=== PATIENT | female | born 1940 | race Caucasian/White ===

== ENCOUNTER → 2017-10-16 | Outpatient (CLI) | payer MEDICARE, BC ==
[~2017-10-16] MED LIST: ASPI325 PO; BREO ELLIPTA 11 EACH IH; CULTURELLE1 EACH PO; Dilt-Xr120 MG PO; ESTROGEN PATCH; FOLIC ACID PO; METTREX2.5; OMEP20ER PO; POLY500 PO; PROBIOTIC1 EAC2 PO; Remicade100 MG IV; [UNRECOGNIZED DRUG - OTHER]; [UNRECOGNIZED DRUG - REMARK]
== END ==
LOC: LAB SHORT 08:15 → LAB 08:15 → LAB FUT 10-11 15:10
DX: A09 Infectious gastroenteritis and colitis, unspecified (principal)
CPT/HCPCS: 87015; 87045; 87046; 87177; 87205; 87209; 87493; 87899

== ENCOUNTER 2017-10-21 00:42 | Day surgery (SDC) | payer MEDICARE, BC ==
[~2017-10-21 00:42] MED LIST changes: -CULTURELLE1 EACH PO
[2017-10-21 09:31] LABS: BASOPHILS ABSOLUTE AUTO 0.06 K/mm3 (0.00-0.23); BASOPHILS PERCENT AUTO 1 % (0-2); EOSINOPHILS ABSOLUTE AUTO 0.34 K/mm3 (0.00-0.68); EOSINOPHILS PERCENT AUTO 5 % (0-6); Hematocrit 38.8 % (33.0-51.0); IMMATURE GRAN ABSOLUTE AUTO 0.02 K/mm3 (0.00-0.10); IMMATURE GRAN PERCENT AUTO 0 % (0-1); LYMPHOCYTES ABSOLUTE AUTO 1.86 K/mm3 (0.84-5.20); LYMPHOCYTES PERCENT AUTO 26 % (21-46); MONOCYTES PERCENT AUTO 14 % (4-13); Mean Corpuscular HGB 33.3 pg (26.0-34.0); Mean Corpuscular HGB Conc 33.5 g/dL (31.5-36.5); Mean Corpuscular Volume 100 fL (80-100); Mean Platelet Volume 9.4 fL (9.1-12.4); NEUTROPHILS ABSOLUTE AUTO 3.96 K/mm3 (1.96-9.15); NEUTROPHILS PERCENT AUTO 55 % (41-73); Platelet Count 315 K/mm3 (150-400); RDW Coefficient Variation 14.7 % (11.7-14.2); RDW Standard Deviation 53.4 fL (35.1-46.3); White Blood Cell Count 7.24 K/mm3 (4.00-11.30)
[2017-10-21 09:51] LABS: Alanine Aminotransfer (ALT/SGP 18 U/L (12-78); Albumin, Blood 3.5 g/dL (3.4-5.0); Albumin/Globulin Ratio 0.9 (0.8-1.8); Alk Phos 73 U/L (50-136); Anion Gap 6 mmol/L (6-16); Aspartate Aminotrans (AST/SGOT 15 U/L (12-37); Bilirubin, Total 0.3 mg/dL (0.1-1.0); Blood Urea Nitrogen 22 mg/dL (8-24); Bun/Creatinine Ratio 30.6 (12.0-20.0); CO2, Blood 26 mmol/L (21-32); Calcium, Blood 8.9 mg/dL (8.5-10.1); Chloride, Blood 108 mmol/L (98-108); Creatinine, Blood 0.72 mg/dL (0.40-1.00); Globulin, Blood 4.1 g/dL (2.2-4.0); Glomerular Filtration Rate >60 (60-); Glucose, Blood 84 mg/dL (70-99); Potassium, Blood 4.6 mmol/L (3.5-5.5); Sodium, Blood 140 mmol/L (136-145); Total Protein, Blood 7.6 g/dL (6.4-8.2)
== END 2017-10-21 11:23 | disposition home or self-care (01) ==
LOC: ATC 00:42
PROVIDERS: Family Medicine
DX: M06.9 Rheumatoid arthritis, unspecified (principal); Z87.891 Personal history of nicotine dependence; I10 Essential (primary) hypertension; K21.9 Gastro-esophageal reflux disease without esophagitis
CPT/HCPCS: 80053; 85025; 96413; 96415; J1745; J7050; Q5102-ZB

== ENCOUNTER 2017-12-16 01:15 | Day surgery (SDC) | payer MEDICARE, BC ==
[2017-12-16] MEDS ORDERED: CULTURELLE1 EACH PO (09:18)
[2017-12-16 09:29] LABS: BASOPHILS ABSOLUTE AUTO 0.06 K/mm3 (0.00-0.23); BASOPHILS PERCENT AUTO 1 % (0-2); EOSINOPHILS ABSOLUTE AUTO 0.26 K/mm3 (0.00-0.68); EOSINOPHILS PERCENT AUTO 4 % (0-6); Hemoglobin 13.7 g/dL (11.5-16.0); IMMATURE GRAN ABSOLUTE AUTO 0.01 K/mm3 (0.00-0.10); IMMATURE GRAN PERCENT AUTO 0 % (0-1); LYMPHOCYTES ABSOLUTE AUTO 1.96 K/mm3 (0.84-5.20); LYMPHOCYTES PERCENT AUTO 28 % (21-46); MONOCYTES ABSOLUTE AUTO 0.88 K/mm3 (0.16-1.47); MONOCYTES PERCENT AUTO 12 % (4-13); Mean Corpuscular HGB 32.6 pg (26.0-34.0); Mean Corpuscular HGB Conc 32.6 g/dL (31.5-36.5); Mean Corpuscular Volume 100 fL (80-100); Mean Platelet Volume 8.8 fL (9.1-12.4); NEUTROPHILS ABSOLUTE AUTO 3.91 K/mm3 (1.96-9.15); NEUTROPHILS PERCENT AUTO 55 % (41-73); Platelet Count 271 K/mm3 (150-400); RDW Coefficient Variation 13.9 % (11.7-14.2); RDW Standard Deviation 51.1 fL (35.1-46.3); White Blood Cell Count 7.08 K/mm3 (4.00-11.30)
[2017-12-16 09:57] LABS: Alanine Aminotransfer (ALT/SGP 23 U/L (12-78); Albumin, Blood 3.6 g/dL (3.4-5.0); Albumin/Globulin Ratio 0.8 (0.8-1.8); Alk Phos 78 U/L (50-136); Anion Gap 9 mmol/L (6-16); Aspartate Aminotrans (AST/SGOT 23 U/L (12-37); Bilirubin, Total 0.5 mg/dL (0.1-1.0); Blood Urea Nitrogen 24 mg/dL (8-24); Bun/Creatinine Ratio 31.3 (12.0-20.0); CO2, Blood 24 mmol/L (21-32); Calcium, Blood 9.3 mg/dL (8.5-10.1); Chloride, Blood 106 mmol/L (98-108); Creatinine, Blood 0.77 mg/dL (0.40-1.00); Globulin, Blood 4.5 g/dL (2.2-4.0); Glomerular Filtration Rate >60 (60-); Glucose, Blood 71 mg/dL (70-99); Potassium, Blood 4.2 mmol/L (3.5-5.5); Sodium, Blood 139 mmol/L (136-145); Total Protein, Blood 8.1 g/dL (6.4-8.2)
== END 2017-12-16 11:29 | disposition home or self-care (01) ==
LOC: ATC 01:15
PROVIDERS: Family Medicine
DX: M06.9 Rheumatoid arthritis, unspecified (principal)
CPT/HCPCS: 80053; 85025; 96413; 96415

== ENCOUNTER → 2018-06-16 | Outpatient (CLI) | payer MEDICARE, BC ==
[~2018-06-16] MED LIST changes: +CULTURELLE1 EACH PO
[2018-06-18 15:08] LABS: HPV 16 Negative (Negative); HPV 18 Negative (Negative); HPV OTHER HR TYPES Negative (Negative)
== END ==
LOC: LAB 15:11 → LAB SHORT 15:11
PROVIDERS: Nurse Practitioner Women's Health
DX: Z12.72 Encounter for screening for malignant neoplasm of vagina (principal)
CPT/HCPCS: 87624; G0123

== ENCOUNTER 2018-11-24 00:06 | Day surgery (SDC) | payer MEDICARE, BC ==
[2018-11-24 08:30] LABS: BASOPHILS PERCENT AUTO 1 % (0-2); EOSINOPHILS ABSOLUTE AUTO 0.41 K/mm3 (0.00-0.68); EOSINOPHILS PERCENT AUTO 5 % (0-6); Hematocrit 42.6 % (33.0-51.0); Hemoglobin 13.7 g/dL (11.5-16.0); IMMATURE GRAN ABSOLUTE AUTO 0.03 K/mm3 (0.00-0.10); IMMATURE GRAN PERCENT AUTO 0 % (0-1); LYMPHOCYTES ABSOLUTE AUTO 2.03 K/mm3 (0.84-5.20); LYMPHOCYTES PERCENT AUTO 25 % (21-46); MONOCYTES ABSOLUTE AUTO 1.08 K/mm3 (0.16-1.47); MONOCYTES PERCENT AUTO 13 % (4-13); Mean Corpuscular HGB 32.5 pg (26.0-34.0); Mean Corpuscular HGB Conc 32.2 g/dL (31.5-36.5); Mean Corpuscular Volume 101 fL (80-100); Mean Platelet Volume 9.3 fL (9.1-12.4); NEUTROPHILS ABSOLUTE AUTO 4.54 K/mm3 (1.96-9.15); NEUTROPHILS PERCENT AUTO 55 % (41-73); Platelet Count 294 K/mm3 (150-400); RDW Standard Deviation 51.5 fL (35.1-46.3); Red Blood Cell Count 4.21 M/mm3 (3.80-5.20); White Blood Cell Count 8.19 K/mm3 (4.00-11.30)
[2018-11-24 08:40] LABS: Alanine Aminotransfer (ALT/SGP 22 U/L (12-78); Albumin, Blood 3.4 g/dL (3.4-5.0); Albumin/Globulin Ratio 0.7 (0.8-1.8); Alk Phos 75 U/L (50-136); Anion Gap 7 mmol/L (6-16); Aspartate Aminotrans (AST/SGOT 22 U/L (12-37); Bilirubin, Total 0.3 mg/dL (0.1-1.0); Blood Urea Nitrogen 24 mg/dL (8-24); Bun/Creatinine Ratio 28.6 (12.0-20.0); CO2, Blood 25 mmol/L (21-32); Chloride, Blood 108 mmol/L (98-108); Creatinine, Blood 0.84 mg/dL (0.40-1.00); Globulin, Blood 4.6 g/dL (2.2-4.0); Glomerular Filtration Rate >60 (60-); Glucose, Blood 86 mg/dL (70-99); Potassium, Blood 4.1 mmol/L (3.5-5.5); Sodium, Blood 140 mmol/L (136-145)
== END 2018-11-24 10:26 | disposition home or self-care (01) ==
LOC: ATC 00:06
PROVIDERS: Family Medicine
DX: M06.9 Rheumatoid arthritis, unspecified (principal); Z79.899 Other long term (current) drug therapy; Z88.8 Allergy status to other drugs, medicaments and biological substances
CPT/HCPCS: 80053; 85025; 96413; 96415; J7050; Q5103

== ENCOUNTER 2019-01-19 00:24 | Day surgery (SDC) | payer MEDICARE, BC ==
--- NOTE | 2019-01-19 09:59 | NUR ---
UNABLE TO DRAW BLOOD BACK FROM IV, APPEARS TO BE AGAINST VALVE. PT STATES SHE DOESNT WANT TO BE HAVE ANOTHER NEEDLE FOR LABS AND SHE WILL EITHER WAIT UNTIL NEXT INFUSION OR GO TO OUTPATIENT LAB.
== END 2019-01-19 12:20 | disposition home or self-care (01) ==
LOC: ATC 00:24
DX: M06.9 Rheumatoid arthritis, unspecified (principal); K21.9 Gastro-esophageal reflux disease without esophagitis; I10 Essential (primary) hypertension; K59.09 Other constipation; Z88.2 Allergy status to sulfonamides; Z88.1 Allergy status to other antibiotic agents; Z88.5 Allergy status to narcotic agent
CPT/HCPCS: J7050; Q5103

== ENCOUNTER 2019-03-16 08:27 | Day surgery (SDC) | payer MEDICARE, BC ==
[2019-03-16 09:06] LABS: BASOPHILS ABSOLUTE AUTO 0.05 K/mm3 (0.00-0.23); BASOPHILS PERCENT AUTO 1 % (0-2); EOSINOPHILS ABSOLUTE AUTO 0.32 K/mm3 (0.00-0.68); EOSINOPHILS PERCENT AUTO 5 % (0-6); Hematocrit 39.4 % (33.0-51.0); Hemoglobin 12.8 g/dL (11.5-16.0); IMMATURE GRAN ABSOLUTE AUTO 0.01 K/mm3 (0.00-0.10); IMMATURE GRAN PERCENT AUTO 0 % (0-1); LYMPHOCYTES ABSOLUTE AUTO 1.92 K/mm3 (0.84-5.20); LYMPHOCYTES PERCENT AUTO 29 % (21-46); MONOCYTES ABSOLUTE AUTO 0.85 K/mm3 (0.16-1.47); MONOCYTES PERCENT AUTO 13 % (4-13); Mean Corpuscular HGB Conc 32.5 g/dL (31.5-36.5); Mean Corpuscular Volume 102 fL (80-100); Mean Platelet Volume 9.6 fL (9.1-12.4); NEUTROPHILS ABSOLUTE AUTO 3.49 K/mm3 (1.96-9.15); NEUTROPHILS PERCENT AUTO 53 % (41-73); Platelet Count 263 K/mm3 (150-400); RDW Coefficient Variation 13.7 % (11.7-14.2); Red Blood Cell Count 3.88 M/mm3 (3.80-5.20); White Blood Cell Count 6.64 K/mm3 (4.00-11.30)
[2019-03-16 09:31] LABS: Alanine Aminotransfer (ALT/SGP 19 U/L (12-78); Albumin, Blood 3.5 g/dL (3.4-5.0); Albumin/Globulin Ratio 0.8 (0.8-1.8); Alk Phos 67 U/L (50-136); Anion Gap 6 mmol/L (6-16); Aspartate Aminotrans (AST/SGOT 26 U/L (12-37); Bilirubin, Total 0.4 mg/dL (0.1-1.0); Blood Urea Nitrogen 27 mg/dL (8-24); Bun/Creatinine Ratio 32.2 (12.0-20.0); CO2, Blood 26 mmol/L (21-32); Calcium, Blood 8.8 mg/dL (8.5-10.1); Chloride, Blood 108 mmol/L (98-108); Creatinine, Blood 0.84 mg/dL (0.40-1.00); Globulin, Blood 4.2 g/dL (2.2-4.0); Glomerular Filtration Rate >60 (60-); Glucose, Blood 71 mg/dL (70-99); Potassium, Blood 4.2 mmol/L (3.5-5.5); Sodium, Blood 140 mmol/L (136-145); Total Protein, Blood 7.7 g/dL (6.4-8.2)
== END 2019-03-16 11:04 | disposition home or self-care (01) ==
LOC: ATC 08:27
PROVIDERS: Family Medicine
DX: M06.9 Rheumatoid arthritis, unspecified (principal); I10 Essential (primary) hypertension; K21.9 Gastro-esophageal reflux disease without esophagitis; Z79.899 Other long term (current) drug therapy; Z87.891 Personal history of nicotine dependence
CPT/HCPCS: 80053; 85025; 96413; 96415; J7050; Q5103

== ENCOUNTER 2019-05-11 08:30 | Day surgery (SDC) | payer MEDICARE, BC ==
[2019-05-11 09:08] LABS: BASOPHILS ABSOLUTE AUTO 0.09 K/mm3 (0.00-0.23); BASOPHILS PERCENT AUTO 1 % (0-2); EOSINOPHILS ABSOLUTE AUTO 0.34 K/mm3 (0.00-0.68); EOSINOPHILS PERCENT AUTO 5 % (0-6); Hematocrit 40.5 % (33.0-51.0); Hemoglobin 13.1 g/dL (11.5-16.0); IMMATURE GRAN ABSOLUTE AUTO 0.02 K/mm3 (0.00-0.10); IMMATURE GRAN PERCENT AUTO 0 % (0-1); LYMPHOCYTES ABSOLUTE AUTO 1.76 K/mm3 (0.84-5.20); LYMPHOCYTES PERCENT AUTO 26 % (21-46); MONOCYTES ABSOLUTE AUTO 0.89 K/mm3 (0.16-1.47); MONOCYTES PERCENT AUTO 13 % (4-13); Mean Corpuscular HGB 32.6 pg (26.0-34.0); Mean Corpuscular HGB Conc 32.3 g/dL (31.5-36.5); Mean Corpuscular Volume 101 fL (80-100); Mean Platelet Volume 9.4 fL (9.1-12.4); NEUTROPHILS ABSOLUTE AUTO 3.66 K/mm3 (1.96-9.15); NEUTROPHILS PERCENT AUTO 54 % (41-73); Platelet Count 249 K/mm3 (150-400); RDW Coefficient Variation 13.4 % (11.7-14.2); RDW Standard Deviation 49.6 fL (35.1-46.3); Red Blood Cell Count 4.02 M/mm3 (3.80-5.20); White Blood Cell Count 6.76 K/mm3 (4.00-11.30)
[2019-05-11 09:32] LABS: Alanine Aminotransfer (ALT/SGP 16 U/L (12-78); Albumin, Blood 3.3 g/dL (3.4-5.0); Albumin/Globulin Ratio 0.8 (0.8-1.8); Alk Phos 70 U/L (50-136); Anion Gap 7 mmol/L (6-16); Aspartate Aminotrans (AST/SGOT 14 U/L (12-37); Bilirubin, Total 0.3 mg/dL (0.1-1.0); Blood Urea Nitrogen 32 mg/dL (8-24); Bun/Creatinine Ratio 40.3 (12.0-20.0); CO2, Blood 26 mmol/L (21-32); Chloride, Blood 107 mmol/L (98-108); Globulin, Blood 4.3 g/dL (2.2-4.0); Glomerular Filtration Rate >60 (60-); Glucose, Blood 86 mg/dL (70-99); Potassium, Blood 4.2 mmol/L (3.5-5.5); Sodium, Blood 140 mmol/L (136-145); Total Protein, Blood 7.6 g/dL (6.4-8.2)
== END 2019-05-11 11:20 | disposition home or self-care (01) ==
LOC: ATC 08:30
PROVIDERS: Family Medicine
DX: M06.9 Rheumatoid arthritis, unspecified (principal); K59.09 Other constipation; K21.9 Gastro-esophageal reflux disease without esophagitis; I10 Essential (primary) hypertension; Z88.2 Allergy status to sulfonamides; Z88.1 Allergy status to other antibiotic agents; Z88.5 Allergy status to narcotic agent
CPT/HCPCS: 80053; 85025; 96413; 96415; J7050; Q5103

== ENCOUNTER 2019-07-06 00:11 | Day surgery (SDC) | payer MEDICARE, BC ==
[2019-07-06] MEDS ORDERED: FURO20 (08:32)
[2019-07-06 09:04] LABS: BASOPHILS ABSOLUTE AUTO 0.06 K/mm3 (0.00-0.23); BASOPHILS PERCENT AUTO 1 % (0-2); EOSINOPHILS ABSOLUTE AUTO 0.23 K/mm3 (0.00-0.68); EOSINOPHILS PERCENT AUTO 3 % (0-6); Hematocrit 41.7 % (33.0-51.0); Hemoglobin 13.4 g/dL (11.5-16.0); IMMATURE GRAN ABSOLUTE AUTO 0.01 K/mm3 (0.00-0.10); IMMATURE GRAN PERCENT AUTO 0 % (0-1); LYMPHOCYTES ABSOLUTE AUTO 2.26 K/mm3 (0.84-5.20); LYMPHOCYTES PERCENT AUTO 31 % (21-46); MONOCYTES ABSOLUTE AUTO 0.96 K/mm3 (0.16-1.47); MONOCYTES PERCENT AUTO 13 % (4-13); Mean Corpuscular HGB 31.8 pg (26.0-34.0); Mean Corpuscular HGB Conc 32.1 g/dL (31.5-36.5); Mean Corpuscular Volume 99 fL (80-100); Mean Platelet Volume 9.7 fL (9.1-12.4); NEUTROPHILS ABSOLUTE AUTO 3.77 K/mm3 (1.96-9.15); NEUTROPHILS PERCENT AUTO 52 % (41-73); Platelet Count 288 K/mm3 (150-400); RDW Coefficient Variation 13.6 % (11.7-14.2); RDW Standard Deviation 49.2 fL (35.1-46.3); Red Blood Cell Count 4.22 M/mm3 (3.80-5.20); White Blood Cell Count 7.29 K/mm3 (4.00-11.30)
[2019-07-06 09:23] LABS: Alanine Aminotransfer (ALT/SGP 13 U/L (12-78); Albumin, Blood 3.5 g/dL (3.4-5.0); Albumin/Globulin Ratio 0.8 (0.8-1.8); Alk Phos 74 U/L (50-136); Anion Gap 4 mmol/L (6-16); Aspartate Aminotrans (AST/SGOT 16 U/L (12-37); Bilirubin, Total 0.3 mg/dL (0.1-1.0); Blood Urea Nitrogen 37 mg/dL (8-24); Bun/Creatinine Ratio 39.8 (12.0-20.0); CO2, Blood 28 mmol/L (21-32); Chloride, Blood 106 mmol/L (98-108); Creatinine, Blood 0.93 mg/dL (0.40-1.00); Globulin, Blood 4.3 g/dL (2.2-4.0); Glomerular Filtration Rate >60 (60-); Glucose, Blood 98 mg/dL (70-99); Potassium, Blood 3.9 mmol/L (3.5-5.5); Sodium, Blood 138 mmol/L (136-145); Total Protein, Blood 7.8 g/dL (6.4-8.2)
== END 2019-07-06 11:01 | disposition home or self-care (01) ==
LOC: ATC 00:11
PROVIDERS: Family Medicine
DX: M06.9 Rheumatoid arthritis, unspecified (principal); I10 Essential (primary) hypertension; Z88.2 Allergy status to sulfonamides; Z88.1 Allergy status to other antibiotic agents; Z88.5 Allergy status to narcotic agent
CPT/HCPCS: 80053; 85025; 96413; 96415; J7050; Q5103

== ENCOUNTER 2019-08-31 00:26 | Day surgery (SDC) | payer MEDICARE, BC ==
[~2019-08-31 00:26] MED LIST changes: +FURO20
[2019-08-31] MEDS ORDERED: INFLECTRA100 MG IV (09:48)
[2019-08-31 10:11] LABS: BASOPHILS ABSOLUTE AUTO 0.07 K/mm3 (0.00-0.23); BASOPHILS PERCENT AUTO 1 % (0-2); EOSINOPHILS ABSOLUTE AUTO 0.22 K/mm3 (0.00-0.68); EOSINOPHILS PERCENT AUTO 3 % (0-6); Hemoglobin 12.4 g/dL (11.5-16.0); IMMATURE GRAN ABSOLUTE AUTO 0.01 K/mm3 (0.00-0.10); IMMATURE GRAN PERCENT AUTO 0 % (0-1); LYMPHOCYTES PERCENT AUTO 21 % (21-46); MONOCYTES ABSOLUTE AUTO 1.01 K/mm3 (0.16-1.47); MONOCYTES PERCENT AUTO 13 % (4-13); Mean Corpuscular HGB Conc 32.6 g/dL (31.5-36.5); Mean Corpuscular Volume 101 fL (80-100); Mean Platelet Volume 11.7 fL (9.1-12.4); NEUTROPHILS PERCENT AUTO 63 % (41-73); Platelet Count 361 K/mm3 (150-400); RDW Coefficient Variation 14.7 % (11.7-14.2); RDW Standard Deviation 53.2 fL (35.1-46.3); Red Blood Cell Count 3.76 M/mm3 (3.80-5.20); White Blood Cell Count 7.81 K/mm3 (4.00-11.30)
--- NOTE | 2019-08-31 12:21 | NUR ---
PER LAB, CHEM PANEL WAS NOT REPORTED D/T BEING HEMOLYZIED. CBC WAS DRAWN IN 10ML, SAME GREEN TOP. ATTEMPTED TO DRAW OUT OF IV AFTER INFUSION COMPLETE AND FLUSHED WITH 20 ML NS. NOT ABLE TO WITHDRAW BLOOD AND PT REPORTED SHE DID NOT WANT A BLOOD DRAW "STICK". CBC REPORT BACK FROM LAB.
== END 2019-08-31 12:18 | disposition home or self-care (01) ==
LOC: ATC 00:26
PROVIDERS: Family Medicine
DX: M06.9 Rheumatoid arthritis, unspecified (principal); B35.1 Tinea unguium; L84 Corns and callosities; I70.209 Unspecified atherosclerosis of native arteries of extremities, unspecified extremity; M20.40 Other hammer toe(s) (acquired), unspecified foot; Z87.891 Personal history of nicotine dependence
CPT/HCPCS: 85025; 96413; 96415; J7050; Q5103

== ENCOUNTER 2020-01-04 00:30 | Day surgery (SDC) | payer MEDICARE, BC ==
[~2020-01-04 00:30] MED LIST changes: +INFLECTRA100 MG IV
[2020-01-04] MEDS ORDERED: ALBU3IS INH (09:00)
[2020-01-04 09:38] LABS: BASOPHILS ABSOLUTE AUTO 0.08 K/mm3 (0.00-0.23); BASOPHILS PERCENT AUTO 1 % (0-2); EOSINOPHILS ABSOLUTE AUTO 0.33 K/mm3 (0.00-0.68); EOSINOPHILS PERCENT AUTO 4 % (0-6); Hematocrit 41.2 % (33.0-51.0); Hemoglobin 13.2 g/dL (11.5-16.0); IMMATURE GRAN ABSOLUTE AUTO 0.02 K/mm3 (0.00-0.10); IMMATURE GRAN PERCENT AUTO 0 % (0-1); LYMPHOCYTES ABSOLUTE AUTO 2.27 K/mm3 (0.84-5.20); LYMPHOCYTES PERCENT AUTO 29 % (21-46); MONOCYTES ABSOLUTE AUTO 0.82 K/mm3 (0.16-1.47); MONOCYTES PERCENT AUTO 11 % (4-13); Mean Corpuscular HGB 32.4 pg (26.0-34.0); Mean Corpuscular Volume 101 fL (80-100); Mean Platelet Volume 10.3 fL (9.1-12.4); NEUTROPHILS PERCENT AUTO 55 % (41-73); Platelet Count 292 K/mm3 (150-400); RDW Coefficient Variation 14.1 % (11.7-14.2); RDW Standard Deviation 50.2 fL (35.1-46.3); Red Blood Cell Count 4.08 M/mm3 (3.80-5.20); White Blood Cell Count 7.82 K/mm3 (4.00-11.30)
== END 2020-01-04 11:38 | disposition home or self-care (01) ==
LOC: ATC 00:30
PROVIDERS: Family Medicine
DX: M06.9 Rheumatoid arthritis, unspecified (principal); B35.1 Tinea unguium; L84 Corns and callosities; I70.209 Unspecified atherosclerosis of native arteries of extremities, unspecified extremity; M20.40 Other hammer toe(s) (acquired), unspecified foot; Z87.891 Personal history of nicotine dependence
CPT/HCPCS: 85025; J7050; Q5103

== ENCOUNTER 2020-03-07 00:20 | Day surgery (SDC) | payer MEDICARE, BC ==
[~2020-03-07 00:20] MED LIST changes: +ALBU3IS INH
[2020-03-07 09:49] LABS: BASOPHILS ABSOLUTE AUTO 0.04 K/mm3 (0.00-0.23); BASOPHILS PERCENT AUTO 1 % (0-2); EOSINOPHILS ABSOLUTE AUTO 0.27 K/mm3 (0.00-0.68); EOSINOPHILS PERCENT AUTO 4 % (0-6); Hematocrit 35.8 % (33.0-51.0); Hemoglobin 11.6 g/dL (11.5-16.0); IMMATURE GRAN ABSOLUTE AUTO 0.02 K/mm3 (0.00-0.10); IMMATURE GRAN PERCENT AUTO 0 % (0-1); LYMPHOCYTES ABSOLUTE AUTO 1.46 K/mm3 (0.84-5.20); LYMPHOCYTES PERCENT AUTO 22 % (21-46); MONOCYTES ABSOLUTE AUTO 0.81 K/mm3 (0.16-1.47); MONOCYTES PERCENT AUTO 12 % (4-13); Mean Corpuscular HGB 31.8 pg (26.0-34.0); Mean Corpuscular HGB Conc 32.4 g/dL (31.5-36.5); Mean Corpuscular Volume 98 fL (80-100); Mean Platelet Volume 9.3 fL (9.1-12.4); NEUTROPHILS PERCENT AUTO 61 % (41-73); Platelet Count 250 K/mm3 (150-400); RDW Coefficient Variation 14.3 % (11.7-14.2); RDW Standard Deviation 51.6 fL (35.1-46.3); Red Blood Cell Count 3.65 M/mm3 (3.80-5.20)
[2020-03-07 10:23] LABS: C-REACTIVE PROTEIN, EXT RANGE <0.290 mg/dL (0.000-0.300)
[2020-03-07 10:24] LABS: Alanine Aminotransfer (ALT/SGP 13 U/L (12-78); Albumin, Blood 3.1 g/dL (3.4-5.0); Albumin/Globulin Ratio 0.8 (0.8-1.8); Alk Phos 64 U/L (50-136); Anion Gap 7 mmol/L (6-16); Aspartate Aminotrans (AST/SGOT 19 U/L (12-37); Bilirubin, Total 0.4 mg/dL (0.1-1.0); Blood Urea Nitrogen 24 mg/dL (8-24); Bun/Creatinine Ratio 29.2 (12.0-20.0); CO2, Blood 21 mmol/L (21-32); Calcium, Blood 8.3 mg/dL (8.5-10.1); Chloride, Blood 112 mmol/L (98-108); Creatinine, Blood 0.82 mg/dL (0.40-1.00); Globulin, Blood 3.7 g/dL (2.2-4.0); Glomerular Filtration Rate >60 (60-); Glucose, Blood 88 mg/dL (70-99); Potassium, Blood 3.8 mmol/L (3.5-5.5); Sodium, Blood 140 mmol/L (136-145); Total Protein, Blood 6.8 g/dL (6.4-8.2)
== END 2020-03-07 11:50 | disposition home or self-care (01) ==
LOC: ATC 00:20
PROVIDERS: Family Medicine
DX: M06.9 Rheumatoid arthritis, unspecified (principal); Z87.891 Personal history of nicotine dependence; B35.1 Tinea unguium; L84 Corns and callosities; I70.209 Unspecified atherosclerosis of native arteries of extremities, unspecified extremity; M20.40 Other hammer toe(s) (acquired), unspecified foot
CPT/HCPCS: 80053; 85025; 86140; J7050; Q5103

== ENCOUNTER 2020-04-03 22:37 | Inpatient (IN) | payer MEDICARE, BC ==
[~2020-04-03] VITALS: Ht 154.9 cm; Wt 64.0 kg
[~2020-04-03 22:37] MED LIST changes: -ASPI325 PO; +Aspirin EC81 MG PO; -FURO20; +FURO20 PO; -METTREX2.5; +METTREX2.5 PO
[2020-04-03 23:24] LABS: BASOPHILS ABSOLUTE AUTO 0.07 K/mm3 (0.00-0.23); BASOPHILS PERCENT AUTO 1 % (0-2); EOSINOPHILS PERCENT AUTO 3 % (0-6); Hematocrit 40.4 % (33.0-51.0); Hemoglobin 13.1 g/dL (11.5-16.0); IMMATURE GRAN ABSOLUTE AUTO 0.02 K/mm3 (0.00-0.10); IMMATURE GRAN PERCENT AUTO 0 % (0-1); LYMPHOCYTES ABSOLUTE AUTO 2.25 K/mm3 (0.84-5.20); LYMPHOCYTES PERCENT AUTO 23 % (21-46); MONOCYTES ABSOLUTE AUTO 1.12 K/mm3 (0.16-1.47); MONOCYTES PERCENT AUTO 11 % (4-13); Mean Corpuscular HGB 31.3 pg (26.0-34.0); Mean Corpuscular HGB Conc 32.4 g/dL (31.5-36.5); Mean Corpuscular Volume 97 fL (80-100); Mean Platelet Volume 9.6 fL (9.1-12.4); NEUTROPHILS ABSOLUTE AUTO 6.25 K/mm3 (1.96-9.15); NEUTROPHILS PERCENT AUTO 62 % (41-73); Platelet Count 394 K/mm3 (150-400); RDW Coefficient Variation 14.5 % (11.7-14.2); RDW Standard Deviation 51.1 fL (35.1-46.3); Red Blood Cell Count 4.18 M/mm3 (3.80-5.20); White Blood Cell Count 10.01 K/mm3 (4.00-11.30)
[2020-04-03 23:45] LABS: Alanine Aminotransfer (ALT/SGP 21 U/L (12-78); Albumin, Blood 3.3 g/dL (3.4-5.0); Albumin/Globulin Ratio 0.7 (0.8-1.8); Alk Phos 87 U/L (50-136); Anion Gap 6 mmol/L (6-16); Aspartate Aminotrans (AST/SGOT 28 U/L (12-37); Bilirubin, Total 0.3 mg/dL (0.1-1.0); Blood Urea Nitrogen 31 mg/dL (8-24); Bun/Creatinine Ratio 35.3 (12.0-20.0); CO2, Blood 25 mmol/L (21-32); Calcium, Blood 8.8 mg/dL (8.5-10.1); Chloride, Blood 108 mmol/L (98-108); Creatinine, Blood 0.88 mg/dL (0.40-1.00); Globulin, Blood 4.9 g/dL (2.2-4.0); Glomerular Filtration Rate >60 (60-); Glucose, Blood 103 mg/dL (70-99); Potassium, Blood 4.1 mmol/L (3.5-5.5); Sodium, Blood 139 mmol/L (136-145); Total Protein, Blood 8.2 g/dL (6.4-8.2); Troponin I <0.015 ng/mL (0.000-0.040)
[2020-04-04 00:10] LABS: Source, Urine Clean Catch
[2020-04-04 00:16] LABS: Bilirubin, Urine Neg (Neg); Blood, Urine Neg (Neg); Glucose Qualitative, Urine Neg (Neg); Ketones, Urine Neg (Neg); Leukocyte Esterase, Urine Neg (Neg); Nitrite, Urine Neg (Neg); Protein, Urine Neg (Neg); Urobilinogen, Urine NORM (Normal); pH, Urine 6.5 (5.0-8.0)
[2020-04-04 00:23] LABS: Appearance, Urine Clear (Clear); Color, Urine Yellow (P-Yellow)
--- NOTE | 2020-04-04 02:45 | NUR ---
PT ARRIVED TO ROOM, A/O, BP ELEVATED, BELOW PRN PARAMETERS, PT DENIES CP/PRESSURE. PT REP PAIN IN MID-RUQ ABD, STATES PAIN BEGAN APPX 1300 04/03/20. PRN MEDS REV W/PT, PT STATES BETTER RELIEF W/DILAUDID VS FENTANYL. PLAN TO NOTIFY MD. BT HYPO, PT DENIES N/V AT THIS TIME. PT UP OOB W/SBA, SARAH WELL. PT ORIENTED TO ROOM/CALL LIGHT, WILL CONT TO MONITOR AND TX PER ORDERS.
--- NOTE | 2020-04-04 04:05 | NUR ---
DR LIND IN TO SEE PT. PLAN FOR OR EARLY THIS AM. NURSING SPECTACLE TRUER AWARE.
--- NOTE | 2020-04-04 04:41 | NUR ---
PT OR VIA ROOM BED. PT CALLED FOR UPDATE. ABX SENT W/LAP REGULATOR.
--- NOTE | 2020-04-04 07:27 | NUR ---
[place] of Care: Care assumed at 0700hr. NOC shift Rn reports patient arrived for PACU recovery at 0630hr. At shift change, patient drowsy but rouses to verbal stimuli. Oriented x4, able to move all extremities to command. C/o nausea, x1 prn phenergan given shortly after shift change. C/o pain, but patient sleeping, appears comfortable when not stimulated by staff, awaiting for patient to be more alert before administering prn pain medications. Mid-line ABD incision covered with gauze and clear occlusive dressing, BREN drain in place. ABD dressing compressed and intact, scant amount of red blood drainage at lower end of dressing, not actively bleeding, no drainage noted in BREN drain tubing. Ag cath in place, draining clear yellow urine. Peripheral IV x1 patent and intact. Will continue to monitor until transfer back to surgical floor.
[2020-04-04 12:02] LABS: BASOPHILS ABSOLUTE AUTO 0.02 K/mm3 (0.00-0.23); BASOPHILS PERCENT AUTO 0 % (0-2); EOSINOPHILS PERCENT AUTO 0 % (0-6); Hematocrit 41.9 % (33.0-51.0); Hemoglobin 13.3 g/dL (11.5-16.0); IMMATURE GRAN ABSOLUTE AUTO 0.04 K/mm3 (0.00-0.10); IMMATURE GRAN PERCENT AUTO 0 % (0-1); LYMPHOCYTES ABSOLUTE AUTO 0.37 K/mm3 (0.84-5.20); LYMPHOCYTES PERCENT AUTO 3 % (21-46); MONOCYTES ABSOLUTE AUTO 1.01 K/mm3 (0.16-1.47); MONOCYTES PERCENT AUTO 8 % (4-13); Mean Corpuscular HGB 31.5 pg (26.0-34.0); Mean Corpuscular HGB Conc 31.7 g/dL (31.5-36.5); Mean Corpuscular Volume 99 fL (80-100); Mean Platelet Volume 8.9 fL (9.1-12.4); NEUTROPHILS ABSOLUTE AUTO 10.82 K/mm3 (1.96-9.15); NEUTROPHILS PERCENT AUTO 88 % (41-73); Platelet Count 300 K/mm3 (150-400); RDW Coefficient Variation 14.6 % (11.7-14.2); RDW Standard Deviation 53.1 fL (35.1-46.3); Red Blood Cell Count 4.22 M/mm3 (3.80-5.20); White Blood Cell Count 12.26 K/mm3 (4.00-11.30)
[2020-04-04 12:19] LABS: Alanine Aminotransfer (ALT/SGP 149 U/L (12-78); Albumin, Blood 3.1 g/dL (3.4-5.0); Albumin/Globulin Ratio 0.7 (0.8-1.8); Alk Phos 85 U/L (50-136); Anion Gap 8 mmol/L (6-16); Aspartate Aminotrans (AST/SGOT 173 U/L (12-37); Bilirubin, Total 0.4 mg/dL (0.1-1.0); Blood Urea Nitrogen 20 mg/dL (8-24); Bun/Creatinine Ratio 26.1 (12.0-20.0); CO2, Blood 27 mmol/L (21-32); Calcium, Blood 8.3 mg/dL (8.5-10.1); Chloride, Blood 105 mmol/L (98-108); Creatinine, Blood 0.77 mg/dL (0.40-1.00); Globulin, Blood 4.3 g/dL (2.2-4.0); Glomerular Filtration Rate >60 (60-); Glucose, Blood 138 mg/dL (70-99); Potassium, Blood 3.2 mmol/L (3.5-5.5); Sodium, Blood 140 mmol/L (136-145); Total Protein, Blood 7.4 g/dL (6.4-8.2)
--- NOTE | 2020-04-04 19:41 | NUR ---
SHIFT SUMMARY PT A&OX4, VSS, RA, S/P EXP LAP R HEMICOLECTOMY, BREN DRY INTACT, SARAH CL DIET FOR DINNER, PAIN MANAGED WITH 0.5 MG DILAUDID PRN. IGLESIAS PATENT & DRAINING YELLOW URINE. REPORT GIVEN TO LONDON BUSTILLOS.
--- NOTE | 2020-04-05 06:43 | NUR ---
PATIENT WAS ABLE TO SLEEP AFTER BEING GIVEN PAIN MEDICATION FOR UP TO 4 HOURS LAST NIGHT. SHE MOVES SELF IN BED AND OCCASIONALLY FORGETS THAT SHE HAS A IGLESIAS CATH. NO ACUTE CHANGES. CALL LIGHT WITHIN REACH.
[2020-04-05 11:09] LABS: BASOPHILS ABSOLUTE AUTO 0.03 K/mm3 (0.00-0.23); BASOPHILS PERCENT AUTO 0 % (0-2); EOSINOPHILS PERCENT AUTO 0 % (0-6); Hematocrit 35.1 % (33.0-51.0); Hemoglobin 11.4 g/dL (11.5-16.0); IMMATURE GRAN ABSOLUTE AUTO 0.08 K/mm3 (0.00-0.10); IMMATURE GRAN PERCENT AUTO 1 % (0-1); LYMPHOCYTES ABSOLUTE AUTO 1.67 K/mm3 (0.84-5.20); LYMPHOCYTES PERCENT AUTO 10 % (21-46); MONOCYTES ABSOLUTE AUTO 0.93 K/mm3 (0.16-1.47); MONOCYTES PERCENT AUTO 6 % (4-13); Mean Corpuscular HGB 32.1 pg (26.0-34.0); Mean Corpuscular HGB Conc 32.5 g/dL (31.5-36.5); Mean Corpuscular Volume 99 fL (80-100); Mean Platelet Volume 9.5 fL (9.1-12.4); NEUTROPHILS ABSOLUTE AUTO 13.86 K/mm3 (1.96-9.15); NEUTROPHILS PERCENT AUTO 84 % (41-73); Platelet Count 272 K/mm3 (150-400); RDW Coefficient Variation 15.1 % (11.7-14.2); RDW Standard Deviation 54.6 fL (35.1-46.3); Red Blood Cell Count 3.55 M/mm3 (3.80-5.20); White Blood Cell Count 16.57 K/mm3 (4.00-11.30)
[2020-04-05 11:18] LABS: Calcium, Blood 8.2 mg/dL (8.5-10.1); Creatinine, Blood 1.36 mg/dL (0.40-1.00); Magnesium, Blood 1.9 mg/dL (1.6-2.4); Potassium, Blood 3.6 mmol/L (3.5-5.5)
--- NOTE | 2020-04-05 17:04 | NUR ---
SHIFT SUMMARY PT A&OX4, VSS/RA, POD1 R HEMICOLECTOMY, BREN MIDLINE. PAIN MANAGED WITH 0.5 MG DILAUDID. AMBULATION W/SBA & FWW OOB TO CHAIR. SARAH CL DIET; VERY LOW PO INTAKE. IVF LR @ 100 MLS/HR; ABX INFUSED PER EMAR. WILL REPORT TO ONCOMING NOC TRESSA.
[2020-04-06 04:14] LABS: BASOPHILS ABSOLUTE AUTO 0.02 K/mm3 (0.00-0.23); BASOPHILS PERCENT AUTO 0 % (0-2); EOSINOPHILS ABSOLUTE AUTO 0.09 K/mm3 (0.00-0.68); EOSINOPHILS PERCENT AUTO 1 % (0-6); Hematocrit 29.5 % (33.0-51.0); Hemoglobin 9.6 g/dL (11.5-16.0); IMMATURE GRAN ABSOLUTE AUTO 0.07 K/mm3 (0.00-0.10); IMMATURE GRAN PERCENT AUTO 1 % (0-1); LYMPHOCYTES ABSOLUTE AUTO 1.38 K/mm3 (0.84-5.20); LYMPHOCYTES PERCENT AUTO 10 % (21-46); MONOCYTES ABSOLUTE AUTO 0.59 K/mm3 (0.16-1.47); MONOCYTES PERCENT AUTO 4 % (4-13); Mean Corpuscular HGB 31.9 pg (26.0-34.0); Mean Corpuscular HGB Conc 32.5 g/dL (31.5-36.5); Mean Corpuscular Volume 98 fL (80-100); Mean Platelet Volume 9.6 fL (9.1-12.4); NEUTROPHILS ABSOLUTE AUTO 11.23 K/mm3 (1.96-9.15); NEUTROPHILS PERCENT AUTO 84 % (41-73); Platelet Count 219 K/mm3 (150-400); RDW Standard Deviation 53.4 fL (35.1-46.3); Red Blood Cell Count 3.01 M/mm3 (3.80-5.20); White Blood Cell Count 13.38 K/mm3 (4.00-11.30)
[2020-04-06 04:33] LABS: Bun/Creatinine Ratio 22.5 (12.0-20.0); Creatinine, Blood 0.98 mg/dL (0.40-1.00); Phosphorus, Blood 2.2 mg/dL (2.5-4.9)
--- NOTE | 2020-04-06 06:04 | NUR ---
SHIFT SUMMARY: "ZAFAR" IS A&O X4. SHE IS A ONE PERSON STANDBY ASSIST TO THE BATHROOM. SHE REPORTS SOME URGENCY, BUT NO OTHER DIFFICULTIES URINATING. ATTENDS IN PLACE TO HELP PREVENT HER FROM RUSHING TO THE BATHROOM. SHE REPORTS THAT 0.5 MG OF DILAUDID IS EFFECTIVE FOR HER PAIN. SHE IS TOLERATING CLEAR LIQUIDS, BUT REPORTS THAT ONLY HOT TEA IS APPETIZING TO HER AT THIS TIME. HER POTASSIUM WAS 3.0 THIS MORNING AND A DOSE OF 40 MEQ WAS GIVEN PER THE HOSPITALIST FOREIGN LANGUAGE PROFESSOR. SCDs IN PLACE. VSS, NO ACUTE EVENTS OVERNIGHT. IV TO RIGHT HAND PATENT. SHE IS LYING IN BED WITH HER CALL LIGHT IN REACH. WILL REPORT TO DAY SHIFT RN.
--- NOTE | 2020-04-06 17:55 | NUR ---
SUMMARY NO ACUTE CHANGES T/O SHIFT. MEDICATED TWICE DURING SHIFT FOR PAIN AND ONCE FOR NAUSEA. TOLERATING CLEAR LIQUIDS. SHOWERED THIS SHIFT AND SAT UP IN CHAIR. AMBULATING TO RESTROOM TO VOID. CALL LIGHT IN REACH.
--- NOTE | 2020-04-07 08:09 | NUR ---
SUMMARY PT VERB GOODF PAIN CONTROLL WITH DILAUDID AND 1 DOSE OF SUBLIMAZE. O FLATUS YET.
--- NOTE | 2020-04-07 17:22 | NUR ---
SHIFT SUMMARY PAIN HAS BEEN MANGED WITH IV DILAUDID THIS SHIFT. PT WAS ABLE TO GET OOB AND AMBULATE A SHORT DISTANCE IN THE HALWAYS. PT DENIES PASSING FLATUS. FAMILY HAS BEEN AT BEDSIDE FOR SUPPORT. VSS. WILL MONITOR UNTIL REPORT TO ONCOMING RN.
--- NOTE | 2020-04-07 19:52 | NUR ---
NAUSEA PT CONTINUES TO BE NAUSEATED EVEN AFTER HAVING ZOFRAN. ISTRATE NOTIFIED. XRAY ORDERED. REPORT GIVEN TO MONET BUSTILLOS
--- NOTE | 2020-04-08 00:30 | NUR ---
NG TUBE PLACEMENT C/O N/V, ORDER OBTAINED FOR PT TO BE NPO, & NG TUBE PLACEMENT TO LIWS. MEDICATED FOR N/V AND PAIN BEFORE PLACING A 14FR NG TUBE TO LEFT NARE. DURING PALCEMENT PT VOMITED 200ML GREEN BILIOUS FLUID. ORAL AND SKIN CARE PROVIDED WITH GOWN AND LINEN CHANGE. PLACEMENT VERIFIED WITH AIR BOULS AND RESIDUAL CHECK. AFTER PLACEMENT AND CLEANUP 300ML VISOUS GREEN/BROWN FLUID NOTED IN CANISTER VIA SUCTION SET TO LIWS. PT STATES THAT SHE IS FEELING MUCH BETTER. SAFETY MEASURES IN PLACE. WILL CONTNUE TO MONITOR.
[2020-04-08 04:03] LABS: BASOPHILS ABSOLUTE AUTO 0.02 K/mm3 (0.00-0.23); BASOPHILS PERCENT AUTO 0 % (0-2); EOSINOPHILS ABSOLUTE AUTO 0.03 K/mm3 (0.00-0.68); EOSINOPHILS PERCENT AUTO 0 % (0-6); Hematocrit 35.8 % (33.0-51.0); Hemoglobin 11.6 g/dL (11.5-16.0); IMMATURE GRAN ABSOLUTE AUTO 0.05 K/mm3 (0.00-0.10); IMMATURE GRAN PERCENT AUTO 0 % (0-1); LYMPHOCYTES ABSOLUTE AUTO 0.69 K/mm3 (0.84-5.20); LYMPHOCYTES PERCENT AUTO 6 % (21-46); MONOCYTES PERCENT AUTO 9 % (4-13); Mean Corpuscular HGB Conc 32.4 g/dL (31.5-36.5); Mean Corpuscular Volume 99 fL (80-100); Mean Platelet Volume 9.3 fL (9.1-12.4); NEUTROPHILS ABSOLUTE AUTO 10.08 K/mm3 (1.96-9.15); NEUTROPHILS PERCENT AUTO 84 % (41-73); Platelet Count 278 K/mm3 (150-400); RDW Coefficient Variation 14.3 % (11.7-14.2); RDW Standard Deviation 51.1 fL (35.1-46.3); Red Blood Cell Count 3.63 M/mm3 (3.80-5.20); White Blood Cell Count 11.97 K/mm3 (4.00-11.30)
[2020-04-08 04:17] LABS: Anion Gap 10 mmol/L (6-16); Blood Urea Nitrogen 14 mg/dL (8-24); Bun/Creatinine Ratio 18.1 (12.0-20.0); CO2, Blood 27 mmol/L (21-32); Calcium, Blood 8.7 mg/dL (8.5-10.1); Chloride, Blood 100 mmol/L (98-108); Creatinine, Blood 0.77 mg/dL (0.40-1.00); Glomerular Filtration Rate >60 (60-); Glucose, Blood 109 mg/dL (70-99); Magnesium, Blood 2.3 mg/dL (1.6-2.4); Phosphorus, Blood 4.1 mg/dL (2.5-4.9); Potassium, Blood 3.4 mmol/L (3.5-5.5); Sodium, Blood 137 mmol/L (136-145)
--- NOTE | 2020-04-08 05:35 | NUR ---
SHIFT SUMMARY LYING IN SEMI FOWLERS WITH EYES OPEN. HAS TAKEN SMALL NAPS THROUGHOUT SHIFT. SLEEP STUDY COMPLETED BY RT. HAS RESTED WELL SINCE NG TUBE PLACEMENT. 400ML OUTPUT NOTED IN CANISTER. DENIES PAIN, DISCOMFORT, OR FURTHER NEEDS AT THIS TIME. SAFETY MEASURES IN PLACE. WILL CONTINUE TO MONITOR AND GIVE HAND OFF TO ONCOMING SHIFT USING SBAR DURING BEDSIDE REPORT.
--- NOTE | 2020-04-08 07:55 | NUR ---
pt resting wakes to verbal stimuli pt stated min abd pain no nausea absent bt's x4 pt abd still dist pt stated ngt is really helping pain was 8/ vs 01/14
[2020-04-08 09:06] LABS: Source, Urine Clean Catch
[2020-04-08 09:10] LABS: Bilirubin, Urine Neg (Neg); Blood, Urine 2+ (Neg); Glucose Qualitative, Urine Neg (Neg); Ketones, Urine 4+ (Neg); Leukocyte Esterase, Urine 1+ (Neg); Nitrite, Urine Neg (Neg); Protein, Urine 3+ (Neg); Specific Gravity, Urine 1.025 (1.003-1.022); Urobilinogen, Urine NORM (Normal)
[2020-04-08 09:21] LABS: Appearance, Urine Hazy (Clear); Color, Urine Yellow (P-Yellow)
[2020-04-08 09:23] LABS: Bacteria Many /hpf; Squamous Epithelial Cells Many /hpf (Few)
--- NOTE | 2020-04-08 10:01 | NUR ---
pt stated pain is inc 02/13 req pain meds
--- NOTE | 2020-04-08 10:49 | NUR ---
dr longo and dr antoine by to see pt
--- NOTE | 2020-04-08 12:21 | NUR ---
PT STATED SHE THINKS THAT HER NGT IS NOT WORKING CHECKED IT PT STILL HAVING OCC COUGH
--- NOTE | 2020-04-08 18:06 | NUR ---
DR CASTANON SWAT TEAM MEMBER FOR DR LIND PT HAD VERY LARGE BM OK TO D/C NGT
[2020-04-09 04:42] LABS: BASOPHILS ABSOLUTE AUTO 0.06 K/mm3 (0.00-0.23); BASOPHILS PERCENT AUTO 0 % (0-2); EOSINOPHILS PERCENT AUTO 2 % (0-6); Hematocrit 34.7 % (33.0-51.0); IMMATURE GRAN ABSOLUTE AUTO 0.11 K/mm3 (0.00-0.10); IMMATURE GRAN PERCENT AUTO 1 % (0-1); LYMPHOCYTES ABSOLUTE AUTO 1.05 K/mm3 (0.84-5.20); LYMPHOCYTES PERCENT AUTO 6 % (21-46); MONOCYTES ABSOLUTE AUTO 1.55 K/mm3 (0.16-1.47); MONOCYTES PERCENT AUTO 9 % (4-13); Mean Corpuscular HGB 31.3 pg (26.0-34.0); Mean Corpuscular HGB Conc 31.7 g/dL (31.5-36.5); Mean Corpuscular Volume 99 fL (80-100); Mean Platelet Volume 9.1 fL (9.1-12.4); NEUTROPHILS ABSOLUTE AUTO 13.49 K/mm3 (1.96-9.15); NEUTROPHILS PERCENT AUTO 81 % (41-73); Platelet Count 309 K/mm3 (150-400); RDW Coefficient Variation 14.2 % (11.7-14.2); RDW Standard Deviation 51.1 fL (35.1-46.3); Red Blood Cell Count 3.52 M/mm3 (3.80-5.20); White Blood Cell Count 16.56 K/mm3 (4.00-11.30)
[2020-04-09 05:04] LABS: Alanine Aminotransfer (ALT/SGP 37 U/L (12-78); Albumin, Blood 2.2 g/dL (3.4-5.0); Albumin/Globulin Ratio 0.4 (0.8-1.8); Alk Phos 89 U/L (50-136); Anion Gap 10 mmol/L (6-16); Aspartate Aminotrans (AST/SGOT 18 U/L (12-37); Bilirubin, Total 0.7 mg/dL (0.1-1.0); Blood Urea Nitrogen 15 mg/dL (8-24); Bun/Creatinine Ratio 22.9 (12.0-20.0); CO2, Blood 25 mmol/L (21-32); Calcium, Blood 8.5 mg/dL (8.5-10.1); Chloride, Blood 102 mmol/L (98-108); Creatinine, Blood 0.66 mg/dL (0.40-1.00); Globulin, Blood 4.9 g/dL (2.2-4.0); Glomerular Filtration Rate >60 (60-); Glucose, Blood 80 mg/dL (70-99); Potassium, Blood 3.3 mmol/L (3.5-5.5); Sodium, Blood 137 mmol/L (136-145); Total Protein, Blood 7.1 g/dL (6.4-8.2)
--- NOTE | 2020-04-09 08:06 | NUR ---
ASSUMED CARE OF PT @ 0030 PT HAS HOARSE VOICE, EDEMA AND TAKES LASIX AT HOME,ALSO SMALL STREAKING OF FRESH APPEARING BLOOD ON TOILET PAPER WHEN WIPING,PT REPORTS HX HEMORHOIDS AND BLEEDING ULCERS 20+ YEARS AGO. DAY RN PRAVIN AWARE AND WILL FOLLOW UP.
[2020-04-10 04:28] LABS: BASOPHILS ABSOLUTE AUTO 0.05 K/mm3 (0.00-0.23); BASOPHILS PERCENT AUTO 0 % (0-2); EOSINOPHILS ABSOLUTE AUTO 0.39 K/mm3 (0.00-0.68); EOSINOPHILS PERCENT AUTO 3 % (0-6); Hematocrit 30.2 % (33.0-51.0); Hemoglobin 9.7 g/dL (11.5-16.0); IMMATURE GRAN ABSOLUTE AUTO 0.11 K/mm3 (0.00-0.10); IMMATURE GRAN PERCENT AUTO 1 % (0-1); LYMPHOCYTES ABSOLUTE AUTO 1.23 K/mm3 (0.84-5.20); LYMPHOCYTES PERCENT AUTO 8 % (21-46); MONOCYTES ABSOLUTE AUTO 1.79 K/mm3 (0.16-1.47); MONOCYTES PERCENT AUTO 12 % (4-13); Mean Corpuscular HGB 31.7 pg (26.0-34.0); Mean Corpuscular HGB Conc 32.1 g/dL (31.5-36.5); Mean Corpuscular Volume 99 fL (80-100); NEUTROPHILS ABSOLUTE AUTO 12.04 K/mm3 (1.96-9.15); NEUTROPHILS PERCENT AUTO 77 % (41-73); Platelet Count 319 K/mm3 (150-400); RDW Coefficient Variation 14.2 % (11.7-14.2); RDW Standard Deviation 51.6 fL (35.1-46.3); Red Blood Cell Count 3.06 M/mm3 (3.80-5.20); White Blood Cell Count 15.61 K/mm3 (4.00-11.30)
[2020-04-10 04:47] LABS: Alanine Aminotransfer (ALT/SGP 27 U/L (12-78); Albumin/Globulin Ratio 0.4 (0.8-1.8); Alk Phos 84 U/L (50-136); Anion Gap 11 mmol/L (6-16); Aspartate Aminotrans (AST/SGOT 21 U/L (12-37); Bilirubin, Total 0.6 mg/dL (0.1-1.0); Blood Urea Nitrogen 14 mg/dL (8-24); Bun/Creatinine Ratio 19.7 (12.0-20.0); CO2, Blood 24 mmol/L (21-32); Calcium, Blood 8.2 mg/dL (8.5-10.1); Chloride, Blood 103 mmol/L (98-108); Creatinine, Blood 0.71 mg/dL (0.40-1.00); Globulin, Blood 4.6 g/dL (2.2-4.0); Glomerular Filtration Rate >60 (60-); Glucose, Blood 77 mg/dL (70-99); Potassium, Blood 3.1 mmol/L (3.5-5.5); Sodium, Blood 138 mmol/L (136-145); Total Protein, Blood 6.6 g/dL (6.4-8.2)
--- NOTE | 2020-04-10 05:45 | NUR ---
SHIFT SUMMARY: "ZAFAR" IS A&OX4. SHE IS A ONE PERSON STANDBY ASSIST TO THE BATHROOM. SHE IS HAVING LIQUID BMs AND URINATING WITHOUT DIFFICULTY. SHE DENIES PASSING GAS. SHE STATES THAT 1 MG OF DILAUDID IS EFFECTIVE AT KEEPING HER PAIN TOLERABLE. SHE HAS COMPLAINED OF LOW BACK PAIN WELL ABDOMINAL PAIN. SHE IS TOLERATING SIPS OF HOT TEA. SHE USES THE CALL LIGHT APPROPRIATELY. VSS, NO ACUTE EVENTS OVERNIGHT. HER BP REMAINS WITH SBPs IN THE 160s. POTASSIUM THIS MORNING 3.1, HOSPITALIST PASTING MACHINE OFFBEARER NOTIFIED. ZAFAR IS LYING IN BED WITH THE CALL LIGHT IN REACH. WILL REPORT TO DAY SHIFT RN.
--- NOTE | 2020-04-10 16:08 | NUR ---
SHIFT SUMMARY PT STARTED PASSING FLATUS THIS SHIFT AND TOLERATING CLEAR LIQS. MIDLINE BREN DRESSING UNCHANGED FROM THIS MORNING AND INTACT. 1 MG IV DILAUDID PRN FOR PAIN. IVF INFUSING PER ORDERS. PT UP IN CHAIR MOST OF SHIFT. 1 SBA/INDEPENDENT IN ROOM. SIG OTHER AT BEDSIDE FOR SUPPORT. USES CALL LIGHT APPROPRIATELY.
--- NOTE | 2020-04-10 23:45 | NUR ---
REPORT REC FROM TRESSA KAM. PT SLEEPING IN BED, RESP E/U, NO DISTRESS NOTED. WILL MONITOR AND TX PER ORDERS.
[2020-04-11 04:48] LABS: BASOPHILS ABSOLUTE AUTO 0.03 K/mm3 (0.00-0.23); BASOPHILS PERCENT AUTO 0 % (0-2); EOSINOPHILS ABSOLUTE AUTO 0.33 K/mm3 (0.00-0.68); EOSINOPHILS PERCENT AUTO 3 % (0-6); Hemoglobin 10.1 g/dL (11.5-16.0); IMMATURE GRAN ABSOLUTE AUTO 0.13 K/mm3 (0.00-0.10); IMMATURE GRAN PERCENT AUTO 1 % (0-1); LYMPHOCYTES ABSOLUTE AUTO 1.25 K/mm3 (0.84-5.20); LYMPHOCYTES PERCENT AUTO 10 % (21-46); MONOCYTES ABSOLUTE AUTO 1.53 K/mm3 (0.16-1.47); MONOCYTES PERCENT AUTO 12 % (4-13); Mean Corpuscular HGB 31.6 pg (26.0-34.0); Mean Corpuscular HGB Conc 32.6 g/dL (31.5-36.5); Mean Corpuscular Volume 97 fL (80-100); Mean Platelet Volume 8.8 fL (9.1-12.4); NEUTROPHILS ABSOLUTE AUTO 9.76 K/mm3 (1.96-9.15); NEUTROPHILS PERCENT AUTO 75 % (41-73); Platelet Count 372 K/mm3 (150-400); RDW Coefficient Variation 14.1 % (11.7-14.2); White Blood Cell Count 13.03 K/mm3 (4.00-11.30)
[2020-04-11 05:07] LABS: Alanine Aminotransfer (ALT/SGP 23 U/L (12-78); Albumin/Globulin Ratio 0.4 (0.8-1.8); Alk Phos 85 U/L (50-136); Anion Gap 8 mmol/L (6-16); Aspartate Aminotrans (AST/SGOT 21 U/L (12-37); Bilirubin, Total 0.5 mg/dL (0.1-1.0); Blood Urea Nitrogen 11 mg/dL (8-24); Bun/Creatinine Ratio 16.5 (12.0-20.0); CO2, Blood 26 mmol/L (21-32); Calcium, Blood 8.1 mg/dL (8.5-10.1); Chloride, Blood 104 mmol/L (98-108); Creatinine, Blood 0.67 mg/dL (0.40-1.00); Globulin, Blood 4.6 g/dL (2.2-4.0); Glomerular Filtration Rate >60 (60-); Glucose, Blood 92 mg/dL (70-99); Magnesium, Blood 1.9 mg/dL (1.6-2.4); Potassium, Blood 3.5 mmol/L (3.5-5.5); Sodium, Blood 138 mmol/L (136-145); Total Protein, Blood 6.6 g/dL (6.4-8.2)
--- NOTE | 2020-04-11 07:25 | NUR ---
POD 7 S/P NIKOLE COLECTOMY. PT VSS T/O NIGHT. BREN DRESSING INTACT W/SEAL/SX MAINTAINED. PT SARAH CL, REP MILD NAUSEA X2, NO EMESIS, PT HAD 1 LIQ BM THIS SHIFT. PT MED FOR PAIN X1, DID BECOME NAUSEOUS AFTER IV DILAUDID GIVEN. 2+ EDEMA NOTED TO BLE, LEGS ELEVATED IN BED. PT UP OOB W/SBA, SARAH WELL. PT USING CALL LIGHT FOR ASSISTANCE, REPORT GIVEN TO DAY RN.
--- NOTE | 2020-04-11 11:10 | NUR ---
SPOKE WITH THE DOCTOR ABOUT LOST IV ACCESS. PATIENT IS AWAITING NEW ACCESS BUT DOCTOR FEELS THAT IT IS APPROPRIATE TO ADVANCE THE PATIENT TOLERATED SINCE SHE IS TOLERATING PO INTAKE.
--- NOTE | 2020-04-11 12:30 | NUR ---
ASSUMED CARE OF PT.
[2020-04-12 05:11] LABS: BASOPHILS ABSOLUTE AUTO 0.04 K/mm3 (0.00-0.23); BASOPHILS PERCENT AUTO 0 % (0-2); EOSINOPHILS ABSOLUTE AUTO 0.14 K/mm3 (0.00-0.68); EOSINOPHILS PERCENT AUTO 1 % (0-6); Hemoglobin 10.3 g/dL (11.5-16.0); IMMATURE GRAN PERCENT AUTO 1 % (0-1); LYMPHOCYTES PERCENT AUTO 11 % (21-46); MONOCYTES ABSOLUTE AUTO 1.28 K/mm3 (0.16-1.47); MONOCYTES PERCENT AUTO 11 % (4-13); Mean Corpuscular HGB 31.3 pg (26.0-34.0); Mean Corpuscular HGB Conc 32.2 g/dL (31.5-36.5); Mean Corpuscular Volume 97 fL (80-100); NEUTROPHILS ABSOLUTE AUTO 8.54 K/mm3 (1.96-9.15); NEUTROPHILS PERCENT AUTO 75 % (41-73); Platelet Count 431 K/mm3 (150-400); RDW Coefficient Variation 14.3 % (11.7-14.2); RDW Standard Deviation 50.4 fL (35.1-46.3); Red Blood Cell Count 3.29 M/mm3 (3.80-5.20)
[2020-04-12 05:33] LABS: Anion Gap 8 mmol/L (6-16); Blood Urea Nitrogen 10 mg/dL (8-24); Bun/Creatinine Ratio 14.9 (12.0-20.0); CO2, Blood 26 mmol/L (21-32); Calcium, Blood 8.1 mg/dL (8.5-10.1); Chloride, Blood 104 mmol/L (98-108); Creatinine, Blood 0.67 mg/dL (0.40-1.00); Glomerular Filtration Rate >60 (60-); Glucose, Blood 103 mg/dL (70-99); Potassium, Blood 3.4 mmol/L (3.5-5.5); Sodium, Blood 138 mmol/L (136-145)
--- NOTE | 2020-04-12 06:25 | NUR ---
POD 8 S/P NIKOLE COLECTOMY. PT CONT TO STRUGGLE W/NAUSEA, HAD 2 EPISODES OF EMESIS GREEN EMESIS. BT HYPERACTIVE, PT HAVING LIQ BM. PT MED FOR PAIN X1 W/TYLENOL PER REQ. PT UP OOB W/SBA, REP FEELS WEAKER THIS AM. PT USING CALL LIGHT FOR ASSISTANCE, WILL CONT TO MONITOR UNITL REP GIVEN TO ONCOMING RN.
--- NOTE | 2020-04-12 15:24 | NUR ---
DRAINAGE DC'D BREN DRESSING PER ORDERS. UPON REMOVING, NOTED GREEN PURULENT DRAINAGE FROM INCISION. NOTIFIED DR LIND.
--- NOTE | 2020-04-12 15:51 | NUR ---
REMOVED BREN PER ORDERS AND PLACED MEDIPORE DRESSING TO MIDLINE ABD INCISION.
--- NOTE | 2020-04-12 17:32 | NUR ---
SUMMARY PT FELT NAUSEATED T/O MOST OF DAY UNTIL LATE THIS AFTERNOON. MEDICATED PER ORDERS FOR NAUSEA. PT REFUSING PO MEDS EXCEPT FOR NAUSEA AND PAIN, STATING WANTS TO GIVE STOMACH A REST. PT REPORTS FEELS MUCH BETTER THIS EVENING. AMBULATED IN DE PAZ W/FAMILY MEMBER. CALL LIGHT IN REACH.
[2020-04-13 04:17] LABS: BASOPHILS ABSOLUTE AUTO 0.05 K/mm3 (0.00-0.23); BASOPHILS PERCENT AUTO 0 % (0-2); EOSINOPHILS ABSOLUTE AUTO 0.31 K/mm3 (0.00-0.68); EOSINOPHILS PERCENT AUTO 3 % (0-6); Hematocrit 29.6 % (33.0-51.0); Hemoglobin 9.5 g/dL (11.5-16.0); IMMATURE GRAN ABSOLUTE AUTO 0.08 K/mm3 (0.00-0.10); IMMATURE GRAN PERCENT AUTO 1 % (0-1); LYMPHOCYTES ABSOLUTE AUTO 2.13 K/mm3 (0.84-5.20); LYMPHOCYTES PERCENT AUTO 19 % (21-46); MONOCYTES ABSOLUTE AUTO 1.35 K/mm3 (0.16-1.47); MONOCYTES PERCENT AUTO 12 % (4-13); Mean Corpuscular HGB 31.3 pg (26.0-34.0); Mean Corpuscular HGB Conc 32.1 g/dL (31.5-36.5); Mean Corpuscular Volume 97 fL (80-100); Mean Platelet Volume 8.9 fL (9.1-12.4); NEUTROPHILS ABSOLUTE AUTO 7.62 K/mm3 (1.96-9.15); NEUTROPHILS PERCENT AUTO 66 % (41-73); Platelet Count 443 K/mm3 (150-400); RDW Coefficient Variation 14.1 % (11.7-14.2); RDW Standard Deviation 50.3 fL (35.1-46.3); Red Blood Cell Count 3.04 M/mm3 (3.80-5.20); White Blood Cell Count 11.54 K/mm3 (4.00-11.30)
[2020-04-13 04:37] LABS: Anion Gap 8 mmol/L (6-16); Blood Urea Nitrogen 7 mg/dL (8-24); Bun/Creatinine Ratio 11.1 (12.0-20.0); CO2, Blood 25 mmol/L (21-32); Calcium, Blood 8.3 mg/dL (8.5-10.1); Chloride, Blood 103 mmol/L (98-108); Creatinine, Blood 0.63 mg/dL (0.40-1.00); Glomerular Filtration Rate >60 (60-); Glucose, Blood 82 mg/dL (70-99); Potassium, Blood 3.3 mmol/L (3.5-5.5); Sodium, Blood 136 mmol/L (136-145)
--- NOTE | 2020-04-13 06:33 | NUR ---
POD 9 S/P NIKOLE COLECTOMY. PT BP ELEVATED THIS AM, PT DENIED CP/PRESSURE. HR SINUS 90'S PER TELE MONITOR. PT HAD NO N/V, SARAH FL PO, DID HAVE 1 LARGE LIQ BM THIS AM. PT REP PAIN MINIMAL, DECLINED NEED FOR PAIN MEDS. PT STATES SHE FEELS OVERALL BETTER AND UP TO SHOWER THIS AM. PT USING CALL LIGHT FOR ASSISTANCE, WILL CONT TO MONITOR UNTIL REP GIVEN TO ONCOMING RN.
--- NOTE | 2020-04-13 09:00 | NUR ---
BP PT INFORMED OF HIGH BP. PT REFUSES TO TAKE IV HYDRALAZINE AT THIS TIME ORDERED.
--- NOTE | 2020-04-13 10:13 | NUR ---
TELE BOX RETURNED TO PCU.
--- NOTE | 2020-04-13 16:00 | NUR ---
SHIFT SUMMARY PT REPORTS FEELING BETTER THIS SHIFT. SLOWLY SARAH FULL LIQ DIET. PASSING GAS AND REPORTS HAVING A LIQ BM. PT DENIES PAIN. MIDLINE INCISION REMAINS UNCHANGED SINCE THIS AM ASSESSMENT. PT REPORTS FEELING LIKE SHE IS GETTING A "COLD" AND REPORTS HAVING THE "SNIFFLES". ROBITUSSEN PER ORDERS. INDEP IN ROOM. FAMILY AT BEDSIDE FOR SUPPORT. CALL LIGHT WITHIN REACH.
[2020-04-14 04:40] LABS: BASOPHILS ABSOLUTE AUTO 0.04 K/mm3 (0.00-0.23); BASOPHILS PERCENT AUTO 0 % (0-2); EOSINOPHILS ABSOLUTE AUTO 0.21 K/mm3 (0.00-0.68); EOSINOPHILS PERCENT AUTO 2 % (0-6); Hematocrit 31.5 % (33.0-51.0); Hemoglobin 10.1 g/dL (11.5-16.0); IMMATURE GRAN ABSOLUTE AUTO 0.11 K/mm3 (0.00-0.10); IMMATURE GRAN PERCENT AUTO 1 % (0-1); LYMPHOCYTES ABSOLUTE AUTO 2.11 K/mm3 (0.84-5.20); LYMPHOCYTES PERCENT AUTO 17 % (21-46); MONOCYTES ABSOLUTE AUTO 1.18 K/mm3 (0.16-1.47); MONOCYTES PERCENT AUTO 10 % (4-13); Mean Corpuscular HGB 31.4 pg (26.0-34.0); Mean Corpuscular HGB Conc 32.1 g/dL (31.5-36.5); Mean Corpuscular Volume 98 fL (80-100); NEUTROPHILS ABSOLUTE AUTO 8.82 K/mm3 (1.96-9.15); NEUTROPHILS PERCENT AUTO 71 % (41-73); RDW Coefficient Variation 14.3 % (11.7-14.2); RDW Standard Deviation 51.2 fL (35.1-46.3); Red Blood Cell Count 3.22 M/mm3 (3.80-5.20); White Blood Cell Count 12.47 K/mm3 (4.00-11.30)
[2020-04-14 04:46] LABS: Mean Platelet Volume 10.1 fL (9.1-12.4); Platelet Count 327 K/mm3 (150-400)
[2020-04-14 04:54] LABS: Anion Gap 10 mmol/L (6-16); Blood Urea Nitrogen 8 mg/dL (8-24); Bun/Creatinine Ratio 12.4 (12.0-20.0); CO2, Blood 23 mmol/L (21-32); Calcium, Blood 8.2 mg/dL (8.5-10.1); Chloride, Blood 104 mmol/L (98-108); Creatinine, Blood 0.65 mg/dL (0.40-1.00); Glomerular Filtration Rate >60 (60-); Glucose, Blood 92 mg/dL (70-99); Potassium, Blood 3.5 mmol/L (3.5-5.5); Sodium, Blood 137 mmol/L (136-145)
--- NOTE | 2020-04-14 06:23 | NUR ---
SHIFT SUMMARY: "ZAFAR" IS A&OX4. TOLERATING PO INTAKE WELL. VSS, NO ACUTE EVENTS OVERNIGHT. SHE IS INDEPENDENT TO THE BATHROOM. MIDLINE INCISION WITH MEDIPORE, C/D&I. SHE HAS COMPLAINED OF SINUS CONGESTION FOR WHICH SHE STATES THE ROBITUSSIN IS EFFECTIVE. SHE DENIES PAIN. SHE IS LYING IN BED WITH HER CALL LIGHT IN REACH. WILL REPORT TO DAY SHIFT RN.
--- NOTE | 2020-04-14 15:57 | NUR ---
SHIFT SUMMARY NO ACUTE CHANGES TODAY. PT CONT TO DENY PAIN. SARAH FULL LIQ DIET AND ADVANCING TO REG DIET AT DINNER. PASSING FLATUS AND HAVING OCCASSIONAL LIQ BMS. INDEP IN THE ROOM. MIDLINE INCISION OPEN TO AIR AND TOD ARE CDI. PLAN IS TO DISCHARGE HOME TOMORROW. PT USES CALL LIGHT APPROPRIATELY.
--- NOTE | 2020-04-14 20:28 | NUR ---
PT REPORTED "NOT FEELING WELL". AFTER ANSWERING MULTIPLE QUESTIONS TO DISCOVER HER SYMPTOMS, ZAFAR STATED THAT SHE WAS NAUSEATED AND "SCARED". SHE REPORTED THAT SHE HAD BEEN TOLD THAT SHE HAS AN INFECTION BUT WAS NOT TOLD WHERE OR WHAT THE CAUSE OF THE INFECTION WAS. SHE ALSO STATED THAT HER HAD CALLED MULTIPLE TIMES ASKING WHERE THE INFECTION WAS. SHE STATED THAT SHE DID NOT DISCHARGE HOME TODAY PLANNED D/T THE INFECTION. LAB RESULTS REVIEWED WITH ZAFAR. HOME MEDICATIONS DISCUSSED. REASSURANCE PROVIDED. ZAFAR REPORTED RELIEF FROM THE NAUSEA WITH PO ZOFRAN AND WOULD LIKE A HOME PRESCRIPTION. SHE REPORTED RELIEF FROM THE ANXIETY SYMPTOMS AFTER EXPRESSING HER FEARS.
[2020-04-15 04:10] LABS: BASOPHILS ABSOLUTE AUTO 0.05 K/mm3 (0.00-0.23); BASOPHILS PERCENT AUTO 0 % (0-2); EOSINOPHILS ABSOLUTE AUTO 0.25 K/mm3 (0.00-0.68); EOSINOPHILS PERCENT AUTO 2 % (0-6); Hematocrit 30.7 % (33.0-51.0); Hemoglobin 9.9 g/dL (11.5-16.0); IMMATURE GRAN ABSOLUTE AUTO 0.11 K/mm3 (0.00-0.10); IMMATURE GRAN PERCENT AUTO 1 % (0-1); LYMPHOCYTES ABSOLUTE AUTO 1.84 K/mm3 (0.84-5.20); LYMPHOCYTES PERCENT AUTO 16 % (21-46); MONOCYTES ABSOLUTE AUTO 1.15 K/mm3 (0.16-1.47); MONOCYTES PERCENT AUTO 10 % (4-13); Mean Corpuscular HGB 31.5 pg (26.0-34.0); Mean Corpuscular HGB Conc 32.2 g/dL (31.5-36.5); Mean Corpuscular Volume 98 fL (80-100); NEUTROPHILS ABSOLUTE AUTO 7.97 K/mm3 (1.96-9.15); NEUTROPHILS PERCENT AUTO 70 % (41-73); RDW Coefficient Variation 14.6 % (11.7-14.2); RDW Standard Deviation 52.1 fL (35.1-46.3); Red Blood Cell Count 3.14 M/mm3 (3.80-5.20); White Blood Cell Count 11.37 K/mm3 (4.00-11.30)
[2020-04-15 04:12] LABS: Mean Platelet Volume 9.6 fL (9.1-12.4); Platelet Count 374 K/mm3 (150-400)
[2020-04-15 04:26] LABS: Anion Gap 9 mmol/L (6-16); Blood Urea Nitrogen 11 mg/dL (8-24); Bun/Creatinine Ratio 16.4 (12.0-20.0); CO2, Blood 23 mmol/L (21-32); Calcium, Blood 7.8 mg/dL (8.5-10.1); Chloride, Blood 105 mmol/L (98-108); Creatinine, Blood 0.67 mg/dL (0.40-1.00); Glomerular Filtration Rate >60 (60-); Glucose, Blood 104 mg/dL (70-99); Potassium, Blood 3.5 mmol/L (3.5-5.5); Sodium, Blood 137 mmol/L (136-145)
--- NOTE | 2020-04-15 04:48 | NUR ---
SHIFT SUMMARY: "ZAFAR" IS A&OX4. SHE HAS RESTED INTERMITTENTLY THIS SHIFT AFTER ADMINISTRATION OF ZOFRAN FOR THE NAUSEA, WHICH SHE STATES WAS EFFECTIVE. BP IMPROVED AFTER ADMINISTRATION OF CLONIDINE. VSS, NO ACUTE EVENTS OVERNIGHT. SHE IS ABLE TO MAKE HER NEEDS KNOWN. MIDLINE INCISION FILLER SHAKER. SHE IS TOLERATING PO INTAKE WELL. SHE IS INDEPENDENT TO THE BATHROOM, NO DIFFICULTIES W/URINATION. SHE REPORTS PASSING FLATUS AND STOOL. WBC 11.37 THIS AM. SHE IS LYING IN BED WITH THE CALL LIGHT IN REACH. WILL REPORT TO DAY SHIFT RN.
--- NOTE | 2020-04-15 07:34 | NUR ---
pt watching tv reports min pain / pt stated that she had some gas pain last night but it went away after she passed a bunch of gas pain is ruq abd
[2020-04-15] MEDS ORDERED: Percocet 5-3251 EACH PO (09:08)
[2020-04-15] MEDS ORDERED: ACET325 PO (09:19)
[2020-04-15] MEDS ORDERED: CEPACOL SORE T1 EAC4 PO (09:19)
[2020-04-15] MEDS ORDERED: CLON.1 PO (09:20)
[2020-04-15] MEDS ORDERED: ROBITUSSIN COU237 M3 PO (09:21)
[2020-04-15] MEDS ORDERED: HYDR10 PO (09:22)
--- NOTE | 2020-04-15 09:22 | NUR ---
istrate by to see pt ok to discharge home
[2020-04-15] MEDS ORDERED: ONDA4ODT PO (09:23)
[2020-04-15] MEDS ORDERED: POTA20PAC PO (09:24)
--- NOTE | 2020-04-15 09:55 | NUR ---
DISCHARGE INST REVIEWED WITH PT SHE ALSO WANTS ME TO REVIEW WITH HER WHEN HE COMES ALSO RE DIET INFO HANDOUT GIVEN
--- NOTE | 2020-04-15 10:55 | NUR ---
WC ESCORT TO CAR NO ACUTE CHANGES
[2020-04-25] MEDS ORDERED: FOLI1 PO (16:13)
[2020-04-25] MEDS ORDERED: Diltiazem ER180 M1 PO (16:14)
[2020-04-25] MEDS ORDERED: MYRBETRIQ50 MG PO (16:14)
[2020-04-25] MEDS ORDERED: BREO ELLIPTA 11 EAC1 INH (16:14)
[2020-04-25] MEDS ORDERED: INFLECTRA100 MG IV (16:21)
[2020-04-25] MEDS ORDERED: OMEP20ER PO (22:29)
[2020-04-25] MEDS ORDERED: FLUC150A PO (22:31)
== END 2020-04-15 10:56 | disposition home or self-care (01) | DRG 329 ==
LOC: ER 22:37 → SURS 04-04 02:00 → ICUE 04-04 06:33 → SURS 04-04 08:17
PROVIDERS: Emergency Medicine; Family Medicine; Internal Medicine; Surgery; ADMIT Internal Medicine
PROC: 0DTF0ZZ Resection of Right Large Intestine, Open Approach (ICD-10-PCS; principal; 2020-04-04 05:00)
DX: K56.2 Volvulus (principal); A41.9 Sepsis, unspecified organism; N17.9 Acute kidney failure, unspecified; R65.10 Systemic inflammatory response syndrome (SIRS) of non-infectious origin without acute organ dysfunction; N39.0 Urinary tract infection, site not specified; M06.9 Rheumatoid arthritis, unspecified; I73.00 Raynaud's syndrome without gangrene; E87.6 Hypokalemia; I10 Essential (primary) hypertension; E83.39 Other disorders of phosphorus metabolism
CPT/HCPCS: 36415; 71045; 74018; 74177; 80048; 80053; 81001; 81003; 83690; 83735; 84100; 84484; 85025; 87040; 87086; 88307; 93005; 93010; 94640; 94760; 96361; 96374-59; 96375; 99285-25; A9270; A9270-GY; C9113; J0360; J0780; J1100; J1170; J1885; J1940; J2370; J2405; J2543; J2550; J2704; J2765; J3010; J7030; J7050; J7060; J7120; Q9967; U0002

== ENCOUNTER 2020-07-11 00:11 | Day surgery (SDC) | payer MEDICARE, BC ==
[~2020-07-11 00:11] MED LIST changes: +ACET325 PO; +BREO ELLIPTA 11 EAC1 INH; +CEPACOL SORE T1 EAC4 PO; +CLON.1 PO; +Diltiazem ER180 M1 PO; +FLUC150A PO; +FOLI1 PO; +HYDR10 PO; +MYRBETRIQ50 MG PO; +ONDA4ODT PO; +POTA20PAC PO; +Percocet 5-3251 EACH PO; +ROBITUSSIN COU237 M3 PO
[2020-07-11 09:47] LABS: BASOPHILS ABSOLUTE AUTO 0.07 K/mm3 (0.00-0.23); BASOPHILS PERCENT AUTO 1 % (0-2); EOSINOPHILS ABSOLUTE AUTO 0.36 K/mm3 (0.00-0.68); EOSINOPHILS PERCENT AUTO 5 % (0-6); Hematocrit 37.4 % (33.0-51.0); IMMATURE GRAN ABSOLUTE AUTO 0.01 K/mm3 (0.00-0.10); IMMATURE GRAN PERCENT AUTO 0 % (0-1); LYMPHOCYTES ABSOLUTE AUTO 1.98 K/mm3 (0.84-5.20); LYMPHOCYTES PERCENT AUTO 25 % (21-46); MONOCYTES ABSOLUTE AUTO 0.79 K/mm3 (0.16-1.47); MONOCYTES PERCENT AUTO 10 % (4-13); Mean Corpuscular HGB 31.3 pg (26.0-34.0); Mean Corpuscular HGB Conc 32.1 g/dL (31.5-36.5); Mean Corpuscular Volume 97 fL (80-100); Mean Platelet Volume 10.1 fL (9.1-12.4); NEUTROPHILS ABSOLUTE AUTO 4.64 K/mm3 (1.96-9.15); NEUTROPHILS PERCENT AUTO 59 % (41-73); Platelet Count 295 K/mm3 (150-400); RDW Coefficient Variation 16.9 % (11.7-14.2); RDW Standard Deviation 60.3 fL (35.1-46.3); Red Blood Cell Count 3.84 M/mm3 (3.80-5.20); White Blood Cell Count 7.85 K/mm3 (4.00-11.30)
[2020-07-11 10:02] LABS: Alanine Aminotransfer (ALT/SGP 14 U/L (12-78); Albumin, Blood 3.4 g/dL (3.4-5.0); Albumin/Globulin Ratio 0.7 (0.8-1.8); Alk Phos 81 U/L (50-136); Anion Gap 6 mmol/L (6-16); Aspartate Aminotrans (AST/SGOT 16 U/L (12-37); Bilirubin, Total 0.3 mg/dL (0.1-1.0); Blood Urea Nitrogen 29 mg/dL (8-24); Bun/Creatinine Ratio 34.5 (12.0-20.0); CO2, Blood 24 mmol/L (21-32); Calcium, Blood 9.9 mg/dL (8.5-10.1); Chloride, Blood 108 mmol/L (98-108); Creatinine, Blood 0.84 mg/dL (0.40-1.00); Globulin, Blood 5.1 g/dL (2.2-4.0); Glomerular Filtration Rate >60 (60-); Glucose, Blood 77 mg/dL (70-99); Potassium, Blood 4.3 mmol/L (3.5-5.5); Sodium, Blood 138 mmol/L (136-145); Total Protein, Blood 8.5 g/dL (6.4-8.2)
== END 2020-07-11 11:46 | disposition home or self-care (01) ==
LOC: ATC 00:11
PROVIDERS: Family Medicine
DX: M06.9 Rheumatoid arthritis, unspecified (principal); B35.1 Tinea unguium; L84 Corns and callosities; I70.209 Unspecified atherosclerosis of native arteries of extremities, unspecified extremity; M20.40 Other hammer toe(s) (acquired), unspecified foot; Z87.891 Personal history of nicotine dependence; Z79.899 Other long term (current) drug therapy
CPT/HCPCS: 80053; 85025; 96413; 96415; J7050; Q5103

== ENCOUNTER 2020-09-05 00:19 | Day surgery (SDC) | payer MEDICARE, BC ==
[2020-09-05] MEDS ORDERED: CYAN500 PO (09:30)
[2020-09-05] MEDS ORDERED: TOCO1000 PO (09:30)
[2020-09-05 10:19] LABS: BASOPHILS ABSOLUTE AUTO 0.09 K/mm3 (0.00-0.23); BASOPHILS PERCENT AUTO 1 % (0-2); EOSINOPHILS ABSOLUTE AUTO 0.51 K/mm3 (0.00-0.68); EOSINOPHILS PERCENT AUTO 7 % (0-6); Hematocrit 38.9 % (33.0-51.0); Hemoglobin 12.6 g/dL (11.5-16.0); IMMATURE GRAN ABSOLUTE AUTO 0.01 K/mm3 (0.00-0.10); IMMATURE GRAN PERCENT AUTO 0 % (0-1); LYMPHOCYTES ABSOLUTE AUTO 2.31 K/mm3 (0.84-5.20); LYMPHOCYTES PERCENT AUTO 30 % (21-46); MONOCYTES ABSOLUTE AUTO 0.93 K/mm3 (0.16-1.47); MONOCYTES PERCENT AUTO 12 % (4-13); Mean Corpuscular HGB 32.1 pg (26.0-34.0); Mean Corpuscular HGB Conc 32.4 g/dL (31.5-36.5); Mean Corpuscular Volume 99 fL (80-100); NEUTROPHILS ABSOLUTE AUTO 3.87 K/mm3 (1.96-9.15); NEUTROPHILS PERCENT AUTO 50 % (41-73); Platelet Count 295 K/mm3 (150-400); RDW Coefficient Variation 14.8 % (11.7-14.2); RDW Standard Deviation 53.5 fL (35.1-46.3); Red Blood Cell Count 3.93 M/mm3 (3.80-5.20); White Blood Cell Count 7.72 K/mm3 (4.00-11.30)
[2020-09-05 10:48] LABS: Alanine Aminotransfer (ALT/SGP 14 U/L (12-78); Albumin, Blood 3.2 g/dL (3.4-5.0); Albumin/Globulin Ratio 0.7 (0.8-1.8); Alk Phos 72 U/L (50-136); Anion Gap 5 mmol/L (6-16); Aspartate Aminotrans (AST/SGOT 21 U/L (12-37); Bilirubin, Total 0.3 mg/dL (0.1-1.0); Blood Urea Nitrogen 26 mg/dL (8-24); Bun/Creatinine Ratio 31.4 (12.0-20.0); CO2, Blood 26 mmol/L (21-32); Chloride, Blood 109 mmol/L (98-108); Creatinine, Blood 0.83 mg/dL (0.40-1.00); Globulin, Blood 4.5 g/dL (2.2-4.0); Glomerular Filtration Rate >60 (60-); Glucose, Blood 79 mg/dL (70-99); Potassium, Blood 4.1 mmol/L (3.5-5.5); Sodium, Blood 140 mmol/L (136-145); Total Protein, Blood 7.7 g/dL (6.4-8.2)
== END 2020-09-05 12:20 | disposition home or self-care (01) ==
LOC: ATC 00:19
PROVIDERS: Family Medicine
DX: M06.9 Rheumatoid arthritis, unspecified (principal); I10 Essential (primary) hypertension; Z88.1 Allergy status to other antibiotic agents; Z88.2 Allergy status to sulfonamides; Z88.5 Allergy status to narcotic agent; Z88.8 Allergy status to other drugs, medicaments and biological substances; Z79.51 Long term (current) use of inhaled steroids; Z79.82 Long term (current) use of aspirin; Z79.899 Other long term (current) drug therapy
CPT/HCPCS: 80053; 85025; 96413; 96415; J7050; Q5103

== ENCOUNTER 2020-10-05 09:53 | Inpatient (IN) | payer MEDICARE, BC ==
[~2020-10-05] VITALS: Ht 160 cm; Wt 59.0 kg
[~2020-10-05 09:53] MED LIST changes: -ALBU3IS INH; -Aspirin EC81 MG PO; -BREO ELLIPTA 11 EAC1 INH; -Diltiazem ER180 M1 PO; -FOLI1 PO; -METTREX2.5 PO
[2020-10-05 10:31] LABS: BASOPHILS ABSOLUTE AUTO 0.07 K/mm3 (0.00-0.23); BASOPHILS PERCENT AUTO 1 % (0-2); EOSINOPHILS ABSOLUTE AUTO 0.08 K/mm3 (0.00-0.68); EOSINOPHILS PERCENT AUTO 1 % (0-6); Hematocrit 40.9 % (33.0-51.0); Hemoglobin 13.5 g/dL (11.5-16.0); IMMATURE GRAN ABSOLUTE AUTO 0.05 K/mm3 (0.00-0.10); IMMATURE GRAN PERCENT AUTO 0 % (0-1); LYMPHOCYTES ABSOLUTE AUTO 2.78 K/mm3 (0.84-5.20); LYMPHOCYTES PERCENT AUTO 23 % (21-46); MONOCYTES ABSOLUTE AUTO 0.61 K/mm3 (0.16-1.47); MONOCYTES PERCENT AUTO 5 % (4-13); Mean Corpuscular HGB 32.2 pg (26.0-34.0); Mean Corpuscular Volume 98 fL (80-100); Mean Platelet Volume 9.3 fL (9.1-12.4); NEUTROPHILS ABSOLUTE AUTO 8.52 K/mm3 (1.96-9.15); NEUTROPHILS PERCENT AUTO 70 % (41-73); Platelet Count 275 K/mm3 (150-400); RDW Coefficient Variation 15.3 % (11.7-14.2); RDW Standard Deviation 54.3 fL (35.1-46.3); Red Blood Cell Count 4.19 M/mm3 (3.80-5.20); White Blood Cell Count 12.11 K/mm3 (4.00-11.30)
[2020-10-05 10:49] LABS: Alanine Aminotransfer (ALT/SGP 16 U/L (12-78); Albumin, Blood 3.5 g/dL (3.4-5.0); Albumin/Globulin Ratio 0.8 (0.8-1.8); Alk Phos 87 U/L (50-136); Anion Gap 11 mmol/L (6-16); Aspartate Aminotrans (AST/SGOT 21 U/L (12-37); Bilirubin, Total 0.4 mg/dL (0.1-1.0); Blood Urea Nitrogen 27 mg/dL (8-24); Bun/Creatinine Ratio 33.5 (12.0-20.0); CO2, Blood 22 mmol/L (21-32); Calcium, Blood 9.7 mg/dL (8.5-10.1); Chloride, Blood 107 mmol/L (98-108); Creatinine, Blood 0.81 mg/dL (0.40-1.00); Globulin, Blood 4.5 g/dL (2.2-4.0); Glomerular Filtration Rate >60 (60-); Glucose, Blood 164 mg/dL (70-99); Potassium, Blood 3.9 mmol/L (3.5-5.5); Sodium, Blood 140 mmol/L (136-145)
--- NOTE | 2020-10-05 12:39 | NUR ---
PATIENT WAS BROGHT TO D/S FOR HER PROCEDURE. TOOK OVER PATIENT CARE AFTER REPORT WAS RECEIVED.Surgical site prepped with 2% Chlorhexidine cloth wipe. Lungs clear T/O to Auscultation. Patient confirms NPO status and agrees with scheduled surgery. Pre-Op teaching done. Pt verbalizes understanding. Patient States Post-Procedure ride home has been arranged.
[2020-10-05 12:43] LABS: Influenza A, PCR Negative (NEGATIVE); Influenza B, PCR Negative (NEGATIVE); Resp Syncytial Virus, PCR Negative (NEGATIVE); SARS-Cov-2 (COVID-19) PCR, MMC Negative (NEGATIVE)
[2020-10-05] MEDS ORDERED: Diltiazem ER180 M1 PO (13:06)
[2020-10-05] MEDS ORDERED: OMEP20ER PO (13:06)
[2020-10-05] MEDS ORDERED: METTREX2.5 PO (13:07)
[2020-10-05] MEDS ORDERED: FOLI1 PO (13:07)
[2020-10-05] MEDS ORDERED: TOCO1000 PO (13:09)
[2020-10-05] MEDS ORDERED: Aspirin EC81 MG PO (13:09)
[2020-10-05] MEDS ORDERED: CYAN500 PO (13:09)
[2020-10-05] MEDS ORDERED: ALBU90OI INH (13:10)
[2020-10-05] MEDS ORDERED: BREO ELLIPTA 11 EAC1 INH (13:10)
--- NOTE | 2020-10-05 15:30 | NUR ---
pt arrived to room 228 from pacu pt is s/p small bowel resection pt has midline alba dressing with multiple small sang spots marked per pacu nurse pt reports pain 3/10 pt shivering additional blankets placed also called and left a message on pts spouse cell number oriented to room
[2020-10-05] MEDS ORDERED: ASPI325EC PO (17:16)
--- NOTE | 2020-10-05 17:30 | NUR ---
PT SLEEPING WAKES TO VERBAL STIMULI OFFERED PAIN MEDS PT DECLINED ALSO OFFERED CL DIET PT ALSO DECLINED PT TAKING IN ICE CHIPS AT THIS TIME
[2020-10-06 04:44] LABS: BASOPHILS ABSOLUTE AUTO 0.03 K/mm3 (0.00-0.23); BASOPHILS PERCENT AUTO 0 % (0-2); EOSINOPHILS PERCENT AUTO 0 % (0-6); Hematocrit 36.3 % (33.0-51.0); Hemoglobin 11.7 g/dL (11.5-16.0); IMMATURE GRAN ABSOLUTE AUTO 0.08 K/mm3 (0.00-0.10); IMMATURE GRAN PERCENT AUTO 1 % (0-1); LYMPHOCYTES ABSOLUTE AUTO 1.06 K/mm3 (0.84-5.20); LYMPHOCYTES PERCENT AUTO 6 % (21-46); MONOCYTES ABSOLUTE AUTO 1.47 K/mm3 (0.16-1.47); MONOCYTES PERCENT AUTO 9 % (4-13); Mean Corpuscular HGB 32.1 pg (26.0-34.0); Mean Corpuscular HGB Conc 32.2 g/dL (31.5-36.5); Mean Corpuscular Volume 100 fL (80-100); Mean Platelet Volume 9.6 fL (9.1-12.4); NEUTROPHILS ABSOLUTE AUTO 14.68 K/mm3 (1.96-9.15); NEUTROPHILS PERCENT AUTO 85 % (41-73); Platelet Count 240 K/mm3 (150-400); RDW Coefficient Variation 15.6 % (11.7-14.2); RDW Standard Deviation 56.3 fL (35.1-46.3); Red Blood Cell Count 3.65 M/mm3 (3.80-5.20); White Blood Cell Count 17.32 K/mm3 (4.00-11.30)
[2020-10-06 05:04] LABS: Anion Gap 7 mmol/L (6-16); Blood Urea Nitrogen 37 mg/dL (8-24); Bun/Creatinine Ratio 42.8 (12.0-20.0); CO2, Blood 24 mmol/L (21-32); Calcium, Blood 7.8 mg/dL (8.5-10.1); Chloride, Blood 111 mmol/L (98-108); Creatinine, Blood 0.87 mg/dL (0.40-1.00); Glomerular Filtration Rate >60 (60-); Glucose, Blood 123 mg/dL (70-99); Sodium, Blood 142 mmol/L (136-145)
--- NOTE | 2020-10-06 07:29 | NUR ---
POD 1 S/P EX LAP W/RESECTION. PT VSS T/O NIGHT; SATS >90% ON RA. BREN DRESSING W/MOD AMT SANG DRNG, SEAL AND SX INTACT. ABD SOFT, MILDLY DISTENDED, BT HYPO. PT SARAH CL PO, NO N/V, NO FLATUS YET. PT UP OOB W/FWW+SBA, DENIES DIZZINESS WHEN UP. NEW PAIN MED ORDERS REC THIS AM; PT REP BETTER RELIEF W/0.5MG IV DILAUDID.
--- NOTE | 2020-10-06 11:08 | NUR ---
DR CHAVARRIA IN TO SEE PT.
--- NOTE | 2020-10-06 17:07 | NUR ---
SUMMARY NO ACUTE CHANGES THIS SHIFT. PT TOLERATING CLEAR LIQUIDS. MEDICATED PER ORDERS FOR PAIN. SAT UP IN CHAIR TWICE DURING SHIFT AND AMBULATED TO RESTROOM. DENIES ANY NEEDS AT THIS TIME. CALL LIGHT IN REACH.
[2020-10-07 04:37] LABS: BASOPHILS ABSOLUTE AUTO 0.03 K/mm3 (0.00-0.23); BASOPHILS PERCENT AUTO 0 % (0-2); EOSINOPHILS ABSOLUTE AUTO 0.06 K/mm3 (0.00-0.68); EOSINOPHILS PERCENT AUTO 1 % (0-6); Hemoglobin 9.2 g/dL (11.5-16.0); IMMATURE GRAN ABSOLUTE AUTO 0.03 K/mm3 (0.00-0.10); IMMATURE GRAN PERCENT AUTO 0 % (0-1); LYMPHOCYTES ABSOLUTE AUTO 1.27 K/mm3 (0.84-5.20); LYMPHOCYTES PERCENT AUTO 11 % (21-46); MONOCYTES ABSOLUTE AUTO 0.34 K/mm3 (0.16-1.47); MONOCYTES PERCENT AUTO 3 % (4-13); Mean Corpuscular HGB 32.7 pg (26.0-34.0); Mean Corpuscular HGB Conc 32.9 g/dL (31.5-36.5); Mean Corpuscular Volume 100 fL (80-100); Mean Platelet Volume 9.8 fL (9.1-12.4); NEUTROPHILS ABSOLUTE AUTO 10.24 K/mm3 (1.96-9.15); NEUTROPHILS PERCENT AUTO 86 % (41-73); Platelet Count 172 K/mm3 (150-400); RDW Coefficient Variation 15.5 % (11.7-14.2); RDW Standard Deviation 55.8 fL (35.1-46.3); Red Blood Cell Count 2.81 M/mm3 (3.80-5.20); White Blood Cell Count 11.97 K/mm3 (4.00-11.30)
[2020-10-07 04:56] LABS: Albumin, Blood 2.1 g/dL (3.4-5.0); Anion Gap 7 mmol/L (6-16); Blood Urea Nitrogen 26 mg/dL (8-24); Bun/Creatinine Ratio 36.5 (12.0-20.0); CO2, Blood 21 mmol/L (21-32); Chloride, Blood 113 mmol/L (98-108); Creatinine, Blood 0.71 mg/dL (0.40-1.00); Glomerular Filtration Rate >60 (60-); Glucose, Blood 83 mg/dL (70-99); Phosphorus, Blood 2.3 mg/dL (2.5-4.9); Potassium, Blood 3.6 mmol/L (3.5-5.5); Sodium, Blood 141 mmol/L (136-145)
--- NOTE | 2020-10-07 06:19 | NUR ---
POD 2 S/P EX LAP W/RESECTION. DRESSINGS CDI. PT SARHA CL PO, NO N/V, BT HYPO, PT REP NO FLATUS YET. PT VOIDING URINE W/O DIFFICULTY. PT UP OOB W/FWW, INDEP AT TIMES, SBA PRN. LUNGS CLEAR, SATS >90% ON RA, PT USING I/S AT BEDSIDE. PT C/O HEADACHE, STATES RESOLVED W/TYLENOL. ABD PAIN MGD W/TORADOL AND 0.5MG IV DILAUDID W/REP RELIEF. SIPS OF WATER ENC. IVF CONT PER ORDERS.
--- NOTE | 2020-10-07 16:36 | NUR ---
SHIFT SUMMARY POD2 FOR EXP LAP W/ RESECTION. ABD BREN DRESSING CDI AND COMPRESSED W/ MEDIUM DRY DRAINAGE. PT SARAH CLEAR DIET DENIES N/V. PT DENIES PASSING FLAUTS TODAY. SHE ALSO DENIES BM AND DENIES PROBLEMS URINATING. PT SBA TOLERATING AMBULATION TO BATHROOM. PT REPORTS H/A AND ABD PAIN. PAIN MANAGED W/ TORADOL AND TYLENOL. PAIN HAS IMPROVED THIS AFTERNOON. IV ON L FOREARM STILL INFUSING FLUIDS. ENC USE OF I/S, DEEP BREATHING EXERC AND AMBULATION. CALL LIGHT W/IN REACH. PT NAPPING ON HER BED.
--- NOTE | 2020-10-07 17:09 | NUR ---
PT GOT UP IN THE BATHROOM W/ REPEATER OPERATOR. SHE REPORTS NAUSEA AND STARTED VOMITING LIGHT GREEN. PT DENIES DIZZINESS, CP/PRESSURE AND N/T. ADMINISTERED ZOFRAN VIA IV. PT GOT BACK IN BED AND NAUSEA HAS IMPROVED.
--- NOTE | 2020-10-07 22:22 | NUR ---
PATIENT UP TO BR WITH SBA DUE TO IV FLUIDS. PATIENT IS TAKING PO FLUIDS WELL. NO FURTHER NAUSEA OR VOMITING SINCE DAY SHIFT EPISODE. MIDLINE BREN DRESSING IS OVER HALF SATURATED WITH DRAINAGE, DRESSING IS COMPRESSED, NO LEAKAGE AROUND DRESSING. WILL CONTINUE TO MONITOR AND CHANGE NEEDED. CALL LIGHT IN REACH. NO COMPLAINTS OF PAIN.
--- NOTE | 2020-10-08 05:27 | NUR ---
AT APPROX 0430 PATIENT BEGAN TO COMPLAIN OF EPIGASTRIC PAIN/PRESSURE AND SLIGHT NAUSEA. 10 MIN LATER PATIENT HAD VOMITED 350CC OF GREEN FLUID, EPIGASTRIC PRESSURE DECREASED, ZOFRAN IV GIVEN FOR NAUSEA. PATIENT STATED THAT SHE HAS NOT SLEPT TONIGHT BECAUSE SHE SLEPT MOST OF THE DAY. WILL CONTINUE TO MONITOR FOR NAUSEA AND PAIN. CALL LIGHT IN REACH.
[2020-10-08 06:12] LABS: Hematocrit 31.7 % (33.0-51.0); Hemoglobin 10.1 g/dL (11.5-16.0); Mean Corpuscular HGB 32.2 pg (26.0-34.0); Mean Corpuscular HGB Conc 31.9 g/dL (31.5-36.5); Mean Corpuscular Volume 101 fL (80-100); Mean Platelet Volume 10.1 fL (9.1-12.4); Platelet Count 216 K/mm3 (150-400); RDW Coefficient Variation 15.2 % (11.7-14.2); RDW Standard Deviation 55.8 fL (35.1-46.3); Red Blood Cell Count 3.14 M/mm3 (3.80-5.20); White Blood Cell Count 5.45 K/mm3 (4.00-11.30)
[2020-10-08 06:37] LABS: BAND PERCENT MAN 1 % (0-8); BASOPHILS ABSOLUTE MAN 0.05 K/mm3 (0.00-0.23); BASOPHILS PERCENT MAN 1 % (0-2); EOSINOPHILS ABSOLUTE MAN 0.05 K/mm3 (0.00-0.68); EOSINOPHILS PERCENT MAN 1 % (0-6); LYMPHOCYTES ABSOLUTE MAN 0.87 K/mm3 (0.84-5.20); LYMPHOCYTES PERCENT MAN 16 % (21-46); MONOCYTES ABSOLUTE MAN 0.16 K/mm3 (0.16-1.47); MONOCYTES PERCENT MAN 3 % (4-13); SEG NEUTROPHILS PERCENT MAN 78 % (41-73); TOTAL CELLS COUNTED 100
[2020-10-08 06:39] LABS: Albumin, Blood 2.2 g/dL (3.4-5.0); Anion Gap 12 mmol/L (6-16); Blood Urea Nitrogen 17 mg/dL (8-24); Bun/Creatinine Ratio 24.5 (12.0-20.0); CO2, Blood 19 mmol/L (21-32); Calcium, Blood 8.3 mg/dL (8.5-10.1); Chloride, Blood 109 mmol/L (98-108); Creatinine, Blood 0.69 mg/dL (0.40-1.00); Glomerular Filtration Rate >60 (60-); Glucose, Blood 75 mg/dL (70-99); Magnesium, Blood 2.1 mg/dL (1.6-2.4); Phosphorus, Blood 2.5 mg/dL (2.5-4.9); Potassium, Blood 3.2 mmol/L (3.5-5.5); Sodium, Blood 140 mmol/L (136-145)
--- NOTE | 2020-10-08 15:46 | NUR ---
SHIFT SUMMARY AOX3. VSS. PT ON TELE AT [place] WITH PAC IN THE MORNING. PT IS ASYMPTOMATIC DENIES CHEST PAIN/PRESSURE, SOB AND N/T. TOLERATING CLEAR LIQUID DIET, DENIES NAUSEA AND VOMITING. PT HAD 5 LOOSE BM TODAY AND HAS REPORTS FEELING PASSING GAS BUT UNSURE. IV ON LEFT FOREARM AND LEFT HAND WAS DC'D, PT C/O OF BURNING AND THE L HAND WAS NOT PATENT. NEW IV PLACED BY [place] (ATC NURSE) ON L HAND W/ 24 GAUGE. POTASSIUM PHOS IS STILL INFUSING W/ NS. PT DENIES PAIN. BREN DRESSING INTACT AND COMPRESSED, MED DRY BLOOD DRAINAGE UNCHANGED. CALL LIGHT W/IN REACH.
--- NOTE | 2020-10-08 17:41 | NUR ---
PT REPORTS NO APPETITE, DENIES DINNER TRAY. SHE ALSO DENIES NAUSEA AND APPEARS COMFORTABLE IN BED, WITH NO PAIN.
--- NOTE | 2020-10-08 21:58 | NUR ---
PATIENT HAS HAD SEVERAL LIQUID STOOLS TODAY AND REQUESTED THAT HER STOOL SOFTENERS WERE NO GIVEN TONIGHT. [place] [facility] [place]RENTLY RESTING QUIETLY IN BED WATCHING TV. DENIES NAUSEA AND NO FURTHER VOMITING SINCE EARLY THIS MORNING. IV IS INFUSING AT 100CC/HOUR. DRINKING FLUIDS WELL. CALL LIGHT IN REACH.
--- NOTE | 2020-10-09 04:38 | NUR ---
PATIENT WAS AWAKE MOST OF THE NIGHT READING. NO COMPLAINTS OF NAUSEA OR PAIN. SHE HAD BEEN UP TO [facility] [place] TO VOID AND HAVE LIQUID STOOL. TELEMETRY HAS SHOWN A STABLE SR/ST WITH PAC'S. MIDLINE BREN DRESSING WITH NO NEW DRAINAGE, AND IS COMPRESSED. NO ACUTE CHANGES, CALL LIGHT IN REACH.
[2020-10-09 09:11] LABS: BASOPHILS ABSOLUTE AUTO 0.01 K/mm3 (0.00-0.23); BASOPHILS PERCENT AUTO 0 % (0-2); EOSINOPHILS PERCENT AUTO 2 % (0-6); Hemoglobin 9.6 g/dL (11.5-16.0); IMMATURE GRAN ABSOLUTE AUTO 0.01 K/mm3 (0.00-0.10); IMMATURE GRAN PERCENT AUTO 0 % (0-1); LYMPHOCYTES ABSOLUTE AUTO 1.01 K/mm3 (0.84-5.20); LYMPHOCYTES PERCENT AUTO 21 % (21-46); MONOCYTES PERCENT AUTO 8 % (4-13); Mean Corpuscular HGB 32.4 pg (26.0-34.0); Mean Corpuscular HGB Conc 33.1 g/dL (31.5-36.5); Mean Corpuscular Volume 98 fL (80-100); Mean Platelet Volume 9.2 fL (9.1-12.4); NEUTROPHILS ABSOLUTE AUTO 3.32 K/mm3 (1.96-9.15); NEUTROPHILS PERCENT AUTO 69 % (41-73); Platelet Count 223 K/mm3 (150-400); RDW Coefficient Variation 14.7 % (11.7-14.2); RDW Standard Deviation 51.9 fL (35.1-46.3); Red Blood Cell Count 2.96 M/mm3 (3.80-5.20); White Blood Cell Count 4.85 K/mm3 (4.00-11.30)
[2020-10-09 09:22] LABS: Anion Gap 12 mmol/L (6-16); Blood Urea Nitrogen 11 mg/dL (8-24); Bun/Creatinine Ratio 16.6 (12.0-20.0); CO2, Blood 15 mmol/L (21-32); Calcium, Blood 7.9 mg/dL (8.5-10.1); Chloride, Blood 111 mmol/L (98-108); Creatinine, Blood 0.66 mg/dL (0.40-1.00); Glomerular Filtration Rate >60 (60-); Glucose, Blood 80 mg/dL (70-99); Magnesium, Blood 1.7 mg/dL (1.6-2.4); Potassium, Blood 3.1 mmol/L (3.5-5.5); Sodium, Blood 138 mmol/L (136-145)
--- NOTE | 2020-10-09 19:10 | NUR ---
SHIFT SUMMARY POD 4. PT AAOX4. REPORTS PASSING GAS. LOOSE STOOL DURING SHIFT. UP TO BSC TO VOID. WALKING WITH SBY ASSIST IN HALLS. PT ADVANCING DIET TO FULL LIQUID, WANTED TO START SLOW WITH OATMEAL AND SOUP. DENIES NAUSEA DURING SHIFT, PAIN TOLERABLE.
--- NOTE | 2020-10-10 04:24 | NUR ---
PATIENT HAD AN EPISODE OF VOMITING THAT CAME ON SUDDENLY AFTER GETTING BACK TO BED AFTER USING THE BSC. ZOFRAN KRISSY GIVEN, NAUSEA AND VOMITING HAVE RESOLVED, HOWEVER PATIENT STILL FEELS A LITTLE "OFF". PRIOR TO THIS EPISODE SHE HAD SLEPT WELL. NO OTHER CHANGES TO PATIENT CONDITION. CALL LIGHT IN REACH.
[2020-10-10 04:45] LABS: BASOPHILS ABSOLUTE AUTO 0.01 K/mm3 (0.00-0.23); BASOPHILS PERCENT AUTO 0 % (0-2); EOSINOPHILS ABSOLUTE AUTO 0.12 K/mm3 (0.00-0.68); EOSINOPHILS PERCENT AUTO 2 % (0-6); Hematocrit 30.6 % (33.0-51.0); Hemoglobin 9.9 g/dL (11.5-16.0); IMMATURE GRAN ABSOLUTE AUTO 0.03 K/mm3 (0.00-0.10); IMMATURE GRAN PERCENT AUTO 1 % (0-1); LYMPHOCYTES ABSOLUTE AUTO 1.13 K/mm3 (0.84-5.20); LYMPHOCYTES PERCENT AUTO 20 % (21-46); MONOCYTES PERCENT AUTO 11 % (4-13); Mean Corpuscular HGB 31.3 pg (26.0-34.0); Mean Corpuscular HGB Conc 32.4 g/dL (31.5-36.5); Mean Corpuscular Volume 97 fL (80-100); Mean Platelet Volume 9.4 fL (9.1-12.4); NEUTROPHILS ABSOLUTE AUTO 3.68 K/mm3 (1.96-9.15); NEUTROPHILS PERCENT AUTO 66 % (41-73); Platelet Count 274 K/mm3 (150-400); RDW Coefficient Variation 14.6 % (11.7-14.2); RDW Standard Deviation 51.2 fL (35.1-46.3); Red Blood Cell Count 3.16 M/mm3 (3.80-5.20); White Blood Cell Count 5.57 K/mm3 (4.00-11.30)
[2020-10-10 05:16] LABS: Albumin, Blood 2.1 g/dL (3.4-5.0); Anion Gap 10 mmol/L (6-16); Blood Urea Nitrogen 7 mg/dL (8-24); Bun/Creatinine Ratio 11.2 (12.0-20.0); CO2, Blood 20 mmol/L (21-32); Calcium, Blood 8.3 mg/dL (8.5-10.1); Chloride, Blood 110 mmol/L (98-108); Creatinine, Blood 0.63 mg/dL (0.40-1.00); Glomerular Filtration Rate >60 (60-); Glucose, Blood 93 mg/dL (70-99); Magnesium, Blood 1.8 mg/dL (1.6-2.4); Phosphorus, Blood 2.1 mg/dL (2.5-4.9); Potassium, Blood 3.3 mmol/L (3.5-5.5); Sodium, Blood 140 mmol/L (136-145)
--- NOTE | 2020-10-10 17:24 | NUR ---
SUMMARY: NO ACUTE CHANGE TODAY. VSS, A/O. PT SEEMS TO BE TOLERATING DIET, DENIED N/V. SURGICAL SITE WNL. CONTINUES TO HAVE LIQ BM'S. WORKED WITH PT/OT AND WALKED IN THE HALLS WITH MINIMAL ASSIST. NO ACUTE SAFETY CONCERNS. WILL CTM AND REPORT TO ALAN RN.
--- NOTE | 2020-10-11 04:30 | NUR ---
SHIFT SUMMARY POD6 EXLAP W/ SMALL BOWEL RESECTION, A/O X4, VSS, TOLERATING PO, DENIES NAUSEA T/O SHIFT, VOIDING WELL W/ MULTIPLE BM'S USING BSC, TRANSERS BETWEEN BED AND BSC INDEPENDENTLY, PAIN WELL CONTROLLED, USES CALL LIGHT APPROPRIATELY. CALL LIGHT IN REACH, WILL CONTINUE TO MONITOR AND REPORT TO ONCOMING DAYR RN.
[2020-10-11 09:45] LABS: Albumin, Blood 2.3 g/dL (3.4-5.0); Anion Gap 9 mmol/L (6-16); Blood Urea Nitrogen 6 mg/dL (8-24); Bun/Creatinine Ratio 9.3 (12.0-20.0); CO2, Blood 25 mmol/L (21-32); Calcium, Blood 8.5 mg/dL (8.5-10.1); Chloride, Blood 105 mmol/L (98-108); Creatinine, Blood 0.64 mg/dL (0.40-1.00); Glomerular Filtration Rate >60 (60-); Glucose, Blood 117 mg/dL (70-99); Phosphorus, Blood 3.2 mg/dL (2.5-4.9); Potassium, Blood 3.3 mmol/L (3.5-5.5); Sodium, Blood 139 mmol/L (136-145)
--- NOTE | 2020-10-11 17:22 | NUR ---
SUMMARY: NO ACUTE CHANGE TODAY. VSS, A/O. SURGICAL SITE WNL. PT ABLE TO WALK INDEPENDENTLY IN HALLS AND TAKE SHOWER. MINIMAL PAIN. PT TO TRY REG DIET FOR DINNER. HAS DENIED NAUSEA, HAD SEVERAL BMS TODAY. NO ACUTE CONCERNS.
[2020-10-12 04:37] LABS: Albumin, Blood 2.2 g/dL (3.4-5.0); Anion Gap 7 mmol/L (6-16); Blood Urea Nitrogen 10 mg/dL (8-24); Bun/Creatinine Ratio 14.7 (12.0-20.0); CO2, Blood 27 mmol/L (21-32); Calcium, Blood 8.2 mg/dL (8.5-10.1); Chloride, Blood 106 mmol/L (98-108); Creatinine, Blood 0.68 mg/dL (0.40-1.00); Glomerular Filtration Rate >60 (60-); Glucose, Blood 99 mg/dL (70-99); Phosphorus, Blood 3.4 mg/dL (2.5-4.9); Potassium, Blood 3.8 mmol/L (3.5-5.5); Sodium, Blood 140 mmol/L (136-145)
--- NOTE | 2020-10-12 06:36 | NUR ---
SHIFT SUMMARY POD7 EXLAP, A/O X4, VSS, INDEPENDENT IN ROOM, TOLERATING REG DIET, MULTIPLE BM, VOIDING WELL, PAIN WELL CONTROLLED. NO ACUTE EVENTS DURING SHIFT, CALL LIGHT IN REACH, WILL CONTINUE TO MONITOR AND REPORT TO ONCOMING DAY RN.
--- NOTE | 2020-10-12 07:53 | NUR ---
pt eating breakfast
--- NOTE | 2020-10-12 11:30 | NUR ---
pt oob to bathroom
--- NOTE | 2020-10-12 12:04 | NUR ---
dr ohara by to see pt ok to discharge home if ok with surgeon
--- NOTE | 2020-10-12 12:07 | NUR ---
message left with dr antoien re going home
--- NOTE | 2020-10-12 13:35 | NUR ---
PT HAD EST 5 BM TODAY CL BROWN WITH FLECKS SIMILAR TO BOWEL PREP
--- NOTE | 2020-10-12 15:15 | NUR ---
PT VISITING WITH SPOUSE EATING A YOGURT DR LIND BY TO SEE PT
--- NOTE | 2020-10-12 17:45 | NUR ---
pt eating dinner
--- NOTE | 2020-10-12 18:42 | NUR ---
pt earlier given po tylenol for abd cramps after meal
--- NOTE | 2020-10-13 04:13 | NUR ---
SHIFT SUMMARY: PT POD#8 FOR RESECTION R/T SBO. ACTIVE BT X4. BREN WOUND VAC REMOVED AND INCISION CLEANSED. MINIMAL BLOODY DRG NOTED. INCISION APPEARS TO BE WNL. MEDIPORE DRESSING PLACED. PT DENIES LIQ STOOL THIS SHIFT. DENIES N/V. VOIDING WELL. MEDICATED WITH TYLENOL ONCE. INDEPENDENT IN ROOM. PLAN FOR DISCHARGE TODAY. PT EAGER TO GO HOME.
--- NOTE | 2020-10-13 08:00 | NUR ---
PT GAVE STUDENT NURSE LEONEL AMATO PERMISSION TO PARTICIPATE IN THEIR CARE
[2020-10-13] MEDS ORDERED: ACET325 PO (10:43)
[2020-10-13] MEDS ORDERED: Prinivil10 MG PO (10:44)
[2020-10-13] MEDS ORDERED: CEPACOL INSTAM1 EACH MM (10:44)
[2020-10-13] MEDS ORDERED: ONDA4ODT MM (10:45)
--- NOTE | 2020-10-13 11:39 | NUR ---
DISCHARGE SUMMARY PT A&OX4, VSS, LEFT FLOOR VIA WC WITH RN STUDENT, TO GO HOME WITH , WITH ALL PERSONAL POSSESSIONS INCLUDING DC PACKET. SCRIPTS FAXED TO [facility]. DC INSTRUCTIONS PROVIDED. PT REP UNDERSTANDING THOSE INSTRUCTIONS INCLUDING FU WITH SURGEON IN 1 WK TO REMOVE TOD, OK TO SHOWER, MEDIPORE DRESSING CHANGES. IV DC'D.
[2021-02-01] MEDS ORDERED: FOLI1 PO (19:45)
[2021-02-01] MEDS ORDERED: PREMARIN VAG CREAM VAG (19:46)
[2021-02-01] MEDS ORDERED: INFLECTRA100 MG (19:51)
[2021-02-01] MEDS ORDERED: DOCU100 PO (19:52)
[2021-02-01] MEDS ORDERED: MELA3 PO (19:52)
[2021-02-01] MEDS ORDERED: ASCO500 PO (19:52)
[2021-02-01] MEDS ORDERED: OYSTER SHELL 51 EACH PO (19:53)
[2021-02-01] MEDS ORDERED: THERA-D2000 UNIT PO (19:57)
[2021-02-06] MEDS ORDERED: ACET325 PO (13:46)
== END 2020-10-13 11:16 | disposition home health service (06) | DRG 330 ==
LOC: ER 09:53 → SURS 15:48
PROVIDERS: Emergency Medicine; Internal Medicine; Surgery; ADMIT Internal Medicine
PROC: 0DB80ZZ Excision of Small Intestine, Open Approach (ICD-10-PCS; principal; 2020-10-05 12:30)
DX: K45.0 Other specified abdominal hernia with obstruction, without gangrene (principal); R65.10 Systemic inflammatory response syndrome (SIRS) of non-infectious origin without acute organ dysfunction; K55.9 Vascular disorder of intestine, unspecified; M06.9 Rheumatoid arthritis, unspecified; I10 Essential (primary) hypertension; J47.9 Bronchiectasis, uncomplicated; Z79.82 Long term (current) use of aspirin; I73.00 Raynaud's syndrome without gangrene; Z87.891 Personal history of nicotine dependence; E87.6 Hypokalemia; E83.39 Other disorders of phosphorus metabolism
CPT/HCPCS: 0241U; 36415; 74176; 80048; 80053; 80069; 83690; 83735; 85025; 86850; 86870; 86900; 86901; 86902; 86905; 88307; 93005; 93010; 94760; 96374; 96375; 96376; 97110; 97116; 97162; 97165; 97530; 97535; 99285-25; A9270; J0295; J1100; J1170; J1650; J1885; J2370; J2405; J2704; J3010; J3480; J7030; J7040; J7060; J7120; J8610

== ENCOUNTER 2020-10-24 10:50 | Day surgery (SDC) | payer MEDICARE, BC ==
[~2020-10-24 10:50] MED LIST changes: +ALBU90OI INH; +ASPI325EC PO; +Aspirin EC81 MG PO; +BREO ELLIPTA 11 EAC1 INH; +CEPACOL INSTAM1 EACH MM; +CYAN500 PO; +Diltiazem ER180 M1 PO; +FOLI1 PO; +METTREX2.5 PO; +ONDA4ODT MM; +Prinivil10 MG PO; +TOCO1000 PO
[2020-10-24 12:42] LABS: BASOPHILS ABSOLUTE AUTO 0.06 K/mm3 (0.00-0.23); BASOPHILS PERCENT AUTO 0 % (0-2); EOSINOPHILS ABSOLUTE AUTO 0.04 K/mm3 (0.00-0.68); EOSINOPHILS PERCENT AUTO 0 % (0-6); Hematocrit 29.8 % (33.0-51.0); Hemoglobin 9.5 g/dL (11.5-16.0); IMMATURE GRAN ABSOLUTE AUTO 0.09 K/mm3 (0.00-0.10); IMMATURE GRAN PERCENT AUTO 1 % (0-1); LYMPHOCYTES ABSOLUTE AUTO 1.54 K/mm3 (0.84-5.20); LYMPHOCYTES PERCENT AUTO 12 % (21-46); MONOCYTES PERCENT AUTO 11 % (4-13); Mean Corpuscular HGB 31.4 pg (26.0-34.0); Mean Corpuscular HGB Conc 31.9 g/dL (31.5-36.5); Mean Corpuscular Volume 98 fL (80-100); Mean Platelet Volume 9.4 fL (9.1-12.4); NEUTROPHILS ABSOLUTE AUTO 10.18 K/mm3 (1.96-9.15); NEUTROPHILS PERCENT AUTO 76 % (41-73); Platelet Count 440 K/mm3 (150-400); RDW Standard Deviation 53.6 fL (35.1-46.3); Red Blood Cell Count 3.03 M/mm3 (3.80-5.20); White Blood Cell Count 13.41 K/mm3 (4.00-11.30)
[2020-10-24 13:06] LABS: Alanine Aminotransfer (ALT/SGP 20 U/L (12-78); Albumin, Blood 2.1 g/dL (3.4-5.0); Albumin/Globulin Ratio 0.4 (0.8-1.8); Alk Phos 83 U/L (50-136); Anion Gap 10 mmol/L (6-16); Aspartate Aminotrans (AST/SGOT 35 U/L (12-37); Bilirubin, Total 0.3 mg/dL (0.1-1.0); Blood Urea Nitrogen 19 mg/dL (8-24); Bun/Creatinine Ratio 32.5 (12.0-20.0); CO2, Blood 23 mmol/L (21-32); Chloride, Blood 108 mmol/L (98-108); Creatinine, Blood 0.58 mg/dL (0.40-1.00); Globulin, Blood 4.9 g/dL (2.2-4.0); Glomerular Filtration Rate >60 (60-); Glucose, Blood 86 mg/dL (70-99); Potassium, Blood 4.2 mmol/L (3.5-5.5); Sodium, Blood 141 mmol/L (136-145)
[2021-02-01] MEDS ORDERED: FOLI1 PO (19:45)
[2021-02-01] MEDS ORDERED: PREMARIN VAG CREAM VAG (19:46)
[2021-02-01] MEDS ORDERED: INFLECTRA100 MG (19:51)
[2021-02-01] MEDS ORDERED: MELA3 PO (19:52)
[2021-02-01] MEDS ORDERED: ASCO500 PO (19:52)
[2021-02-01] MEDS ORDERED: DOCU100 PO (19:52)
[2021-02-01] MEDS ORDERED: OYSTER SHELL 51 EACH PO (19:53)
[2021-02-01] MEDS ORDERED: THERA-D2000 UNIT PO (19:57)
[2021-02-06] MEDS ORDERED: ACET325 PO (13:46)
== END 2020-10-24 12:25 | disposition home or self-care (01) ==
LOC: ATC 10:50
PROVIDERS: Family Medicine
DX: E86.0 Dehydration (principal); I10 Essential (primary) hypertension; M06.9 Rheumatoid arthritis, unspecified; K21.9 Gastro-esophageal reflux disease without esophagitis; Z79.82 Long term (current) use of aspirin; Z87.891 Personal history of nicotine dependence; Z88.2 Allergy status to sulfonamides; Z88.6 Allergy status to analgesic agent; Z88.8 Allergy status to other drugs, medicaments and biological substances
CPT/HCPCS: 80053; 85025; 96360; J7030

== ENCOUNTER 2020-10-31 00:10 | Day surgery (SDC) | payer MEDICARE, BC ==
[2020-10-31 09:48] LABS: BASOPHILS ABSOLUTE AUTO 0.04 K/mm3 (0.00-0.23); BASOPHILS PERCENT AUTO 0 % (0-2); EOSINOPHILS ABSOLUTE AUTO 0.19 K/mm3 (0.00-0.68); EOSINOPHILS PERCENT AUTO 2 % (0-6); Hematocrit 31.6 % (33.0-51.0); Hemoglobin 10.2 g/dL (11.5-16.0); IMMATURE GRAN ABSOLUTE AUTO 0.03 K/mm3 (0.00-0.10); IMMATURE GRAN PERCENT AUTO 0 % (0-1); LYMPHOCYTES ABSOLUTE AUTO 1.75 K/mm3 (0.84-5.20); LYMPHOCYTES PERCENT AUTO 17 % (21-46); MONOCYTES ABSOLUTE AUTO 1.19 K/mm3 (0.16-1.47); MONOCYTES PERCENT AUTO 11 % (4-13); Mean Corpuscular HGB Conc 32.3 g/dL (31.5-36.5); Mean Corpuscular Volume 96 fL (80-100); Mean Platelet Volume 9.2 fL (9.1-12.4); NEUTROPHILS ABSOLUTE AUTO 7.24 K/mm3 (1.96-9.15); NEUTROPHILS PERCENT AUTO 69 % (41-73); Platelet Count 474 K/mm3 (150-400); RDW Coefficient Variation 14.6 % (11.7-14.2); RDW Standard Deviation 50.9 fL (35.1-46.3); Red Blood Cell Count 3.29 M/mm3 (3.80-5.20); White Blood Cell Count 10.44 K/mm3 (4.00-11.30)
[2020-10-31 10:16] LABS: Alanine Aminotransfer (ALT/SGP 17 U/L (12-78); Albumin, Blood 2.7 g/dL (3.4-5.0); Albumin/Globulin Ratio 0.5 (0.8-1.8); Alk Phos 86 U/L (50-136); Anion Gap 10 mmol/L (6-16); Aspartate Aminotrans (AST/SGOT 21 U/L (12-37); Bilirubin, Total 0.3 mg/dL (0.1-1.0); Blood Urea Nitrogen 21 mg/dL (8-24); Bun/Creatinine Ratio 28.8 (12.0-20.0); CO2, Blood 26 mmol/L (21-32); Calcium, Blood 9.3 mg/dL (8.5-10.1); Chloride, Blood 103 mmol/L (98-108); Creatinine, Blood 0.73 mg/dL (0.40-1.00); Globulin, Blood 5.4 g/dL (2.2-4.0); Glomerular Filtration Rate >60 (60-); Glucose, Blood 97 mg/dL (70-99); Potassium, Blood 3.4 mmol/L (3.5-5.5); Sodium, Blood 139 mmol/L (136-145); Total Protein, Blood 8.1 g/dL (6.4-8.2)
[2021-02-01] MEDS ORDERED: FOLI1 PO (19:45)
[2021-02-01] MEDS ORDERED: PREMARIN VAG CREAM VAG (19:46)
[2021-02-01] MEDS ORDERED: INFLECTRA100 MG (19:51)
[2021-02-01] MEDS ORDERED: MELA3 PO (19:52)
[2021-02-01] MEDS ORDERED: ASCO500 PO (19:52)
[2021-02-01] MEDS ORDERED: DOCU100 PO (19:52)
[2021-02-01] MEDS ORDERED: OYSTER SHELL 51 EACH PO (19:53)
[2021-02-01] MEDS ORDERED: THERA-D2000 UNIT PO (19:57)
[2021-02-06] MEDS ORDERED: ACET325 PO (13:46)
== END 2020-10-31 11:50 | disposition home or self-care (01) ==
LOC: ATC 00:10
PROVIDERS: Family Medicine
DX: E86.0 Dehydration (principal); K56.699 Other intestinal obstruction unspecified as to partial versus complete obstruction; I10 Essential (primary) hypertension; Z79.82 Long term (current) use of aspirin; Z87.891 Personal history of nicotine dependence; Z88.2 Allergy status to sulfonamides
CPT/HCPCS: 80053; 85025; 96413; 96415; J7050; Q5103

== ENCOUNTER 2020-12-26 00:27 | Day surgery (SDC) | payer MEDICARE, BC ==
[~2020-12-26] VITALS: Wt 57.2 kg
[2020-12-26 09:33] LABS: BASOPHILS ABSOLUTE AUTO 0.08 K/mm3 (0.00-0.23); BASOPHILS PERCENT AUTO 1 % (0-2); EOSINOPHILS ABSOLUTE AUTO 0.25 K/mm3 (0.00-0.68); EOSINOPHILS PERCENT AUTO 3 % (0-6); Hematocrit 34.1 % (33.0-51.0); Hemoglobin 11.1 g/dL (11.5-16.0); IMMATURE GRAN ABSOLUTE AUTO 0.01 K/mm3 (0.00-0.10); IMMATURE GRAN PERCENT AUTO 0 % (0-1); LYMPHOCYTES ABSOLUTE AUTO 1.69 K/mm3 (0.84-5.20); LYMPHOCYTES PERCENT AUTO 22 % (21-46); MONOCYTES ABSOLUTE AUTO 0.83 K/mm3 (0.16-1.47); MONOCYTES PERCENT AUTO 11 % (4-13); Mean Corpuscular HGB 31.7 pg (26.0-34.0); Mean Corpuscular HGB Conc 32.6 g/dL (31.5-36.5); Mean Corpuscular Volume 97 fL (80-100); Mean Platelet Volume 9.4 fL (9.1-12.4); NEUTROPHILS ABSOLUTE AUTO 4.75 K/mm3 (1.96-9.15); NEUTROPHILS PERCENT AUTO 62 % (41-73); Platelet Count 293 K/mm3 (150-400); RDW Coefficient Variation 15.3 % (11.7-14.2); RDW Standard Deviation 54.6 fL (35.1-46.3); White Blood Cell Count 7.61 K/mm3 (4.00-11.30)
[2020-12-26 09:51] LABS: Alanine Aminotransfer (ALT/SGP 23 U/L (12-78); Albumin, Blood 3.1 g/dL (3.4-5.0); Albumin/Globulin Ratio 0.7 (0.8-1.8); Alk Phos 77 U/L (50-136); Anion Gap 8 mmol/L (6-16); Aspartate Aminotrans (AST/SGOT 22 U/L (12-37); Bilirubin, Total 0.3 mg/dL (0.1-1.0); Blood Urea Nitrogen 24 mg/dL (8-24); Bun/Creatinine Ratio 32.7 (12.0-20.0); CO2, Blood 24 mmol/L (21-32); Calcium, Blood 8.9 mg/dL (8.5-10.1); Chloride, Blood 109 mmol/L (98-108); Creatinine, Blood 0.73 mg/dL (0.40-1.00); Globulin, Blood 4.2 g/dL (2.2-4.0); Glomerular Filtration Rate >60 (60-); Glucose, Blood 83 mg/dL (70-99); Potassium, Blood 4.1 mmol/L (3.5-5.5); Sodium, Blood 141 mmol/L (136-145); Total Protein, Blood 7.3 g/dL (6.4-8.2)
[2021-02-01] MEDS ORDERED: FOLI1 PO (19:45)
[2021-02-01] MEDS ORDERED: PREMARIN VAG CREAM VAG (19:46)
[2021-02-01] MEDS ORDERED: INFLECTRA100 MG (19:51)
[2021-02-01] MEDS ORDERED: ASCO500 PO (19:52)
[2021-02-01] MEDS ORDERED: DOCU100 PO (19:52)
[2021-02-01] MEDS ORDERED: MELA3 PO (19:52)
[2021-02-01] MEDS ORDERED: OYSTER SHELL 51 EACH PO (19:53)
[2021-02-01] MEDS ORDERED: THERA-D2000 UNIT PO (19:57)
[2021-02-06] MEDS ORDERED: ACET325 PO (13:46)
== END 2020-12-26 11:45 | disposition home or self-care (01) ==
LOC: ATC 00:27
PROVIDERS: Family Medicine
DX: E86.0 Dehydration (principal); M06.9 Rheumatoid arthritis, unspecified; K21.9 Gastro-esophageal reflux disease without esophagitis; I73.00 Raynaud's syndrome without gangrene; I10 Essential (primary) hypertension; G60.8 Other hereditary and idiopathic neuropathies; N95.1 Menopausal and female climacteric states; K31.84 Gastroparesis; Z87.11 Personal history of peptic ulcer disease; Z87.891 Personal history of nicotine dependence; Z88.2 Allergy status to sulfonamides; Z88.5 Allergy status to narcotic agent; Z88.8 Allergy status to other drugs, medicaments and biological substances
CPT/HCPCS: 80053; 85025; 96413; 96415; J7050; Q5103

== ENCOUNTER 2021-02-20 00:25 | Day surgery (SDC) | payer MEDICARE, BC ==
[~2021-02-20] VITALS: Wt 55.9 kg
[~2021-02-20 00:25] MED LIST changes: +ASCO500 PO; +DOCU100 PO; +INFLECTRA100 MG; +MELA3 PO; +OYSTER SHELL 51 EACH PO; +PREMARIN VAG CREAM VAG; +THERA-D2000 UNIT PO
[2021-02-20 09:51] LABS: BASOPHILS ABSOLUTE AUTO 0.05 K/mm3 (0.00-0.23); BASOPHILS PERCENT AUTO 1 % (0-2); EOSINOPHILS ABSOLUTE AUTO 0.28 K/mm3 (0.00-0.68); EOSINOPHILS PERCENT AUTO 4 % (0-6); Hematocrit 34.7 % (33.0-51.0); Hemoglobin 11.2 g/dL (11.5-16.0); IMMATURE GRAN ABSOLUTE AUTO 0.01 K/mm3 (0.00-0.10); IMMATURE GRAN PERCENT AUTO 0 % (0-1); LYMPHOCYTES ABSOLUTE AUTO 1.73 K/mm3 (0.84-5.20); LYMPHOCYTES PERCENT AUTO 26 % (21-46); MONOCYTES PERCENT AUTO 9 % (4-13); Mean Corpuscular HGB 30.9 pg (26.0-34.0); Mean Corpuscular HGB Conc 32.3 g/dL (31.5-36.5); Mean Corpuscular Volume 96 fL (80-100); Mean Platelet Volume 9.8 fL (9.1-12.4); NEUTROPHILS ABSOLUTE AUTO 3.97 K/mm3 (1.96-9.15); NEUTROPHILS PERCENT AUTO 60 % (41-73); Platelet Count 335 K/mm3 (150-400); RDW Coefficient Variation 14.2 % (11.7-14.2); RDW Standard Deviation 49.3 fL (35.1-46.3); Red Blood Cell Count 3.62 M/mm3 (3.80-5.20); White Blood Cell Count 6.64 K/mm3 (4.00-11.30)
[2021-02-20 09:59] LABS: Albumin, Blood 3.3 g/dL (3.4-5.0); Albumin/Globulin Ratio 0.8 (0.8-1.8); Bilirubin, Total 0.3 mg/dL (0.1-1.0); Bun/Creatinine Ratio 22.7 (12.0-20.0); Calcium, Blood 9.1 mg/dL (8.5-10.1); Creatinine, Blood 0.97 mg/dL (0.40-1.00); Globulin, Blood 4.4 g/dL (2.2-4.0); Total Protein, Blood 7.7 g/dL (6.4-8.2)
== END 2021-02-20 11:49 | disposition home or self-care (01) ==
LOC: ATC 00:25
PROVIDERS: Family Medicine
DX: M06.9 Rheumatoid arthritis, unspecified (principal); I10 Essential (primary) hypertension; K21.9 Gastro-esophageal reflux disease without esophagitis; N95.1 Menopausal and female climacteric states; G60.8 Other hereditary and idiopathic neuropathies; J47.9 Bronchiectasis, uncomplicated; R39.81 Functional urinary incontinence; R13.12 Dysphagia, oropharyngeal phase; R60.0 Localized edema; K31.84 Gastroparesis
CPT/HCPCS: 80053; 85025; 96413; 96415; J7050; Q5103

== ENCOUNTER 2021-04-17 00:08 | Day surgery (SDC) | payer MEDICARE, BC ==
[2021-04-17 09:50] LABS: BASOPHILS ABSOLUTE AUTO 0.07 K/mm3 (0.00-0.23); BASOPHILS PERCENT AUTO 1 % (0-2); EOSINOPHILS ABSOLUTE AUTO 0.21 K/mm3 (0.00-0.68); EOSINOPHILS PERCENT AUTO 3 % (0-6); Hematocrit 36.6 % (33.0-51.0); IMMATURE GRAN ABSOLUTE AUTO 0.01 K/mm3 (0.00-0.10); IMMATURE GRAN PERCENT AUTO 0 % (0-1); LYMPHOCYTES ABSOLUTE AUTO 1.68 K/mm3 (0.84-5.20); LYMPHOCYTES PERCENT AUTO 25 % (21-46); MONOCYTES ABSOLUTE AUTO 0.81 K/mm3 (0.16-1.47); MONOCYTES PERCENT AUTO 12 % (4-13); Mean Corpuscular HGB 31.7 pg (26.0-34.0); Mean Corpuscular HGB Conc 32.8 g/dL (31.5-36.5); Mean Corpuscular Volume 97 fL (80-100); Mean Platelet Volume 9.8 fL (9.1-12.4); NEUTROPHILS ABSOLUTE AUTO 4.09 K/mm3 (1.96-9.15); NEUTROPHILS PERCENT AUTO 60 % (41-73); Platelet Count 292 K/mm3 (150-400); RDW Coefficient Variation 15.6 % (11.7-14.2); RDW Standard Deviation 55.3 fL (35.1-46.3); Red Blood Cell Count 3.79 M/mm3 (3.80-5.20); White Blood Cell Count 6.87 K/mm3 (4.00-11.30)
[2021-04-17 10:09] LABS: Alanine Aminotransfer (ALT/SGP 16 U/L (12-78); Albumin, Blood 3.5 g/dL (3.4-5.0); Albumin/Globulin Ratio 0.8 (0.8-1.8); Alk Phos 80 U/L (50-136); Anion Gap 5 mmol/L (6-16); Aspartate Aminotrans (AST/SGOT 22 U/L (12-37); Bilirubin, Total 0.3 mg/dL (0.1-1.0); Blood Urea Nitrogen 32 mg/dL (8-24); CO2, Blood 23 mmol/L (21-32); Calcium, Blood 8.9 mg/dL (8.5-10.1); Chloride, Blood 110 mmol/L (98-108); Creatinine, Blood 0.87 mg/dL (0.40-1.00); Globulin, Blood 4.4 g/dL (2.2-4.0); Glomerular Filtration Rate >60 (60-); Glucose, Blood 90 mg/dL (70-99); Potassium, Blood 4.4 mmol/L (3.5-5.5); Sodium, Blood 138 mmol/L (136-145); Total Protein, Blood 7.9 g/dL (6.4-8.2)
== END 2021-04-17 12:07 | disposition home or self-care (01) ==
LOC: ATC 00:08
PROVIDERS: Family Medicine
DX: M06.9 Rheumatoid arthritis, unspecified (principal); Z87.891 Personal history of nicotine dependence; Z88.1 Allergy status to other antibiotic agents; Z88.5 Allergy status to narcotic agent; Z88.8 Allergy status to other drugs, medicaments and biological substances
CPT/HCPCS: 80053; 85025; J7050; Q5103

== ENCOUNTER 2021-06-14 02:05 | Day surgery (SDC) | payer MEDICARE, BC ==
[~2021-06-14] VITALS: Wt 57.5 kg
[2021-06-14] MEDS ORDERED: PRED1 (09:42)
[2021-06-14 09:55] LABS: BASOPHILS ABSOLUTE AUTO 0.05 K/mm3 (0.00-0.23); BASOPHILS PERCENT AUTO 1 % (0-2); EOSINOPHILS ABSOLUTE AUTO 0.17 K/mm3 (0.00-0.68); EOSINOPHILS PERCENT AUTO 2 % (0-6); Hematocrit 38.3 % (33.0-51.0); Hemoglobin 12.7 g/dL (11.5-16.0); IMMATURE GRAN ABSOLUTE AUTO 0.03 K/mm3 (0.00-0.10); IMMATURE GRAN PERCENT AUTO 0 % (0-1); LYMPHOCYTES PERCENT AUTO 19 % (21-46); MONOCYTES ABSOLUTE AUTO 0.78 K/mm3 (0.16-1.47); MONOCYTES PERCENT AUTO 8 % (4-13); Mean Corpuscular HGB 32.1 pg (26.0-34.0); Mean Corpuscular HGB Conc 33.2 g/dL (31.5-36.5); Mean Corpuscular Volume 97 fL (80-100); Mean Platelet Volume 9.4 fL (9.1-12.4); NEUTROPHILS ABSOLUTE AUTO 6.49 K/mm3 (1.96-9.15); NEUTROPHILS PERCENT AUTO 70 % (41-73); Platelet Count 304 K/mm3 (150-400); RDW Coefficient Variation 14.9 % (11.7-14.2); RDW Standard Deviation 52.5 fL (35.1-46.3); Red Blood Cell Count 3.96 M/mm3 (3.80-5.20); White Blood Cell Count 9.32 K/mm3 (4.00-11.30)
[2021-06-14 10:06] LABS: Bun/Creatinine Ratio 28.2 (12.0-20.0); Calcium, Blood 8.8 mg/dL (8.5-10.1); Creatinine, Blood 0.96 mg/dL (0.40-1.00); Potassium, Blood 3.8 mmol/L (3.5-5.5)
== END 2021-06-14 11:53 | disposition home or self-care (01) ==
LOC: ATC 02:05
PROVIDERS: Family Medicine
DX: M06.9 Rheumatoid arthritis, unspecified (principal); I10 Essential (primary) hypertension; K21.9 Gastro-esophageal reflux disease without esophagitis; Z87.891 Personal history of nicotine dependence; Z88.2 Allergy status to sulfonamides; Z88.1 Allergy status to other antibiotic agents; Z88.5 Allergy status to narcotic agent; Z88.8 Allergy status to other drugs, medicaments and biological substances
CPT/HCPCS: 80048; 85025; 96413; 96415; J7050; Q5103

== ENCOUNTER 2021-08-07 05:41 | Day surgery (SDC) | payer MEDICARE, BC ==
[~2021-08-07] VITALS: Wt 57.1 kg
[~2021-08-07 05:41] MED LIST changes: +PRED1
[2021-08-07 09:23] LABS: BASOPHILS ABSOLUTE AUTO 0.05 K/mm3 (0.00-0.23); BASOPHILS PERCENT AUTO 1 % (0-2); EOSINOPHILS ABSOLUTE AUTO 0.27 K/mm3 (0.00-0.68); EOSINOPHILS PERCENT AUTO 3 % (0-6); Hematocrit 40.1 % (33.0-51.0); Hemoglobin 13.2 g/dL (11.5-16.0); IMMATURE GRAN ABSOLUTE AUTO 0.03 K/mm3 (0.00-0.10); IMMATURE GRAN PERCENT AUTO 0 % (0-1); LYMPHOCYTES ABSOLUTE AUTO 2.66 K/mm3 (0.84-5.20); LYMPHOCYTES PERCENT AUTO 25 % (21-46); MONOCYTES ABSOLUTE AUTO 1.04 K/mm3 (0.16-1.47); MONOCYTES PERCENT AUTO 10 % (4-13); Mean Corpuscular HGB 32.5 pg (26.0-34.0); Mean Corpuscular HGB Conc 32.9 g/dL (31.5-36.5); Mean Corpuscular Volume 99 fL (80-100); Mean Platelet Volume 9.6 fL (9.1-12.4); NEUTROPHILS ABSOLUTE AUTO 6.73 K/mm3 (1.96-9.15); NEUTROPHILS PERCENT AUTO 62 % (41-73); Platelet Count 305 K/mm3 (150-400); RDW Coefficient Variation 15.4 % (11.7-14.2); RDW Standard Deviation 55.8 fL (35.1-46.3); Red Blood Cell Count 4.06 M/mm3 (3.80-5.20); White Blood Cell Count 10.78 K/mm3 (4.00-11.30)
[2021-08-07 09:49] LABS: Alanine Aminotransfer (ALT/SGP 27 U/L (12-78); Albumin, Blood 3.3 g/dL (3.4-5.0); Albumin/Globulin Ratio 0.7 (0.8-1.8); Alk Phos 78 U/L (50-136); Anion Gap 4 mmol/L (6-16); Aspartate Aminotrans (AST/SGOT 27 U/L (12-37); Bilirubin, Total 0.4 mg/dL (0.1-1.0); Blood Urea Nitrogen 31 mg/dL (8-24); CO2, Blood 25 mmol/L (21-32); Calcium, Blood 9.1 mg/dL (8.5-10.1); Chloride, Blood 110 mmol/L (98-108); Creatinine, Blood 0.86 mg/dL (0.40-1.00); Globulin, Blood 4.6 g/dL (2.2-4.0); Glomerular Filtration Rate >60 (60-); Glucose, Blood 89 mg/dL (70-99); Potassium, Blood 4.1 mmol/L (3.5-5.5); Sodium, Blood 139 mmol/L (136-145); Total Protein, Blood 7.9 g/dL (6.4-8.2)
== END 2021-08-07 11:19 | disposition home or self-care (01) ==
LOC: ATC 05:41
PROVIDERS: Family Medicine
DX: M06.9 Rheumatoid arthritis, unspecified (principal)
CPT/HCPCS: 80053; 85025; 96413; 96415; J7050; Q5103

== ENCOUNTER → 2021-11-01 | Outpatient (CLI) | payer MEDICARE, BC ==
[2021-11-01 16:32] LABS: Adenovirus F 40/41 Not Detected (NOT DETECT); Astrovirus Not Detected (NOT DETECT); Campylobacter Sp Not Detected (NOT DETECT); Cryptosporidium Not Detected (NOT DETECT); Cyclospora Cayetanensis Not Detected (NOT DETECT); E. Coli O157 Not Detected (NOT DETECT); Entamoeba Histolytica Not Detected (NOT DETECT); Enteroaggregative E. coli-EAEC Not Detected (NOT DETECT); Enteropathogenic E. coli-EPEC Not Detected (NOT DETECT); Enterotoxigenic E. coli-ETEC Not Detected (NOT DETECT); Giardia Lamblia Not Detected (NOT DETECT); Norovirus GI/GII Not Detected (NOT DETECT); Plesiomonas Shigelloides Not Detected (NOT DETECT); Rotavirus A Not Detected (NOT DETECT); Salmonella Sp Not Detected (NOT DETECT); Sapovirus Detected (NOT DETECT); Shiga Toxin-prod E. coli-STEC Not Detected (NOT DETECT); Shigella/Enteroin E. coli-EIEC Not Detected (NOT DETECT); Vibrio Cholerae Not Detected (NOT DETECT); Vibrio Sp Not Detected (NOT DETECT); Yersinia Enterocolitica Not Detected (NOT DETECT)
== END | disposition home or self-care (01) ==
LOC: LAB SHORT 14:41
PROVIDERS: Family Medicine
DX: R19.7 Diarrhea, unspecified (principal)
CPT/HCPCS: 0097U

== ENCOUNTER 2022-01-29 01:25 | Day surgery (SDC) | payer MEDICARE, BC ==
[~2022-01-29 01:25] MED LIST changes: +IMODIUM A-D2 M1 PO; +ONDA4 PO; +Robaxin750 MG PO; +ZINC15
--- NOTE | 2022-01-29 09:06 | NUR ---
PT CANCELLED HER APPOINTMENT IN THE [facility] TODAY.
== END 2022-01-29 23:06 | disposition home or self-care (01) ==
LOC: ATC 01:25
DX: M06.9 Rheumatoid arthritis, unspecified (principal); I10 Essential (primary) hypertension; N95.1 Menopausal and female climacteric states; G60.8 Other hereditary and idiopathic neuropathies; K51.518 Left sided colitis with other complication; K21.9 Gastro-esophageal reflux disease without esophagitis; Z88.5 Allergy status to narcotic agent; Z88.2 Allergy status to sulfonamides; Z88.1 Allergy status to other antibiotic agents; Z79.82 Long term (current) use of aspirin

== ENCOUNTER 2022-02-07 00:23 | Day surgery (SDC) | payer MEDICARE, BC ==
[2022-02-07 14:53] LABS: BASOPHILS ABSOLUTE AUTO 0.02 K/mm3 (0.00-0.23); BASOPHILS PERCENT AUTO 0 % (0-2); EOSINOPHILS PERCENT AUTO 0 % (0-6); Hematocrit 37.5 % (33.0-51.0); Hemoglobin 12.4 g/dL (11.5-16.0); IMMATURE GRAN ABSOLUTE AUTO 0.04 K/mm3 (0.00-0.10); IMMATURE GRAN PERCENT AUTO 0 % (0-1); LYMPHOCYTES ABSOLUTE AUTO 1.13 K/mm3 (0.84-5.20); LYMPHOCYTES PERCENT AUTO 11 % (21-46); MONOCYTES ABSOLUTE AUTO 0.26 K/mm3 (0.16-1.47); MONOCYTES PERCENT AUTO 3 % (4-13); Mean Corpuscular HGB 31.6 pg (26.0-34.0); Mean Corpuscular HGB Conc 33.1 g/dL (31.5-36.5); Mean Corpuscular Volume 95 fL (80-100); Mean Platelet Volume 9.6 fL (9.1-12.4); NEUTROPHILS ABSOLUTE AUTO 8.52 K/mm3 (1.96-9.15); NEUTROPHILS PERCENT AUTO 86 % (41-73); Platelet Count 448 K/mm3 (150-400); RDW Coefficient Variation 14.6 % (11.7-14.2); RDW Standard Deviation 50.7 fL (35.1-46.3); Red Blood Cell Count 3.93 M/mm3 (3.80-5.20); White Blood Cell Count 9.97 K/mm3 (4.00-11.30)
[2022-02-07 15:10] LABS: Alanine Aminotransfer (ALT/SGP 31 U/L (12-78); Albumin, Blood 3.3 g/dL (3.4-5.0); Albumin/Globulin Ratio 0.8 (0.8-1.8); Alk Phos 76 U/L (50-136); Anion Gap 12 mmol/L (6-16); Aspartate Aminotrans (AST/SGOT 24 U/L (12-37); Bilirubin, Total 0.3 mg/dL (0.1-1.0); Blood Urea Nitrogen 31 mg/dL (8-24); Bun/Creatinine Ratio 42.9 (12.0-20.0); CO2, Blood 24 mmol/L (21-32); Calcium, Blood 8.9 mg/dL (8.5-10.1); Chloride, Blood 106 mmol/L (98-108); Creatinine, Blood 0.72 mg/dL (0.40-1.00); Glomerular Filtration Rate >60 (60-); Glucose, Blood 112 mg/dL (70-99); Potassium, Blood 3.2 mmol/L (3.5-5.5); Sodium, Blood 142 mmol/L (136-145); Total Protein, Blood 7.3 g/dL (6.4-8.2)
[2022-02-07] MEDS ORDERED: Methocarbamol750 MG PO (16:24)
[2022-02-07] MEDS ORDERED: Prednisone10 MG PO (16:25)
[2022-02-07] MEDS ORDERED: BUDESONIDE EC3 M5 PO (16:25)
== END 2022-02-07 11:52 | disposition home or self-care (01) ==
LOC: ATC 00:23
PROVIDERS: Family Medicine
DX: M06.9 Rheumatoid arthritis, unspecified (principal); K21.9 Gastro-esophageal reflux disease without esophagitis; I10 Essential (primary) hypertension; N95.1 Menopausal and female climacteric states; G60.8 Other hereditary and idiopathic neuropathies; Z87.891 Personal history of nicotine dependence; Z88.1 Allergy status to other antibiotic agents; Z88.5 Allergy status to narcotic agent; Z88.2 Allergy status to sulfonamides; Z88.8 Allergy status to other drugs, medicaments and biological substances
CPT/HCPCS: 80053; 85025; J7050; Q5103

== ENCOUNTER 2022-04-02 02:15 | Day surgery (SDC) | payer MEDICARE, BC ==
[~2022-04-02 02:15] MED LIST changes: +BUDESONIDE EC3 M5 PO; +Methocarbamol750 MG PO; +Prednisone10 MG PO
[2022-04-02 09:49] LABS: BASOPHILS ABSOLUTE AUTO 0.08 K/mm3 (0.00-0.23); BASOPHILS PERCENT AUTO 1 % (0-2); EOSINOPHILS ABSOLUTE AUTO 0.19 K/mm3 (0.00-0.68); EOSINOPHILS PERCENT AUTO 2 % (0-6); Hematocrit 40.2 % (33.0-51.0); IMMATURE GRAN ABSOLUTE AUTO 0.02 K/mm3 (0.00-0.10); IMMATURE GRAN PERCENT AUTO 0 % (0-1); LYMPHOCYTES ABSOLUTE AUTO 2.18 K/mm3 (0.84-5.20); LYMPHOCYTES PERCENT AUTO 24 % (21-46); MONOCYTES ABSOLUTE AUTO 1.17 K/mm3 (0.16-1.47); MONOCYTES PERCENT AUTO 13 % (4-13); Mean Corpuscular HGB 30.9 pg (26.0-34.0); Mean Corpuscular HGB Conc 32.3 g/dL (31.5-36.5); Mean Corpuscular Volume 96 fL (80-100); Mean Platelet Volume 9.1 fL (9.1-12.4); NEUTROPHILS ABSOLUTE AUTO 5.57 K/mm3 (1.96-9.15); NEUTROPHILS PERCENT AUTO 60 % (41-73); Platelet Count 302 K/mm3 (150-400); RDW Standard Deviation 52.2 fL (35.1-46.3); Red Blood Cell Count 4.21 M/mm3 (3.80-5.20); White Blood Cell Count 9.21 K/mm3 (4.00-11.30)
[2022-04-02 10:09] LABS: Albumin, Blood 3.3 g/dL (3.4-5.0); Albumin/Globulin Ratio 0.8 (0.8-1.8); Bilirubin, Total 0.4 mg/dL (0.1-1.0); Bun/Creatinine Ratio 33.8 (12.0-20.0); Calcium, Blood 9.5 mg/dL (8.5-10.1); Creatinine, Blood 0.77 mg/dL (0.40-1.00); Globulin, Blood 4.2 g/dL (2.2-4.0); Potassium, Blood 3.9 mmol/L (3.5-5.5); Total Protein, Blood 7.5 g/dL (6.4-8.2)
== END 2022-04-02 11:53 | disposition home or self-care (01) ==
LOC: ATC 02:15
PROVIDERS: Family Medicine
DX: M06.9 Rheumatoid arthritis, unspecified (principal); K21.9 Gastro-esophageal reflux disease without esophagitis; I10 Essential (primary) hypertension; Z87.891 Personal history of nicotine dependence; Z88.1 Allergy status to other antibiotic agents; Z88.5 Allergy status to narcotic agent; Z88.2 Allergy status to sulfonamides; Z88.8 Allergy status to other drugs, medicaments and biological substances; G60.8 Other hereditary and idiopathic neuropathies
CPT/HCPCS: 80053; 85025; J7050; Q5103

== ENCOUNTER 2022-05-28 01:17 | Day surgery (SDC) | payer MEDICARE, BC ==
[~2022-05-28] VITALS: Wt 54.0 kg
[2022-05-28 09:59] LABS: BASOPHILS ABSOLUTE AUTO 0.06 K/mm3 (0.00-0.23); BASOPHILS PERCENT AUTO 1 % (0-2); EOSINOPHILS ABSOLUTE AUTO 0.44 K/mm3 (0.00-0.68); EOSINOPHILS PERCENT AUTO 7 % (0-6); Hematocrit 41.5 % (33.0-51.0); Hemoglobin 13.3 g/dL (11.5-16.0); IMMATURE GRAN ABSOLUTE AUTO 0.02 K/mm3 (0.00-0.10); IMMATURE GRAN PERCENT AUTO 0 % (0-1); LYMPHOCYTES ABSOLUTE AUTO 1.93 K/mm3 (0.84-5.20); LYMPHOCYTES PERCENT AUTO 29 % (21-46); MONOCYTES ABSOLUTE AUTO 0.95 K/mm3 (0.16-1.47); MONOCYTES PERCENT AUTO 14 % (4-13); Mean Corpuscular HGB 29.6 pg (26.0-34.0); Mean Corpuscular Volume 92 fL (80-100); Mean Platelet Volume 9.1 fL (9.1-12.4); NEUTROPHILS ABSOLUTE AUTO 3.21 K/mm3 (1.96-9.15); NEUTROPHILS PERCENT AUTO 49 % (41-73); Platelet Count 300 K/mm3 (150-400); RDW Coefficient Variation 13.9 % (11.7-14.2); RDW Standard Deviation 47.4 fL (35.1-46.3); White Blood Cell Count 6.61 K/mm3 (4.00-11.30)
[2022-05-28] MEDS ORDERED: K-Dur20 MEQ PO (10:15)
[2022-05-28 10:26] LABS: Albumin/Globulin Ratio 0.7 (0.8-1.8); Bilirubin, Total 0.3 mg/dL (0.1-1.0); Bun/Creatinine Ratio 35.7 (12.0-20.0); Calcium, Blood 8.7 mg/dL (8.5-10.1); Creatinine, Blood 0.81 mg/dL (0.40-1.00); Globulin, Blood 4.3 g/dL (2.2-4.0); Potassium, Blood 3.8 mmol/L (3.5-5.5); Total Protein, Blood 7.3 g/dL (6.4-8.2)
== END 2022-05-28 11:57 | disposition home or self-care (01) ==
LOC: ATC 01:17
PROVIDERS: Family Medicine
DX: M06.9 Rheumatoid arthritis, unspecified (principal); K21.9 Gastro-esophageal reflux disease without esophagitis; Z79.82 Long term (current) use of aspirin; Z79.899 Other long term (current) drug therapy; Z87.891 Personal history of nicotine dependence; Z88.5 Allergy status to narcotic agent; Z88.2 Allergy status to sulfonamides; Z88.8 Allergy status to other drugs, medicaments and biological substances
CPT/HCPCS: 80053; 85025; 96413; 96415; J7050; Q5103

== ENCOUNTER 2022-07-30 02:49 | Day surgery (SDC) | payer MEDICARE, BC ==
[~2022-07-30 02:49] MED LIST changes: +K-Dur20 MEQ PO
[2022-07-30] MEDS ORDERED: Robaxin750 MG PO (09:50)
[2022-07-30] MEDS ORDERED: TERB250 PO (09:52)
[2022-07-30 09:59] LABS: BASOPHILS ABSOLUTE AUTO 0.04 K/mm3 (0.00-0.23); BASOPHILS PERCENT AUTO 0 % (0-2); EOSINOPHILS ABSOLUTE AUTO 0.12 K/mm3 (0.00-0.68); EOSINOPHILS PERCENT AUTO 1 % (0-6); Hematocrit 39.6 % (33.0-51.0); Hemoglobin 12.9 g/dL (11.5-16.0); IMMATURE GRAN ABSOLUTE AUTO 0.03 K/mm3 (0.00-0.10); IMMATURE GRAN PERCENT AUTO 0 % (0-1); LYMPHOCYTES ABSOLUTE AUTO 3.22 K/mm3 (0.84-5.20); LYMPHOCYTES PERCENT AUTO 33 % (21-46); MONOCYTES PERCENT AUTO 10 % (4-13); Mean Corpuscular HGB 30.4 pg (26.0-34.0); Mean Corpuscular HGB Conc 32.6 g/dL (31.5-36.5); Mean Corpuscular Volume 93 fL (80-100); Mean Platelet Volume 10.4 fL (9.1-12.4); NEUTROPHILS ABSOLUTE AUTO 5.28 K/mm3 (1.96-9.15); NEUTROPHILS PERCENT AUTO 55 % (41-73); Platelet Count 276 K/mm3 (150-400); RDW Coefficient Variation 16.3 % (11.7-14.2); RDW Standard Deviation 55.8 fL (35.1-46.3); Red Blood Cell Count 4.24 M/mm3 (3.80-5.20); White Blood Cell Count 9.69 K/mm3 (4.00-11.30)
[2022-07-30 10:22] LABS: Albumin, Blood 3.1 g/dL (3.4-5.0); Albumin/Globulin Ratio 0.8 (0.8-1.8); Bilirubin, Total 0.2 mg/dL (0.1-1.0); Bun/Creatinine Ratio 32.1 (12.0-20.0); Calcium, Blood 8.3 mg/dL (8.5-10.1); Creatinine, Blood 0.81 mg/dL (0.40-1.00); Globulin, Blood 3.8 g/dL (2.2-4.0); Potassium, Blood 2.6 mmol/L (3.5-5.5); Total Protein, Blood 6.9 g/dL (6.4-8.2)
== END 2022-07-30 11:25 | disposition home or self-care (01) ==
LOC: ATC 02:49
PROVIDERS: Family Medicine
DX: M06.9 Rheumatoid arthritis, unspecified (principal); I73.00 Raynaud's syndrome without gangrene; K21.9 Gastro-esophageal reflux disease without esophagitis; J47.9 Bronchiectasis, uncomplicated; I10 Essential (primary) hypertension; K51.518 Left sided colitis with other complication; N95.1 Menopausal and female climacteric states; G60.8 Other hereditary and idiopathic neuropathies; R39.81 Functional urinary incontinence; R60.0 Localized edema; Z87.891 Personal history of nicotine dependence; Z79.899 Other long term (current) drug therapy; Z79.82 Long term (current) use of aspirin; Z79.51 Long term (current) use of inhaled steroids
CPT/HCPCS: 80053; 85025; 96413; 96415; J7050; Q5103

== ENCOUNTER → 2022-11-26 | Outpatient (CLI) | payer MEDICARE, BC ==
[~2022-11-26] MED LIST changes: +POTA10T PO; +TERB250 PO
== END | disposition home or self-care (01) ==
LOC: LAB SHORT 15:46 → LAB 15:46
DX: R30.0 Dysuria (principal)
CPT/HCPCS: 87077; 87086; 87186

== ENCOUNTER 2023-02-04 01:00 | Day surgery (SDC) | payer MEDICARE, BC ==
[2023-02-04 13:41] VITALS: BP 163/94
[2023-02-04 17:03] LABS: BASOPHILS ABSOLUTE AUTO 0.06 K/mm3 (0.00-0.23); BASOPHILS PERCENT AUTO 1 % (0-2); EOSINOPHILS ABSOLUTE AUTO 0.31 K/mm3 (0.00-0.68); EOSINOPHILS PERCENT AUTO 4 % (0-6); Hematocrit 38.5 % (33.0-51.0); Hemoglobin 12.4 g/dL (11.5-16.0); IMMATURE GRAN ABSOLUTE AUTO 0.01 K/mm3 (0.00-0.10); IMMATURE GRAN PERCENT AUTO 0 % (0-1); LYMPHOCYTES ABSOLUTE AUTO 2.33 K/mm3 (0.84-5.20); LYMPHOCYTES PERCENT AUTO 33 % (21-46); MONOCYTES ABSOLUTE AUTO 0.99 K/mm3 (0.16-1.47); MONOCYTES PERCENT AUTO 14 % (4-13); Mean Corpuscular HGB 31.5 pg (26.0-34.0); Mean Corpuscular HGB Conc 32.2 g/dL (31.5-36.5); Mean Corpuscular Volume 98 fL (80-100); Mean Platelet Volume 9.1 fL (9.1-12.4); NEUTROPHILS ABSOLUTE AUTO 3.42 K/mm3 (1.96-9.15); NEUTROPHILS PERCENT AUTO 48 % (41-73); Platelet Count 240 K/mm3 (150-400); RDW Coefficient Variation 13.6 % (11.7-14.2); RDW Standard Deviation 49.7 fL (35.1-46.3); Red Blood Cell Count 3.94 M/mm3 (3.80-5.20); White Blood Cell Count 7.12 K/mm3 (4.00-11.30)
[2023-02-04 17:28] LABS: Albumin, Blood 3.3 g/dL (3.4-5.0); Albumin/Globulin Ratio 0.8 (0.8-1.8); Bilirubin, Total 0.2 mg/dL (0.1-1.0); Bun/Creatinine Ratio 30.2 (12.0-20.0); Calcium, Blood 8.8 mg/dL (8.5-10.1); Creatinine, Blood 0.79 mg/dL (0.40-1.00); Globulin, Blood 4.3 g/dL (2.2-4.0); Potassium, Blood 4.1 mmol/L (3.5-5.5); Total Protein, Blood 7.6 g/dL (6.4-8.2)
== END 2023-02-04 16:55 | disposition home or self-care (01) ==
LOC: ATC 01:00
PROVIDERS: Family Medicine
DX: M06.9 Rheumatoid arthritis, unspecified (principal); Z87.891 Personal history of nicotine dependence; I10 Essential (primary) hypertension; K21.9 Gastro-esophageal reflux disease without esophagitis
CPT/HCPCS: 80053; 85025; 96413; 96415; J7050; Q5103

== ENCOUNTER 2023-05-27 00:34 | Day surgery (SDC) | payer MEDICARE, BC ==
[~2023-05-27 00:34] MED LIST changes: +PANT40
[2023-05-27 08:55] VITALS: BP 162/66
--- NOTE | 2023-05-27 11:41 | NUR ---
LABS DRAWM FROM AFTER INFLECTRA INFUSION COMPLETED. FLUSHED WTIH 5 ML NS, 3 ML WASTE, 6 ML BLOOD DRAWN AND FLUSHED WITH 10 ML NS. IV DC'D AFTER LABS DRAWN
[2023-05-27 12:18] LABS: BASOPHILS ABSOLUTE AUTO 0.05 K/mm3 (0.00-0.23); BASOPHILS PERCENT AUTO 1 % (0-2); EOSINOPHILS ABSOLUTE AUTO 0.13 K/mm3 (0.00-0.68); EOSINOPHILS PERCENT AUTO 1 % (0-6); Hematocrit 39.9 % (33.0-51.0); Hemoglobin 13.1 g/dL (11.5-16.0); IMMATURE GRAN ABSOLUTE AUTO 0.04 K/mm3 (0.00-0.10); IMMATURE GRAN PERCENT AUTO 0 % (0-1); LYMPHOCYTES ABSOLUTE AUTO 1.35 K/mm3 (0.84-5.20); LYMPHOCYTES PERCENT AUTO 14 % (21-46); MONOCYTES ABSOLUTE AUTO 1.02 K/mm3 (0.16-1.47); MONOCYTES PERCENT AUTO 10 % (4-13); Mean Corpuscular HGB 31.8 pg (26.0-34.0); Mean Corpuscular HGB Conc 32.8 g/dL (31.5-36.5); Mean Corpuscular Volume 97 fL (80-100); Mean Platelet Volume 10.1 fL (9.1-12.4); NEUTROPHILS ABSOLUTE AUTO 7.37 K/mm3 (1.96-9.15); NEUTROPHILS PERCENT AUTO 74 % (41-73); Platelet Count 237 K/mm3 (150-400); RDW Coefficient Variation 14.1 % (11.7-14.2); RDW Standard Deviation 50.9 fL (35.1-46.3); Red Blood Cell Count 4.12 M/mm3 (3.80-5.20); White Blood Cell Count 9.96 K/mm3 (4.00-11.30)
[2023-05-27 12:25] LABS: Albumin, Blood 3.3 g/dL (3.4-5.0); Bilirubin, Total 0.4 mg/dL (0.1-1.0); Bun/Creatinine Ratio 39.3 (12.0-20.0); Calcium, Blood 8.6 mg/dL (8.5-10.1); Creatinine, Blood 0.74 mg/dL (0.40-1.00); Globulin, Blood 3.4 g/dL (2.2-4.0); Potassium, Blood 3.7 mmol/L (3.5-5.5); Total Protein, Blood 6.7 g/dL (6.4-8.2)
== END 2023-05-27 11:39 | disposition home or self-care (01) ==
LOC: ATC 00:34
PROVIDERS: Family Medicine
DX: M06.9 Rheumatoid arthritis, unspecified (principal); I10 Essential (primary) hypertension; K21.9 Gastro-esophageal reflux disease without esophagitis; G60.8 Other hereditary and idiopathic neuropathies
CPT/HCPCS: 80053; 85025; 96413; 96415; J7050; Q5103

== ENCOUNTER 2023-07-22 02:07 | Day surgery (SDC) | payer MEDICARE, BC ==
[2023-07-22 09:05] VITALS: BP 127/86
[2023-07-22 09:49] LABS: BASOPHILS ABSOLUTE AUTO 0.08 K/mm3 (0.00-0.23); BASOPHILS PERCENT AUTO 1 % (0-2); EOSINOPHILS ABSOLUTE AUTO 0.26 K/mm3 (0.00-0.68); EOSINOPHILS PERCENT AUTO 3 % (0-6); Hematocrit 42.2 % (33.0-51.0); IMMATURE GRAN ABSOLUTE AUTO 0.03 K/mm3 (0.00-0.10); IMMATURE GRAN PERCENT AUTO 0 % (0-1); LYMPHOCYTES ABSOLUTE AUTO 2.46 K/mm3 (0.84-5.20); LYMPHOCYTES PERCENT AUTO 31 % (21-46); MONOCYTES ABSOLUTE AUTO 0.98 K/mm3 (0.16-1.47); MONOCYTES PERCENT AUTO 12 % (4-13); Mean Corpuscular HGB 32.3 pg (26.0-34.0); Mean Corpuscular HGB Conc 33.2 g/dL (31.5-36.5); Mean Corpuscular Volume 97 fL (80-100); Mean Platelet Volume 9.7 fL (9.1-12.4); NEUTROPHILS ABSOLUTE AUTO 4.19 K/mm3 (1.96-9.15); NEUTROPHILS PERCENT AUTO 52 % (41-73); Platelet Count 287 K/mm3 (150-400); RDW Coefficient Variation 13.8 % (11.7-14.2); RDW Standard Deviation 49.9 fL (35.1-46.3); Red Blood Cell Count 4.34 M/mm3 (3.80-5.20)
[2023-07-22 10:21] LABS: Albumin, Blood 3.4 g/dL (3.4-5.0); Albumin/Globulin Ratio 0.9 (0.8-1.8); Bilirubin, Total 0.3 mg/dL (0.1-1.0); Bun/Creatinine Ratio 27.4 (12.0-20.0); Calcium, Blood 8.9 mg/dL (8.5-10.1); Creatinine, Blood 1.13 mg/dL (0.40-1.00); Globulin, Blood 3.7 g/dL (2.2-4.0); Potassium, Blood 4.2 mmol/L (3.5-5.5); Total Protein, Blood 7.1 g/dL (6.4-8.2)
== END 2023-07-22 12:22 | disposition home or self-care (01) ==
LOC: ATC 02:07
PROVIDERS: Family Medicine
DX: M06.9 Rheumatoid arthritis, unspecified (principal); I73.00 Raynaud's syndrome without gangrene
CPT/HCPCS: 80053; 85025; 96413; 96415; J7050; Q5103

== ENCOUNTER 2023-09-16 04:02 | Day surgery (SDC) | payer MEDICARE, BC ==
[2023-09-16 09:05] VITALS: BP 169/94
[2023-09-16 09:54] LABS: BASOPHILS ABSOLUTE AUTO 0.07 K/mm3 (0.00-0.23); BASOPHILS PERCENT AUTO 1 % (0-2); EOSINOPHILS ABSOLUTE AUTO 0.35 K/mm3 (0.00-0.68); EOSINOPHILS PERCENT AUTO 3 % (0-6); Hematocrit 41.1 % (33.0-51.0); Hemoglobin 13.4 g/dL (11.5-16.0); IMMATURE GRAN ABSOLUTE AUTO 0.04 K/mm3 (0.00-0.10); IMMATURE GRAN PERCENT AUTO 0 % (0-1); LYMPHOCYTES ABSOLUTE AUTO 2.15 K/mm3 (0.84-5.20); LYMPHOCYTES PERCENT AUTO 19 % (21-46); MONOCYTES ABSOLUTE AUTO 1.01 K/mm3 (0.16-1.47); MONOCYTES PERCENT AUTO 9 % (4-13); Mean Corpuscular HGB 32.1 pg (26.0-34.0); Mean Corpuscular HGB Conc 32.6 g/dL (31.5-36.5); Mean Corpuscular Volume 99 fL (80-100); Mean Platelet Volume 9.8 fL (9.1-12.4); NEUTROPHILS ABSOLUTE AUTO 7.72 K/mm3 (1.96-9.15); NEUTROPHILS PERCENT AUTO 68 % (41-73); Platelet Count 289 K/mm3 (150-400); RDW Coefficient Variation 13.5 % (11.7-14.2); RDW Standard Deviation 49.1 fL (35.1-46.3); Red Blood Cell Count 4.17 M/mm3 (3.80-5.20); White Blood Cell Count 11.34 K/mm3 (4.00-11.30)
--- NOTE | 2023-09-16 09:54 | NUR ---
[address] WATTS ABOUT PT'S BP AND PULSE. STATES IT IS OK TO GIVE MEDICATION.
[2023-09-16 10:19] LABS: Albumin, Blood 3.2 g/dL (3.4-5.0); Albumin/Globulin Ratio 0.8 (0.8-1.8); Bilirubin, Total 0.4 mg/dL (0.1-1.0); Calcium, Blood 8.8 mg/dL (8.5-10.1); Creatinine, Blood 0.86 mg/dL (0.40-1.00); Globulin, Blood 3.8 g/dL (2.2-4.0); Potassium, Blood 4.5 mmol/L (3.5-5.5)
[2023-09-17] MEDS ORDERED: NITR100CA PO (13:34)
[2023-09-17] MEDS ORDERED: Prinivil10 MG PO (13:34)
== END 2023-09-16 12:14 | disposition home or self-care (01) ==
LOC: ATC 04:02
PROVIDERS: Family Medicine
DX: M06.9 Rheumatoid arthritis, unspecified (principal); Z87.891 Personal history of nicotine dependence; I10 Essential (primary) hypertension; K21.9 Gastro-esophageal reflux disease without esophagitis
CPT/HCPCS: 80053; 85025; 96413; 96415; J7050; Q5103

== ENCOUNTER 2023-09-17 10:47 | Emergency (ER) | payer MEDICARE, BC ==
[~2023-09-17] VITALS: Ht 157.5 cm; Wt 54.4 kg
[2023-09-17 12:52] LABS: Source, Urine Clean Catch
[2023-09-17 12:54] LABS: Bilirubin, Urine Neg (Neg); Blood, Urine Neg (Neg); Glucose Qualitative, Urine Neg (Neg); Ketones, Urine Neg (Neg); Leukocyte Esterase, Urine 1+ (Neg); Nitrite, Urine Neg (Neg); Protein, Urine Neg (Neg); Specific Gravity, Urine 1.005 (1.003-1.022); Urobilinogen, Urine NORM (Normal)
[2023-09-17 13:03] LABS: Appearance, Urine Hazy (Clear); Color, Urine Pale Yellow (P-Yellow)
[2023-09-17 13:04] LABS: Bacteria Few /hpf; Red Blood Cells, Urine 0-2 /hpf (0-2); Squamous Epithelial Cells Few /hpf (Few)
[2023-09-17 13:05] LABS: Transitional Epithelial Cells Rare /hpf (0-Rare)
[2023-09-17] MEDS ORDERED: NITR100CA PO (13:34)
[2023-09-17] MEDS ORDERED: Prinivil10 MG PO (13:34)
[2023-09-17 14:00] VITALS: BP 204/90
== END 2023-09-17 14:18 | disposition home or self-care (01) ==
LOC: ER 10:47
PROVIDERS: Student in an Organized Health Care Education/Training Program
DX: I10 Essential (primary) hypertension (principal); N39.0 Urinary tract infection, site not specified; R51.9 Headache, unspecified; M06.9 Rheumatoid arthritis, unspecified; Z88.1 Allergy status to other antibiotic agents; Z88.5 Allergy status to narcotic agent; Z88.2 Allergy status to sulfonamides; Z79.899 Other long term (current) drug therapy; Z79.82 Long term (current) use of aspirin; Z87.891 Personal history of nicotine dependence
CPT/HCPCS: 70450; 81001; 87077; 87086; 87186; 93005; 93010; 96374; 99284-25; A9270; J2765

== ENCOUNTER 2023-11-11 01:55 | Day surgery (SDC) | payer MEDICARE, BC ==
[~2023-11-11 01:55] MED LIST changes: +NITR100CA PO
[2023-11-11] MEDS ORDERED: Infliximab-DYYB 200 MG in NS 250 ML IV SCH (06:00)
[2023-11-11 09:15] VITALS: BP 150/79
[2023-11-11 10:00] LABS: BASOPHILS ABSOLUTE AUTO 0.07 K/mm3 (0.00-0.23); BASOPHILS PERCENT AUTO 1 % (0-2); EOSINOPHILS PERCENT AUTO 5 % (0-6); Hematocrit 40.1 % (33.0-51.0); Hemoglobin 12.8 g/dL (11.5-16.0); IMMATURE GRAN ABSOLUTE AUTO 0.03 K/mm3 (0.00-0.10); IMMATURE GRAN PERCENT AUTO 0 % (0-1); LYMPHOCYTES ABSOLUTE AUTO 2.25 K/mm3 (0.84-5.20); LYMPHOCYTES PERCENT AUTO 26 % (21-46); MONOCYTES ABSOLUTE AUTO 0.98 K/mm3 (0.16-1.47); MONOCYTES PERCENT AUTO 11 % (4-13); Mean Corpuscular HGB 32.2 pg (26.0-34.0); Mean Corpuscular HGB Conc 31.9 g/dL (31.5-36.5); Mean Corpuscular Volume 101 fL (80-100); Mean Platelet Volume 10.1 fL (9.1-12.4); NEUTROPHILS ABSOLUTE AUTO 4.85 K/mm3 (1.96-9.15); NEUTROPHILS PERCENT AUTO 57 % (41-73); Platelet Count 276 K/mm3 (150-400); RDW Coefficient Variation 13.6 % (11.7-14.2); RDW Standard Deviation 50.5 fL (35.1-46.3); Red Blood Cell Count 3.97 M/mm3 (3.80-5.20); White Blood Cell Count 8.58 K/mm3 (4.00-11.30)
[2023-11-11 10:26] LABS: Albumin, Blood 3.4 g/dL (3.4-5.0); Albumin/Globulin Ratio 0.8 (0.8-1.8); Bilirubin, Total 0.5 mg/dL (0.1-1.0); Bun/Creatinine Ratio 41.5 (12.0-20.0); Calcium, Blood 9.1 mg/dL (8.5-10.1); Creatinine, Blood 0.92 mg/dL (0.40-1.00); Globulin, Blood 4.2 g/dL (2.2-4.0); Potassium, Blood 4.9 mmol/L (3.5-5.5); Total Protein, Blood 7.6 g/dL (6.4-8.2)
[2023-11-11] MEDS ORDERED: NAPR220 PO (10:27)
[2023-11-11] MEDS ORDERED: LOSA50 PO (10:27)
[2023-11-11] MEDS ORDERED: ZYRTEC10 M2 PO (10:27)
[2023-11-11] MEDS ORDERED: DOCU100 PO (10:28)
[2023-11-11] MEDS ORDERED: CENTRUM SILVER1 EAC2 PO (10:28)
[2023-11-11] MEDS ORDERED: Preservision S1 EACH PO (10:28)
[2023-11-11] MEDS ORDERED: METO10 PO (10:29)
[2023-11-11] MEDS ORDERED: ZINC15 PO (10:29)
== END 2023-11-11 11:59 | disposition home or self-care (01) ==
LOC: ATC 01:55
PROVIDERS: Family Medicine
DX: M06.9 Rheumatoid arthritis, unspecified (principal); K21.9 Gastro-esophageal reflux disease without esophagitis; I10 Essential (primary) hypertension; M47.26 Other spondylosis with radiculopathy, lumbar region
CPT/HCPCS: 80053; 85025; 96413; 96415; J7050; Q5103

== ENCOUNTER → 2024-03-24 | Outpatient (CLI) | payer MEDICARE, BC ==
[~2024-03-24] MED LIST changes: +CENTRUM SILVER1 EAC2 PO; +LOSA50 PO; +METO10 PO; +NAPR220 PO; +Preservision S1 EACH PO; +ZINC15 PO; +ZYRTEC10 M2 PO; +Zofran4 MG PO
[2024-03-24 17:13] LABS: Adenovirus F 40/41 Not Detected (NOT DETECT); Astrovirus Not Detected (NOT DETECT); Campylobacter Sp Not Detected (NOT DETECT); Cryptosporidium Not Detected (NOT DETECT); Cyclospora Cayetanensis Not Detected (NOT DETECT); E. Coli O157 Not Detected (NOT DETECT); Entamoeba Histolytica Not Detected (NOT DETECT); Enteroaggregative E. coli-EAEC Not Detected (NOT DETECT); Enteropathogenic E. coli-EPEC Not Detected (NOT DETECT); Enterotoxigenic E. coli-ETEC Not Detected (NOT DETECT); Giardia Lamblia Not Detected (NOT DETECT); Norovirus GI/GII Not Detected (NOT DETECT); Plesiomonas Shigelloides Not Detected (NOT DETECT); Rotavirus A Not Detected (NOT DETECT); Salmonella Sp Not Detected (NOT DETECT); Sapovirus Detected (NOT DETECT); Shiga Toxin-prod E. coli-STEC Not Detected (NOT DETECT); Shigella/Enteroin E. coli-EIEC Not Detected (NOT DETECT); Vibrio Cholerae Not Detected (NOT DETECT); Vibrio Sp Not Detected (NOT DETECT); Yersinia Enterocolitica Not Detected (NOT DETECT)
== END | disposition home or self-care (01) ==
LOC: LAB 14:30 → LAB SHORT 14:30
PROVIDERS: Family Medicine
DX: R19.7 Diarrhea, unspecified (principal)
CPT/HCPCS: 87507

== ENCOUNTER 2024-07-02 10:17 | Inpatient (IN) | payer MEDICARE, BC ==
[~2024-07-02] VITALS: Ht 157.5 cm; Wt 47.2 kg
[~2024-07-02 10:17] MED LIST changes: +LOPERAMIDE212 PO; -PANT40; +PANT40 PO; +Preservision S1 EACH; -Preservision S1 EACH PO
[2024-07-02] MEDS ORDERED: NS 1,000 ML IV SCH (10:50)
[2024-07-02 11:12] LABS: BASOPHILS ABSOLUTE AUTO 0.06 K/mm3 (0.00-0.23); BASOPHILS PERCENT AUTO 1 % (0-2); EOSINOPHILS ABSOLUTE AUTO 0.08 K/mm3 (0.00-0.68); EOSINOPHILS PERCENT AUTO 1 % (0-6); Hematocrit 42.1 % (33.0-51.0); Hemoglobin 15.3 g/dL (11.5-16.0); IMMATURE GRAN ABSOLUTE AUTO 0.04 K/mm3 (0.00-0.10); IMMATURE GRAN PERCENT AUTO 0 % (0-1); LYMPHOCYTES ABSOLUTE AUTO 2.41 K/mm3 (0.84-5.20); LYMPHOCYTES PERCENT AUTO 25 % (21-46); MONOCYTES ABSOLUTE AUTO 1.33 K/mm3 (0.16-1.47); MONOCYTES PERCENT AUTO 14 % (4-13); Mean Corpuscular HGB 31.5 pg (26.0-34.0); Mean Corpuscular HGB Conc 36.3 g/dL (31.5-36.5); Mean Corpuscular Volume 87 fL (80-100); NEUTROPHILS ABSOLUTE AUTO 5.84 K/mm3 (1.96-9.15); NEUTROPHILS PERCENT AUTO 60 % (41-73); Platelet Count 340 K/mm3 (150-400); RDW Coefficient Variation 14.7 % (11.7-14.2); RDW Standard Deviation 46.9 fL (35.1-46.3); Red Blood Cell Count 4.86 M/mm3 (3.80-5.20); White Blood Cell Count 9.76 K/mm3 (4.00-11.30)
[2024-07-02 12:36] LABS: Albumin, Blood 3.4 g/dL (3.4-5.0); Albumin/Globulin Ratio 0.8 (0.8-1.8); Bilirubin, Total 0.5 mg/dL (0.1-1.0); Bun/Creatinine Ratio 22.5 (12.0-20.0); Calcium, Blood 9.1 mg/dL (8.5-10.1); Creatinine, Blood 1.2 mg/dL (0.40-1.00); Globulin, Blood 4.3 g/dL (2.2-4.0); Potassium, Blood 1.8 mmol/L (3.5-5.5); Total Protein, Blood 7.7 g/dL (6.4-8.2)
[2024-07-02] MEDS ORDERED: Lactated Ringer's 1,000 ML IV ONE (12:45)
[2024-07-02] MEDS ORDERED: Potassium Chloride 40 MEQ IV SCH (12:50)
[2024-07-02] MEDS ORDERED: Potassium Chl 20MEQ/Water100ML 100 ML IV SCH ×2 (12:50→23:15)
[2024-07-02] MEDS ORDERED: Acetaminophen 500 MG Tab PO ONE (12:55)
[2024-07-02] MEDS ORDERED: Ondansetron HCl 2 MG / ML 2ML Vial IV PRN (13:55)
[2024-07-02] MEDS ORDERED: FLU VACC TS2024-25(6MOS UP)/PF 45 MCG/0.5 ML SYRINGE IM SCH (13:55)
[2024-07-02] MEDS ORDERED: Acetaminophen 325 MG TABLET PO PRN (14:00)
[2024-07-02] MEDS ORDERED: Loperamide HCl 2 MG Cap PO PRN (14:55)
[2024-07-02] MEDS ORDERED: NS KCl 20mEq 1,000 ML IV SCH (15:00)
[2024-07-02 16:02] VITALS: BP 152/73
[2024-07-02] MEDS ORDERED: Cholestyramine 4 GM PKT PO SCH (16:30)
--- NOTE | 2024-07-02 18:00 | NUR ---
ADMISSION AND SHIFT SUMMARY PATIENT ADMITTED TO MEDICAL FLOOR WITH HX OF DIARRHEA X 6 MONTHS. POTASSIUM LEVEL CRITICALLY LOW. IV K RIDERS INFUSING. PATIENT DENIES ANY CHEST PAIN OR SHORTNESS OF BREATH. PATIENT STATES THAT SHE JUST FEELS WEAK AND TIRED. PATIENT REPORTS THAT SHE TENDS TO HAVE THE DIARRHEA AFTER SHE EATS. EDUCATION PROVIDED RELATED TO DIET TO HELP WITH DIARRHEA. PROVIDED EDUCATION RELATED TO LOW K LEVELS AND HEART ISSUES. PATIENT EASILY IRRITABLE WHEN NEEDING TO DO EKG AND LAB DRAW BECAUSE SHE WAS EATING. NO DIARRHEA SINCE ADMITTED TO MEDICAL FLOOR.
[2024-07-02 20:03] VITALS: BP 144/72
[2024-07-02] MEDS ORDERED: Metoclopramide HCl 10 MG Tab PO SCH (21:00)
[2024-07-02 22:42] LABS: Creatinine, Blood 0.85 mg/dL (0.40-1.00); Potassium, Blood 1.8 mmol/L (3.5-5.5)
[2024-07-02 22:51] LABS: Calcium, Blood 6.1 mg/dL (8.5-10.1)
[2024-07-02] MEDS ORDERED: Potassium Chloride 20 MEQ TabCR PO ONE (23:00)
[2024-07-02] MEDS ORDERED: NS 1,000 ML BAG IR ONE (23:40)
[2024-07-02] MEDS ORDERED: NS 500 ML IV SCH (23:50)
--- NOTE | 2024-07-03 00:08 | NUR ---
NURSE NOTE OBTAINED CRITICAL LOW POTASSIUM VALUE FROM LAB. RELAYED THIS TO MILLER. MILLER GAVE ADDITIONAL ORDERS. SEE EMAR FOR ADDITIONAL ORDERS.
[2024-07-03] MEDS ORDERED: Potassium Chloride 20 MEQ TabCR PO ONE ×2 (01:00→08:00)
[2024-07-03 03:16] LABS: Adenovirus F 40/41 Not Detected (NOT DETECT); Astrovirus Not Detected (NOT DETECT); Campylobacter Sp Not Detected (NOT DETECT); Cryptosporidium Not Detected (NOT DETECT); Cyclospora Cayetanensis Not Detected (NOT DETECT); E. Coli O157 Not Detected (NOT DETECT); Entamoeba Histolytica Not Detected (NOT DETECT); Enteroaggregative E. coli-EAEC Not Detected (NOT DETECT); Enteropathogenic E. coli-EPEC Not Detected (NOT DETECT); Enterotoxigenic E. coli-ETEC Not Detected (NOT DETECT); Giardia Lamblia Not Detected (NOT DETECT); Norovirus GI/GII Not Detected (NOT DETECT); Plesiomonas Shigelloides Not Detected (NOT DETECT); Rotavirus A Not Detected (NOT DETECT); Salmonella Sp Not Detected (NOT DETECT); Sapovirus Not Detected (NOT DETECT); Shiga Toxin-prod E. coli-STEC Not Detected (NOT DETECT); Shigella/Enteroin E. coli-EIEC Not Detected (NOT DETECT); Vibrio Cholerae Not Detected (NOT DETECT); Vibrio Sp Not Detected (NOT DETECT); Yersinia Enterocolitica Not Detected (NOT DETECT)
[2024-07-03 03:17] VITALS: BP 163/71
--- NOTE | 2024-07-03 04:45 | NUR ---
SHIFT SUMMARY PATIENT IS ALERT AND ORIENTED. PATIENT HAS HAD LOW POTASSIUM ALL SHIFT. WHEN THIS RN CAME ON SHIFT POTASSIUM WAS 2.0, THEN LOWERED TO 1.8. ALERTED PROVIDER. SEE PRIOR NOTE. SEE EMAR FOR POTASSIUM INFUSION SCHEDULE. AWAITING AM LAB RESULTS. NO EVENTS ON TELE. PATIENT HAS COMPLAINED OF HEADACHE OFF AND ON, MEDICATED PER EMAR. PATIENT HAS HAD DIARHEA, STOOL SAMPLE OBTAINED. PATIENT HAS HAD NO COMPLAINTS OF SOB NAUSEA, OR VOMITTING THIS SHIFT. BED IN LOCKED AND LOWEST POSITION. CALL LIGHT IN PLACE. WILL MONITOR UNTIL SHIFT CHANGE.
[2024-07-03 05:38] LABS: BASOPHILS ABSOLUTE AUTO 0.06 K/mm3 (0.00-0.23); BASOPHILS PERCENT AUTO 1 % (0-2); EOSINOPHILS ABSOLUTE AUTO 0.19 K/mm3 (0.00-0.68); EOSINOPHILS PERCENT AUTO 2 % (0-6); Hematocrit 34.7 % (33.0-51.0); Hemoglobin 12.4 g/dL (11.5-16.0); IMMATURE GRAN ABSOLUTE AUTO 0.02 K/mm3 (0.00-0.10); IMMATURE GRAN PERCENT AUTO 0 % (0-1); LYMPHOCYTES ABSOLUTE AUTO 2.67 K/mm3 (0.84-5.20); LYMPHOCYTES PERCENT AUTO 30 % (21-46); MONOCYTES ABSOLUTE AUTO 1.76 K/mm3 (0.16-1.47); MONOCYTES PERCENT AUTO 20 % (4-13); Mean Corpuscular HGB 31.6 pg (26.0-34.0); Mean Corpuscular HGB Conc 35.7 g/dL (31.5-36.5); Mean Corpuscular Volume 89 fL (80-100); Mean Platelet Volume 9.6 fL (9.1-12.4); NEUTROPHILS ABSOLUTE AUTO 4.12 K/mm3 (1.96-9.15); NEUTROPHILS PERCENT AUTO 47 % (41-73); Platelet Count 282 K/mm3 (150-400); RDW Coefficient Variation 14.9 % (11.7-14.2); RDW Standard Deviation 47.6 fL (35.1-46.3); Red Blood Cell Count 3.92 M/mm3 (3.80-5.20); White Blood Cell Count 8.82 K/mm3 (4.00-11.30)
[2024-07-03] MEDS ORDERED: Pantoprazole Sodium 40 MG Tab PO SCH (06:00)
[2024-07-03 06:13] LABS: Albumin, Blood 2.7 g/dL (3.4-5.0); Albumin/Globulin Ratio 0.8 (0.8-1.8); Bilirubin, Total 0.5 mg/dL (0.1-1.0); Bun/Creatinine Ratio 21.4 (12.0-20.0); Calcium, Blood 8.3 mg/dL (8.5-10.1); Creatinine, Blood 1.17 mg/dL (0.40-1.00); Globulin, Blood 3.5 g/dL (2.2-4.0); Potassium, Blood 3.3 mmol/L (3.5-5.5); Total Protein, Blood 6.2 g/dL (6.4-8.2)
[2024-07-03 07:03] VITALS: BP 142/62
[2024-07-03] MEDS ORDERED: Diltiazem HCl 180 MG Cap.CD PO SCH (09:00)
[2024-07-03] MEDS ORDERED: Cholecalciferol 1000 Unit Tablet (=25MCG) PO SCH (09:00)
[2024-07-03] MEDS ORDERED: Enoxaparin 30 MG/0.3 ML SYR SC SCH (09:00)
[2024-07-03 12:36] LABS: Bun/Creatinine Ratio 22.8 (12.0-20.0); Calcium, Blood 8.4 mg/dL (8.5-10.1); Creatinine, Blood 1.14 mg/dL (0.40-1.00); Potassium, Blood 3.5 mmol/L (3.5-5.5); Thyroid Stimulating Hormone 2.36 uIU/mL (0.360-4.800)
[2024-07-03] MEDS ORDERED: Sodium Bicarbonate 650 MG Tab PO SCH (13:00)
[2024-07-03] MEDS ORDERED: Banana Flakes/Tos 1 EA Powder Pack PO SCH (14:00)
[2024-07-03] MEDS ORDERED: Loperamide HCl 2 MG Cap PO PRN (14:35)
[2024-07-03 15:33] VITALS: BP 145/70
[2024-07-03] MEDS ORDERED: DILTIAZEM 24HR180 M3 PO (16:34)
--- NOTE | 2024-07-03 18:08 | NUR ---
SHIFT SUMMARY PATIENT ALERT AND INTERACTIVE. PATIENT AMBULATING IN ROOM WITH STAND BY ASSIST FOR TUBING AND WIRES. PATIENT CONTINUES TO HAVE SOME DISCOMFORT IN HER LEGS BUT MUCH BETTER THIS EVENING. PATIENT WORKED WITH THERAPY AND AMBULATED IN HALLS WITH THERAPY AND . IV FLUIDS WITH POTASSIUM INFUSING. EDUCATION PROVIDED RELATED TO DIET AND DIARRHEA. PATIENT TO POSSIBLY DISCHARGE TOMORROW IF LABS STABALIZED.
[2024-07-03 19:51] VITALS: BP 136/83
[2024-07-04 04:15] VITALS: BP 149/76
--- NOTE | 2024-07-04 05:26 | NUR ---
SHIFT SUMMARY PT A&Ox4 AND PLEASANT. NO C/O PAIN. PT HAD 2 EPISODES OF WATERY STOOL DURING THE SHIFT. DENIES FEELING NAUSEOUS OR ABD TENDERNESS. NS KCL INFUSING PER EMAR. ABLE TO MAKE NEEDS KNOWN BUT DID NOT USE CALL BUTTON FOR BATHROOM NEEDS. BED ALARM ON. VSS. BED IN LOWEST POSITION AND CALL LIGHT IN REACH.
[2024-07-04 06:18] LABS: BASOPHILS ABSOLUTE AUTO 0.06 K/mm3 (0.00-0.23); BASOPHILS PERCENT AUTO 1 % (0-2); EOSINOPHILS ABSOLUTE AUTO 0.39 K/mm3 (0.00-0.68); EOSINOPHILS PERCENT AUTO 5 % (0-6); Hematocrit 32.2 % (33.0-51.0); Hemoglobin 11.1 g/dL (11.5-16.0); IMMATURE GRAN ABSOLUTE AUTO 0.02 K/mm3 (0.00-0.10); IMMATURE GRAN PERCENT AUTO 0 % (0-1); LYMPHOCYTES ABSOLUTE AUTO 2.47 K/mm3 (0.84-5.20); LYMPHOCYTES PERCENT AUTO 30 % (21-46); MONOCYTES ABSOLUTE AUTO 1.27 K/mm3 (0.16-1.47); MONOCYTES PERCENT AUTO 15 % (4-13); Mean Corpuscular HGB 31.8 pg (26.0-34.0); Mean Corpuscular HGB Conc 34.5 g/dL (31.5-36.5); Mean Corpuscular Volume 92 fL (80-100); Mean Platelet Volume 9.7 fL (9.1-12.4); NEUTROPHILS ABSOLUTE AUTO 4.14 K/mm3 (1.96-9.15); NEUTROPHILS PERCENT AUTO 50 % (41-73); Platelet Count 274 K/mm3 (150-400); RDW Coefficient Variation 15.9 % (11.7-14.2); RDW Standard Deviation 53.1 fL (35.1-46.3); Red Blood Cell Count 3.49 M/mm3 (3.80-5.20); White Blood Cell Count 8.35 K/mm3 (4.00-11.30)
[2024-07-04 06:27] LABS: Bun/Creatinine Ratio 22.3 (12.0-20.0); Calcium, Blood 8.2 mg/dL (8.5-10.1); Creatinine, Blood 0.85 mg/dL (0.40-1.00); Potassium, Blood 3.5 mmol/L (3.5-5.5)
[2024-07-04 07:17] VITALS: BP 153/84
[2024-07-04] MEDS ORDERED: Potassium Chloride 20 MEQ TabCR PO ONE (09:00)
[2024-07-04] MEDS ORDERED: ONDA4 PO (11:06)
[2024-07-04] MEDS ORDERED: METO5A PO (11:13)
[2024-07-04] MEDS ORDERED: BANATROL PLUS1 EAC1 PO (11:14)
[2024-07-04] MEDS ORDERED: SODBIC650 PO (11:14)
--- NOTE | 2024-07-04 12:02 | NUR ---
DISCHARGE PT A&0X4, COHERENT, ABLE TO MAKE NEEDS KNOWN. THIS RN DC'D THE POWERGLIDE WITHOUT CONPLICATIONS, EDUCATION PROVIDED. THIS RN WHEELED PT DOWN TO FAMILY BIRTHPLACE USING WHEELCHAIR. CARRIED BELONGING WITH DISCHAGE PAPERWORK. DROVE CAR UP TO MUSIC ORCHESTRATOR PT. PT TRANSFERRED INTO CAR WITHOUT INJURY.
[2024-07-06 11:52] LABS: CALPROTECTIN,FECAL 41 ug/g (<=49)
== END 2024-07-04 11:50 | disposition home or self-care (01) | DRG 641 ==
LOC: ER 10:17 → MEDS 10:18 → ENPENDDIS 07-04 11:29 → MEDS 07-04 11:50
PROVIDERS: Nurse Practitioner Acute Care; Physician Assistant; Student in an Organized Health Care Education/Training Program; ADMIT Internal Medicine
DX: E87.6 Hypokalemia (principal); N17.9 Acute kidney failure, unspecified; Z68.1 Body mass index [BMI] 19.9 or less, adult; I10 Essential (primary) hypertension; K21.9 Gastro-esophageal reflux disease without esophagitis; K52.9 Noninfective gastroenteritis and colitis, unspecified; R63.4 Abnormal weight loss; E87.21 Acute metabolic acidosis; E86.0 Dehydration; E87.5 Hyperkalemia; M06.9 Rheumatoid arthritis, unspecified; Z90.49 Acquired absence of other specified parts of digestive tract; Z88.5 Allergy status to narcotic agent; Z88.8 Allergy status to other drugs, medicaments and biological substances; Z79.899 Other long term (current) drug therapy; Z79.82 Long term (current) use of aspirin; Z98.890 Other specified postprocedural states; Z90.89 Acquired absence of other organs; Z98.51 Tubal ligation status; Z90.710 Acquired absence of both cervix and uterus; Z87.891 Personal history of nicotine dependence
CPT/HCPCS: 36415; 80048; 80053; 82010; 83735; 83993; 84132; 84443; 85025; 87507; 93005; 93010; 94760; 96365; 96366; 96372; 96376; 97110; 97161; 97530; 99285-25; A9270; C1751; G0378; J1650; J3480; J7040; J7120

== ENCOUNTER 2024-09-08 12:18 | Day surgery (SDC) | payer MEDICARE, BC ==
[~2024-09-08] VITALS: Ht 157.5 cm; Wt 45.9 kg
[~2024-09-08 12:18] MED LIST changes: +BANATROL PLUS1 EAC1 PO; +DILTIAZEM 24HR180 M3 PO; +Lactated Ringer's 1,000 ML IV ONE; +METO5A PO; +SODBIC650 PO; +propofoL 50 ML IV ONE
[2024-09-08] MEDS ORDERED: propofoL 0 ML IV ONE (12:51)
[2024-09-08] MEDS ORDERED: BUDESONIDE EC3 M1 (13:02)
[2024-09-08] MEDS ORDERED: Lidocaine HCl 1% 30 ML SDV ONE (13:10)
[2024-09-08] MEDS ORDERED: Lactated Ringer's 1,000 ML IV ONE (13:25)
--- NOTE | 2024-09-08 13:43 | NUR ---
09/08/24 7603 RY LEVY ANESTHESIA GAVE VERBAL ORDER TO RN DEJA TO BOLUS 5OOML LR PREOP DUE TO PT DEHYDRATION. DR ALSO OK'S VERBALY THAT A MOIST MOUTH SWAB DEANDRE GIVEN TO MOISTEN PT GUMS/TONGUE AND TEETH PRE PROCEDURE.
--- NOTE | 2024-09-08 13:46 | NUR ---
09/08/24 1346 RY LEVY ANASTOMOSIS REACHED 1348
[2024-09-08 14:36] VITALS: BP 126/61
== END 2024-09-08 14:30 | disposition home or self-care (01) ==
LOC: ORSCSDS 12:18
PROVIDERS: Specialist
PROC: 0DBE8ZX Excision of Large Intestine, Via Natural or Artificial Opening Endoscopic, Diagnostic (ICD-10-PCS; principal; 2024-09-08 13:30)
DX: R19.4 Change in bowel habit (principal); R63.4 Abnormal weight loss; K52.831 Collagenous colitis; K64.8 Other hemorrhoids; R93.89 Abnormal findings on diagnostic imaging of other specified body structures; R10.9 Unspecified abdominal pain; Z87.11 Personal history of peptic ulcer disease; M06.9 Rheumatoid arthritis, unspecified; Z87.891 Personal history of nicotine dependence; Z79.82 Long term (current) use of aspirin; Z79.899 Other long term (current) drug therapy
CPT/HCPCS: 88305; 88313; J2704; J7120

== ENCOUNTER 2024-11-20 10:29 | Observation (INO) | payer MEDICARE, BC ==
[~2024-11-20] VITALS: Ht 157.5 cm; Wt 44.0 kg
[~2024-11-20 10:29] MED LIST changes: +BUDESONIDE EC3 M1; -Lactated Ringer's 1,000 ML IV ONE; -propofoL 50 ML IV ONE
[2024-11-20 11:46] LABS: BASOPHILS ABSOLUTE AUTO 0.07 K/mm3 (0.00-0.23); BASOPHILS PERCENT AUTO 1 % (0-2); EOSINOPHILS ABSOLUTE AUTO 0.18 K/mm3 (0.00-0.68); EOSINOPHILS PERCENT AUTO 2 % (0-6); Hematocrit 43.7 % (33.0-51.0); Hemoglobin 14.4 g/dL (11.5-16.0); IMMATURE GRAN ABSOLUTE AUTO 0.04 K/mm3 (0.00-0.10); IMMATURE GRAN PERCENT AUTO 0 % (0-1); LYMPHOCYTES ABSOLUTE AUTO 1.54 K/mm3 (0.84-5.20); LYMPHOCYTES PERCENT AUTO 17 % (21-46); MONOCYTES ABSOLUTE AUTO 0.91 K/mm3 (0.16-1.47); MONOCYTES PERCENT AUTO 10 % (4-13); Mean Corpuscular HGB 33.4 pg (26.0-34.0); Mean Corpuscular Volume 101 fL (80-100); Mean Platelet Volume 9.4 fL (9.1-12.4); NEUTROPHILS ABSOLUTE AUTO 6.56 K/mm3 (1.96-9.15); NEUTROPHILS PERCENT AUTO 71 % (41-73); Platelet Count 270 K/mm3 (150-400); RDW Coefficient Variation 13.9 % (11.7-14.2); Red Blood Cell Count 4.31 M/mm3 (3.80-5.20)
[2024-11-20 12:09] LABS: Albumin, Blood 3.3 g/dL (3.4-5.0); Albumin/Globulin Ratio 0.9 (0.8-1.8); Bilirubin, Total 0.3 mg/dL (0.1-1.0); Bun/Creatinine Ratio 32.9 (12.0-20.0); Creatinine, Blood 0.94 mg/dL (0.40-1.00); Globulin, Blood 3.8 g/dL (2.2-4.0); Potassium, Blood 4.2 mmol/L (3.5-5.5); Total Protein, Blood 7.1 g/dL (6.4-8.2)
[2024-11-20] MEDS ORDERED: DULO30 PO (12:40)
[2024-11-20] MEDS ORDERED: NS 1,000 ML IV SCH (13:55)
[2024-11-20] MEDS ORDERED: ASCO500 PO (14:15)
[2024-11-20] MEDS ORDERED: POTA10T PO (14:16)
[2024-11-20] MEDS ORDERED: VITAMIN D325 MC3 PO (14:24)
[2024-11-20] MEDS ORDERED: ZINC15 PO (14:24)
[2024-11-20] MEDS ORDERED: Aspir 8181 MG PO (14:25)
[2024-11-20] MEDS ORDERED: BUDESONIDE EC3 M1 PO (14:25)
[2024-11-20] MEDS ORDERED: TRAM50 PO (14:27)
[2024-11-20] MEDS ORDERED: VITAMIN E180 MG PO (14:28)
[2024-11-20] MEDS ORDERED: LOMOTIL 2.5-0.1 EACH (14:28)
[2024-11-20] MEDS ORDERED: Ondansetron 4 MG TAB PO PRN (15:10)
[2024-11-20] MEDS ORDERED: FLU VACC TS2024-25(6MOS UP)/PF 45 MCG/0.5 ML SYRINGE IM SCH (15:15)
[2024-11-20] MEDS ORDERED: Magnesium Hydroxide Conc 10 ML UDC PO PRN (15:15)
[2024-11-20] MEDS ORDERED: TraMADol HCl 50 MG Tab PO PRN (15:20)
[2024-11-20 15:40] LABS: Alanine Aminotransfer (ALT/SGP 29 U/L (12-78); Albumin, Blood 3.3 g/dL (3.4-5.0); Albumin/Globulin Ratio 0.8 (0.8-1.8); Alk Phos 62 U/L (50-136); Aspartate Aminotrans (AST/SGOT 24 U/L (12-37); Bilirubin, Direct <0.1 mg/dL (0.0-0.3); Bilirubin, Indirect Unable to Calculate mg/dL (0.1-0.7); Bilirubin, Total 0.3 mg/dL (0.1-1.0); Globulin, Blood 3.9 g/dL (2.2-4.0); Total Protein, Blood 7.2 g/dL (6.4-8.2)
[2024-11-20] MEDS ORDERED: Pantoprazole Sodium 40 MG Tab PO SCH (16:30)
[2024-11-20] MEDS ORDERED: Enoxaparin 40 MG/0.4 ML SYR SC SCH (17:00)
[2024-11-20] MEDS ORDERED: Losartan Potassium 50 MG Tab PO SCH ×2 (17:00→18:00)
[2024-11-20] MEDS ORDERED: Labetalol HCL 5 MG/ML 4ML Injection (Single Dose) IV PRN (17:55)
[2024-11-20] MEDS ORDERED: Acetaminophen 325 MG TABLET PO PRN (17:55)
[2024-11-20 20:00] VITALS: BP 149/79
[2024-11-20 20:07] VITALS: BP 141/98
[2024-11-20 23:08] VITALS: BP 140/73
[2024-11-21] MEDS ORDERED: NS 1,000 ML IV SCH (01:09)
[2024-11-21 03:42] VITALS: BP 153/75
[2024-11-21 05:17] LABS: Hematocrit 38.9 % (33.0-51.0); Hemoglobin 12.8 g/dL (11.5-16.0); Mean Corpuscular HGB 33.2 pg (26.0-34.0); Mean Corpuscular HGB Conc 32.9 g/dL (31.5-36.5); Mean Corpuscular Volume 101 fL (80-100); Mean Platelet Volume 9.3 fL (9.1-12.4); Platelet Count 234 K/mm3 (150-400); RDW Coefficient Variation 14.2 % (11.7-14.2); RDW Standard Deviation 53.4 fL (35.1-46.3); Red Blood Cell Count 3.85 M/mm3 (3.80-5.20); White Blood Cell Count 7.03 K/mm3 (4.00-11.30)
[2024-11-21 05:44] LABS: Bun/Creatinine Ratio 32.9 (12.0-20.0); Calcium, Blood 8.7 mg/dL (8.5-10.1); Creatinine, Blood 0.76 mg/dL (0.40-1.00); Potassium, Blood 4.3 mmol/L (3.5-5.5)
[2024-11-21] MEDS ORDERED: InFLIXimab-DYYB 100 MG Vial IV SCH (07:10)
[2024-11-21 07:57] VITALS: BP 153/94
[2024-11-21] MEDS ORDERED: Enoxaparin 30 MG/0.3 ML SYR SC SCH ×2 (09:00)
[2024-11-21] MEDS ORDERED: Multivitamins/Minerals TAB PO SCH (09:00)
[2024-11-21] MEDS ORDERED: DULoxetine HCL 30 MG Cap DR PO SCH (09:00)
[2024-11-21] MEDS ORDERED: Ascorbic Acid 500 MG Tab PO SCH (09:00)
[2024-11-21] MEDS ORDERED: Cholecalciferol 1000 Unit Tablet (=25MCG) PO SCH (09:00)
[2024-11-21] MEDS ORDERED: Losartan Potassium 50 MG Tab PO SCH (09:00)
[2024-11-21 12:01] VITALS: BP 141/84
[2024-11-21 15:45] VITALS: BP 160/79
[2024-11-21 20:00] VITALS: BP 149/76
[2024-11-21 23:16] VITALS: BP 160/85
[2024-11-22 02:47] VITALS: BP 147/78
[2024-11-22 02:49] VITALS: BP 137/82
[2024-11-22 06:10] LABS: Hematocrit 37.6 % (33.0-51.0); Hemoglobin 12.4 g/dL (11.5-16.0); Mean Corpuscular HGB 33.2 pg (26.0-34.0); Mean Corpuscular Volume 101 fL (80-100); Mean Platelet Volume 9.6 fL (9.1-12.4); Platelet Count 239 K/mm3 (150-400); RDW Coefficient Variation 13.9 % (11.7-14.2); RDW Standard Deviation 52.1 fL (35.1-46.3); Red Blood Cell Count 3.73 M/mm3 (3.80-5.20); White Blood Cell Count 6.71 K/mm3 (4.00-11.30)
[2024-11-22 06:56] LABS: Bun/Creatinine Ratio 22.9 (12.0-20.0); Creatinine, Blood 0.87 mg/dL (0.40-1.00); Potassium, Blood 4.1 mmol/L (3.5-5.5)
[2024-11-22 07:04] VITALS: BP 183/93
[2024-11-22 09:36] VITALS: BP 129/75
[2024-11-22 09:39] VITALS: BP 123/72
[2024-11-22 10:59] VITALS: BP 111/84
[2024-11-22] MEDS ORDERED: Metoprolol Succinate 25 MG TABCR PO SCH (11:00)
[2024-11-22] MEDS ORDERED: ACET325 PO (11:30)
[2024-11-22] MEDS ORDERED: LOSA50 PO (11:30)
[2024-11-23] MEDS ORDERED: Metoprolol Succinate 25 MG TABCR PO SCH (09:00)
== END 2024-11-22 12:21 | disposition home health service (06) ==
LOC: ER 10:29 → MEDS 10:30 → EDBEDREQ 18:16 → MEDS 18:45
PROVIDERS: Physician Assistant; Registered Nurse; ADMIT Hospitalist
DX: I35.0 Nonrheumatic aortic (valve) stenosis (principal); I10 Essential (primary) hypertension; K21.9 Gastro-esophageal reflux disease without esophagitis; I73.00 Raynaud's syndrome without gangrene; F32.A Depression, unspecified; Z90.49 Acquired absence of other specified parts of digestive tract; Z87.891 Personal history of nicotine dependence; Z88.5 Allergy status to narcotic agent; Z88.2 Allergy status to sulfonamides; Z88.1 Allergy status to other antibiotic agents; Z79.82 Long term (current) use of aspirin; Z79.899 Other long term (current) drug therapy
CPT/HCPCS: 36415; 70450; 80048; 80053; 80076; 83735; 84443; 84484; 85025; 85027; 93005; 93010; 93246; 93306; 96372; 97110; 97116; 97162; 99285-25; A9270; G0378; J1650; J7030

== ENCOUNTER → 2025-01-06 | Outpatient (CLI) | payer MEDICARE, BC ==
[~2025-01-06] MED LIST changes: +Aspir 8181 MG PO; +BUDESONIDE EC3 M1 PO; +DULO30 PO; +LOMOTIL 2.5-0.1 EACH; +TRAM50 PO; +VITAMIN D325 MC3 PO; +VITAMIN E180 MG PO
== END ==
LOC: LAB 15:28 → LAB SHORT 15:28
DX: R30.0 Dysuria (principal)
CPT/HCPCS: 87077; 87086; 87186

== ENCOUNTER 2025-06-17 15:12 | Emergency (ER) | payer MEDICARE, BC ==
[~2025-06-17] VITALS: Ht 154.9 cm; Wt 52.2 kg
[2025-06-17 15:39] VITALS: BP 147/79
[2025-06-17 16:02] LABS: Hematocrit 33.7 % (33.0-51.0); Hemoglobin 11.1 g/dL (11.5-16.0); Mean Corpuscular HGB Conc 32.9 g/dL (31.5-36.5); Mean Corpuscular Volume 93 fL (80-100); NRBC ABSOLUTE 0.00 K/mm3 (0.00-0.02); NRBC Auto 0.0 /100 WBC (0.0-0.2); Platelet Count 148 K/mm3 (150-400); RDW Coefficient Variation 13.6 % (11.7-14.2); RDW Standard Deviation 46.0 fL (35.1-46.3)
[2025-06-17 16:25] LABS: BAND PERCENT MAN 4 % (0-8); BASOPHILS ABSOLUTE MAN 0.00 K/mm3 (0.00-0.23); BASOPHILS PERCENT MAN 0 % (0-2); EOSINOPHILS ABSOLUTE MAN 0.00 K/mm3 (0.00-0.68); EOSINOPHILS PERCENT MAN 0 % (0-6); LYMPHOCYTES ABSOLUTE MAN 1.73 K/mm3 (0.84-5.20); LYMPHOCYTES PERCENT MAN 10 % (21-46); MONOCYTES ABSOLUTE MAN 1.21 K/mm3 (0.16-1.47); MONOCYTES PERCENT MAN 7 % (4-13); NEUTROPHILS ABSOLUTE MAN 14.37 K/mm3 (1.96-9.15); SEG NEUTROPHILS PERCENT MAN 79 % (41-73)
[2025-06-17 16:41] LABS: Alanine Aminotransfer (ALT/SGP 19.0 U/L (12-78); Albumin, Blood 3.1 g/dL (3.4-5.0); Albumin/Globulin Ratio 0.8 (0.8-1.8); Anion Gap 8.0 mmol/L (3-11); Aspartate Aminotrans (AST/SGOT 28.0 U/L (12-37); Bilirubin, Total 0.2 mg/dL (0.1-1.0); Blood Urea Nitrogen 30.0 mg/dL (8-24); CO2, Blood 26.0 mmol/L (21-32); Calcium, Blood 8.7 mg/dL (8.5-10.1); Chloride, Blood 99.0 mmol/L (98-108); Creatinine, Blood 0.67 mg/dL (0.40-1.00); Globulin, Blood 3.9 g/dL (2.2-4.0); Glucose, Blood 112.0 mg/dL (70-99); Potassium, Blood 4.1 mmol/L (3.5-5.5); Sodium, Blood 129.0 mmol/L (136-145); Total Protein, Blood 7.0 g/dL (6.4-8.2)
== END 2025-06-17 21:25 | disposition left against medical advice (07) ==
LOC: ER 15:12
PROVIDERS: Student in an Organized Health Care Education/Training Program
DX: Z53.21 Procedure and treatment not carried out due to patient leaving prior to being seen by health care provider (principal)
CPT/HCPCS: 80053; 84484; 85025; 93005; 93010

== ENCOUNTER 2025-07-03 11:03 | Inpatient (IN) | payer MEDICARE, BC ==
[~2025-07-03] VITALS: Ht 152.4 cm; Wt 46.2 kg
[2025-07-03] MEDS ORDERED: METOPROL SUC TAB 50M (11:16)
[2025-07-03] MEDS ORDERED: ELIQUIS2.5 M1 PO (11:16)
[2025-07-03] MEDS ORDERED: AMLODIPINE BES2.5 MG PO (11:16)
[2025-07-03] MEDS ORDERED: NS 500 ML IV SCH (11:20)
[2025-07-03] MEDS ORDERED: Metoprolol Tartrate 1 MG/ML 5 ML VIAL IV ONE (11:20)
[2025-07-03] MEDS ORDERED: Metoclopramide HCl 5MG / ML 2ML Vial IV ONE (11:25)
[2025-07-03 11:28] LABS: BASOPHILS ABSOLUTE AUTO 0.03 K/mm3 (0.00-0.23); BASOPHILS PERCENT AUTO 1 % (0-2); EOSINOPHILS ABSOLUTE AUTO 0.01 K/mm3 (0.00-0.68); EOSINOPHILS PERCENT AUTO 0 % (0-6); Hematocrit 36.9 % (33.0-51.0); Hemoglobin 12.8 g/dL (11.5-16.0); IMMATURE GRAN ABSOLUTE AUTO 0.05 K/mm3 (0.00-0.10); IMMATURE GRAN PERCENT AUTO 1 % (0-1); LYMPHOCYTES ABSOLUTE AUTO 1.00 K/mm3 (0.84-5.20); LYMPHOCYTES PERCENT AUTO 29 % (21-46); MONOCYTES ABSOLUTE AUTO 0.58 K/mm3 (0.16-1.47); MONOCYTES PERCENT AUTO 17 % (4-13); Mean Corpuscular HGB Conc 34.7 g/dL (31.5-36.5); Mean Corpuscular Volume 89 fL (80-100); NEUTROPHILS ABSOLUTE AUTO 1.83 K/mm3 (1.96-9.15); NEUTROPHILS PERCENT AUTO 52 % (41-73); NRBC ABSOLUTE 0.00 K/mm3 (0.00-0.02); NRBC Auto 0.0 /100 WBC (0.0-0.2); Platelet Count 137 K/mm3 (150-400); RDW Coefficient Variation 15.3 % (11.7-14.2); RDW Standard Deviation 49.4 fL (35.1-46.3)
[2025-07-03 11:35] LABS: Source, Urine Straight Cath
[2025-07-03 11:39] LABS: Bilirubin, Urine Neg (Neg); Color, Urine Yellow (P-Yellow); Glucose Qualitative, Urine Neg (Neg); Ketones, Urine 2+ (Neg); Leukocyte Esterase, Urine 1+ (Neg); Protein, Urine 3+ (Neg); Specific Gravity, Urine 1.010 (1.003-1.022); Urobilinogen, Urine NORM (Normal)
[2025-07-03 11:48] LABS: White Blood Cells, Urine 25-50 /hpf (0-5)
[2025-07-03 11:53] LABS: Alanine Aminotransfer (ALT/SGP 24.0 U/L (12-78); Albumin, Blood 3.2 g/dL (3.4-5.0); Albumin/Globulin Ratio 0.8 (0.8-1.8); Anion Gap 12.0 mmol/L (3-11); Aspartate Aminotrans (AST/SGOT 31.0 U/L (12-37); Bilirubin, Total 0.2 mg/dL (0.1-1.0); Blood Urea Nitrogen 12.0 mg/dL (8-24); CO2, Blood 24.0 mmol/L (21-32); Calcium, Blood 8.6 mg/dL (8.5-10.1); Chloride, Blood 90.0 mmol/L (98-108); Creatinine, Blood 0.64 mg/dL (0.40-1.00); Globulin, Blood 3.8 g/dL (2.2-4.0); Glucose, Blood 135.0 mg/dL (70-99); Magnesium, Blood 1.8 mg/dL (1.6-2.4); Potassium, Blood 3.8 mmol/L (3.5-5.5); Sodium, Blood 122.0 mmol/L (136-145); Total Protein, Blood 7.0 g/dL (6.4-8.2)
[2025-07-03] MEDS ORDERED: CefTRIAXone Sodium 1,000 MG in NS 50 ML IV ONE (13:45)
[2025-07-03 15:07] LABS: Source, Urine Straight Cath
[2025-07-03 15:09] LABS: Bilirubin, Urine Neg (Neg); Color, Urine Yellow (P-Yellow); Glucose Qualitative, Urine Neg (Neg); Ketones, Urine 2+ (Neg); Leukocyte Esterase, Urine Neg (Neg); Protein, Urine 2+ (Neg); Specific Gravity, Urine 1.010 (1.003-1.022); Urobilinogen, Urine NORM (Normal)
[2025-07-03] MEDS ORDERED: Vancomycin (Pharmacy Consult) IV SCH (15:30)
[2025-07-03] MEDS ORDERED: Ipratropium/Albuterol SulF 2.5-0.5MG/3 ML Amp INH SCH (15:35)
[2025-07-03] MEDS ORDERED: Metoprolol Tartrate 1 MG/ML 5 ML VIAL IV PRN (15:35)
[2025-07-03] MEDS ORDERED: Albuterol 2.5 MG/3 ML VIAL INH PRN (15:40)
[2025-07-03] MEDS ORDERED: NS 1,000 ML IV ONE (15:45)
[2025-07-03] MEDS ORDERED: FLU VACC TS2025(65UP)/MF59C/PF 45 MCG/0.5 ML SYRINGE IM SCH (15:45)
[2025-07-03] MEDS ORDERED: Piperacillin/Tazobactam Sod 2.25 GM in NS 50 ML IV SCH (16:00)
[2025-07-03 17:42] VITALS: BP 164/104
[2025-07-03 18:38] VITALS: BP 205/103
[2025-07-03 18:54] VITALS: BP 175/86
--- NOTE | 2025-07-03 18:55 | NUR ---
PATIENT ADMIT TO PCU. USED SLIDE SHEET TO TRANSFER. ALERT AND ORIENTED X4. VOICE SOFT AND PATIENT OVERALL FRAGILE AND WEAK. LAST CHEMO ON SATURDAY. MOVING ALL EXTREMITIES. ABLE TO REPOSITION SELF IN BED. DENIES PAINS AT THIS TIME. ON 2L NASAL CANNULA SATING 90-95%. LOOSE COUGH WITH YELLOW/BOWSER SPUTUM PRODUCTION. LUNG SOUNDS CLEAR WITH CRACKLES IN BILATERAL BASES. TELE SHOWING ST WITH HR 90-100'S. HISTORY OF AFIB. PPP. IV FLUIDS AND IV ABX INFUSING. ELEVATED BLOOD PRESSURE. NO EDEMA NOTED. BOWEL TONES PRESENT. PATIENT EATING DINNER AT THIS TIME. PUREWICK IN PLACE. DENIES ABDOMINAL PAIN/NAUSEA. SKIN FRAGILE WITH SCATTERED BRUISING. DON AT BEDSIDE AND UPDATED ON PLAN OF CARE. DR. PETERSON CALLED TO UPDATE ON ELEVATED LACTIC AND ELEVATED BLOOD PRESSURE. ORDERS TO RETAKE BLOOD PRESSURE IN 15 MIN AND UPDATE. REDRAW OF LACTIC AT 2039.
--- NOTE | 2025-07-03 19:02 | NUR ---
CODE STATUS/BLOOD PRESSURE DR. PETERSON CALLED BY THIS RN TO UPDATE ON BLOOD PRESSURE. THIS RN ALSO DISCUSSED CODE STATUS WITH PATIENT AND AND BEDSIDE AND PATIENT VERBALIZES SHE WOULD LIKE TO BE A DNR. DR. DAMON UPDATED ON DNR WISHES.
[2025-07-03] MEDS ORDERED: HydrALAZINE HCl 20 MG / ML 1ML Vial IV PRN (19:10)
--- NOTE | 2025-07-03 19:26 | NUR ---
ASSUMPTION OF CARE ASSUMED PT'S CARE AT 1900.PT ON THE BEDSIDE COMMODE,SPOUSE AT BEDSIDE.PLAN OF CARE REVIEWED.PT DENIES PAIN,DENIES SOB,DENIES NEEDS.CALL LIGHT AND PT'S ITEMS WITHIN REACH.MONITORING ONGOING PER CAREPLAN.
[2025-07-03 20:24] VITALS: BP 141/65
[2025-07-03] MEDS ORDERED: Lactobacil 2-S.Thermo-Bifido 1 1 Cap PO SCH (21:00)
[2025-07-04] VITALS (7 sets, daily range): BP systolic 132–165; BP diastolic 59–80
[2025-07-04 03:59] LABS: Hematocrit 29.7 % (33.0-51.0); Hemoglobin 10.1 g/dL (11.5-16.0); Mean Corpuscular HGB Conc 34.0 g/dL (31.5-36.5); Mean Corpuscular Volume 92 fL (80-100); NRBC ABSOLUTE 0.00 K/mm3 (0.00-0.02); NRBC Auto 0.0 /100 WBC (0.0-0.2); Platelet Count 120 K/mm3 (150-400); RDW Coefficient Variation 15.4 % (11.7-14.2); RDW Standard Deviation 52.0 fL (35.1-46.3)
[2025-07-04 04:24] LABS: Anion Gap 8 mmol/L (3-11); Blood Urea Nitrogen 15 mg/dL (8-24); CO2, Blood 24 mmol/L (21-32); Calcium, Blood 7.6 mg/dL (8.5-10.1); Chloride, Blood 98 mmol/L (98-108); Creatinine, Blood 0.57 mg/dL (0.40-1.00); Glucose, Blood 95 mg/dL (70-99); Potassium, Blood 3.3 mmol/L (3.5-5.5); Sodium, Blood 127 mmol/L (136-145); Vancomycin, Random 9.3 ug/mL
[2025-07-04] MEDS ORDERED: NS 1,000 ML IV SCH (06:05)
--- NOTE | 2025-07-04 06:29 | NUR ---
PT MONITORED DURING THE SHIFT,NO ACUTE EVENTS NOTED.PT MAINTAINED OXYGEN SATURATION >92% ON 2L.POTASSIUM LEVEL AT 3.3 AND SODIUM AT 127 THIS AM. NOTIFIED.ORDER PLACED FOR NORMAL SALINE AT 100ML/HR AND POTASSIUM 40MEQ PO.MEDS ADMINISTERED AND FLUID INFUSION STARTED ORDERED.PT AWAKE,DENIES PAIN,DENIES NEEDS THIS AT THIS TIME.CALL LIGHT AND PT'S ITEMS WITHIN REACH.MONITORING ONGOING PER CAREPLAN.
[2025-07-04] MEDS ORDERED: Multivitamins/Minerals 1 Tab PO SCH (09:00)
[2025-07-04] MEDS ORDERED: Vitamin E 400 Intn'l Units Cap PO SCH (09:00)
[2025-07-04] MEDS ORDERED: Cholecalciferol 1000 Unit Tablet (=25MCG) PO SCH (09:00)
[2025-07-04] MEDS ORDERED: Zinc Sulfate 220 MG Cap (Provides 50MG) PO SCH (09:00)
[2025-07-04] MEDS ORDERED: ASCO500 PO (09:15)
[2025-07-04] MEDS ORDERED: ASPI81CH PO (09:16)
[2025-07-04] MEDS ORDERED: TRAM50 PO (09:17)
[2025-07-04] MEDS ORDERED: METO50ER PO (09:22)
--- NOTE | 2025-07-04 09:52 | NUR ---
AM NOTE: PATIENT ALERT AND ORIENTED X4. VOICE SOFT. ABLE TO MAKE NEEDS KNOWN. USING CALL LIGHT. 1 PERSON ASSIST. PT ASSESSMENT THIS AM. MOVING ALL EXTREMITIES. ABLE TO TURN SELF IND IN BED. ON ROOM AIR - 2L NASAL CANNULA. LUNG SOUNDS WITH CRACKLES IN BASES. PRODUCTIVE COUGH. TELE SHOWING SR/ST WITHHR 90-100'S. DENIES CHEST PAIN/PRESSURE/PALPITATIONS. IV FLUIDS AND ABX INFUSING PER EMAR. NO EDEMA NOTED. BOWEL TONES PRESENT. TOLERATING PO DIET. DENIES ABDOMINAL PAIN/NAUSEA. ATTENDS AND PUREWICK IN PLACE. SKIN KHANG AND FRAGILE. DON IN THIS AM AND BROUGHT PATIENT GLASSES. MED REC REVIEWED AND COMPLETED. PATIENT HAS APPOINTMENT TO RECIEVE PORT PLACEMENT FOR CHEMO TREATMENTS July AND WAS TOLD TO STOP TAKING ELIQUIS . CALL LIGHT IN REACH. DENIES NEEDS AT THIS TIME.
[2025-07-04] MEDS ORDERED: DEXTROMETHORPHAN/BENZOCAINE 1 EACH LOZENGE MT PRN (10:30)
--- NOTE | 2025-07-04 10:51 | NUR ---
DR. CHAVARRIA AT BEDSIDE FOR MD ROUNDING, THIS RN PRESENT. ORDERS FOR MEDICAL STATUS NO TELE. THIS RN DISCUSSED PATIENT ELIQUIS AND UPCOMING PORT PLACEMENT. PLAN TO CONTINUE ELIQUIS AT THIS TIME.
--- NOTE | 2025-07-04 17:44 | NUR ---
RHYTHM CHANGE WHILE EATING DINNER. PATIENT TELE READING AFIB UP TO THE 120- 160'S FOR 1-2 MIN WHILE EATING DINNER. DR. CHAVARRIA CALLED TO UPDATE. BLOOD PRESSURE STABLE. ADDITIONAL PO METOPROLOL ADDED AND TOMORROW MORNING DOSE INCREASED. SEE EMAR. PATIENT CONTIUES TO EAT DINNER. DENIES SYMPTOMS.
[2025-07-05 04:13] VITALS: BP 156/94
--- NOTE | 2025-07-05 04:32 | NUR ---
ASSUMED CARE OF PT AT 1900. PT AWAKE, ALERT AND ORIENTED X 4. HR FLUCTUATING BETWEEN AFIB AND NSR THROUGHOUT THE NIGHT. NO SUSTAINED HR >120 REQUIRING PRN LOPRESSOR. PT ON 2L NC WHILE ASLEEP WITH O2 SATURATIONS >92. ALL OTHER VSS. PUREWICK IN PLACE. BED IN LOWEST POSITION AND CALL LIGHT WITHIN REACH.
[2025-07-05 04:55] LABS: Hematocrit 28.7 % (33.0-51.0); Hemoglobin 9.8 g/dL (11.5-16.0); Mean Corpuscular HGB Conc 34.1 g/dL (31.5-36.5); Mean Corpuscular Volume 89 fL (80-100); NRBC ABSOLUTE 0.00 K/mm3 (0.00-0.02); NRBC Auto 0.0 /100 WBC (0.0-0.2); Platelet Count 116 K/mm3 (150-400); RDW Coefficient Variation 15.6 % (11.7-14.2); RDW Standard Deviation 50.4 fL (35.1-46.3)
[2025-07-05 05:48] LABS: Anion Gap 11 mmol/L (3-11); Blood Urea Nitrogen 9 mg/dL (8-24); CO2, Blood 22 mmol/L (21-32); Calcium, Blood 7.7 mg/dL (8.5-10.1); Chloride, Blood 97 mmol/L (98-108); Creatinine, Blood 0.52 mg/dL (0.40-1.00); Glucose, Blood 90 mg/dL (70-99); Potassium, Blood 3.5 mmol/L (3.5-5.5); Sodium, Blood 126 mmol/L (136-145); Vancomycin, Random 7.5 ug/mL
[2025-07-05 08:06] VITALS: BP 155/74
--- NOTE | 2025-07-05 10:38 | NUR ---
P.t is awake in bed. Spouse is at bedside and welcomes my visit. Pt. is soft spoken but is pleasant. Facilitated a life review and listened with empathy and a calming presence. Pt. displayed evidence of being reserved, wheras spouse displayed evidence of being engaged in my visit. Pt. welcomed prayer. Pt. verbalized gratitude for the spiritual care visit and welcmoed this lidar technician to return.
[2025-07-05 13:00] VITALS: BP 152/97
[2025-07-05] MEDS ORDERED: AMOCLA500 PO (13:25)
[2025-07-05] MEDS ORDERED: Zithromax Tri-500 MG PO (13:27)
[2025-07-05] MEDS ORDERED: GUAI600T33 PO (13:27)
[2025-07-05] MEDS ORDERED: PROBIOTIC1 EA14 PO (13:28)
[2025-07-05] MEDS ORDERED: CEPACOL MT (13:29)
--- NOTE | 2025-07-05 14:35 | NUR ---
SHIFT SUMMARY/ DISCHARGE NOTE: PT A&OX4. FOLLOWS COMMANDS AND MAKES NEEDS KNOWN TO STAFF. PT REMAINED FREE OF ANY CP, PRESSURE, TIGHTNESS OR SOB. VSS. MAP >65. ON RA. NO SIGNIFICANT EVENTS HAPPENED DURING THIS SHIFT. PT DISCHARGED TO HOME IN NO ACUTE STRESS AT THIS TIME. THIS RN WENT OVER WRITTEN AND VERBAL DISCHARGE INSTRUCTIONS WITH PT. PT DENIES ANY QUESTIONS OR CONCERNS. IV WAS REMOVED WITH CATHETER INTACT. BELONGINGS WERE COLLECTED AND PT WAS WHEELED OUT TO CAR BY THIS RN WITH HER HER RIDE.
[2025-07-05] MEDS ORDERED: Piperacillin/Tazobactam Sod 3.375 GM in NS 100 ML IV SCH (16:00)
== END 2025-07-05 14:51 | disposition home health service (06) | DRG 871 ==
LOC: ER 11:03 → PCU 15:28
PROVIDERS: Student in an Organized Health Care Education/Training Program; ADMIT Internal Medicine
DX: A41.51 Sepsis due to Escherichia coli [E. coli] (principal); J18.9 Pneumonia, unspecified organism; J96.01 Acute respiratory failure with hypoxia; I48.92 Unspecified atrial flutter; I50.22 Chronic systolic (congestive) heart failure; N39.0 Urinary tract infection, site not specified; E87.1 Hypo-osmolality and hyponatremia; K51.90 Ulcerative colitis, unspecified, without complications; C34.90 Malignant neoplasm of unspecified part of unspecified bronchus or lung; I11.0 Hypertensive heart disease with heart failure; Z66 Do not resuscitate; R65.20 Severe sepsis without septic shock; K21.9 Gastro-esophageal reflux disease without esophagitis; F32.A Depression, unspecified; M06.9 Rheumatoid arthritis, unspecified; I48.91 Unspecified atrial fibrillation; Z95.4 Presence of other heart-valve replacement; Z82.49 Family history of ischemic heart disease and other diseases of the circulatory system; Z83.3 Family history of diabetes mellitus; Z88.2 Allergy status to sulfonamides; Z88.5 Allergy status to narcotic agent; Z88.8 Allergy status to other drugs, medicaments and biological substances; Z79.01 Long term (current) use of anticoagulants; Z79.899 Other long term (current) drug therapy; Z90.49 Acquired absence of other specified parts of digestive tract; Z90.710 Acquired absence of both cervix and uterus; Z98.891 History of uterine scar from previous surgery; Z98.890 Other specified postprocedural states; Z90.89 Acquired absence of other organs; Z87.891 Personal history of nicotine dependence; Z85.118 Personal history of other malignant neoplasm of bronchus and lung; W18.30XA Fall on same level, unspecified, initial encounter
CPT/HCPCS: 36415; 70450; 70470; 71046; 72125; 80048; 80053; 80202; 81001; 82550; 83605; 83735; 85025; 85027; 87040; 87077; 87086; 87186; 93005; 93010; 94640; 94664; 94760; 94761; 94762; 96365; 96375; 97110; 97162; 97165; 97530; 99285-25; A9270; J0456; J0696; J2543; J2765; J3373; J7030; J7050; Q9967

== ENCOUNTER → 2025-07-26 | Outpatient (CLI) | payer MEDICARE, BC ==
[~2025-07-26] MED LIST changes: +AMLODIPINE BES2.5 MG PO; +AMOCLA500 PO; +ASPI81CH PO; +CEPACOL MT; +ELIQUIS2.5 M1 PO; +GUAI600T33 PO; +METO50ER PO; +METOPROL SUC TAB 50M; +PROBIOTIC1 EA14 PO; +Zithromax Tri-500 MG PO
[2025-07-26 18:13] LABS: Bilirubin, Urine Neg (Neg); Color, Urine Yellow (P-Yellow); Glucose Qualitative, Urine Neg (Neg); Ketones, Urine Neg (Neg); Leukocyte Esterase, Urine 1+ (Neg); Protein, Urine 2+ (Neg); Specific Gravity, Urine 1.010 (1.003-1.022); Urobilinogen, Urine 1+ (Normal)
[2025-07-26 18:26] LABS: Red Blood Cells, Urine 0-2 /hpf (0-2); White Blood Cells, Urine 0-2 /hpf (0-5)
== END | disposition home or self-care (01) ==
LOC: LAB 15:14 → LAB SHORT 15:14
PROVIDERS: Family Medicine
DX: N39.0 Urinary tract infection, site not specified (principal)
CPT/HCPCS: 81001; 87077; 87086; 87186